=== PATIENT | female | born 1960 | race Caucasian/White ===

== ENCOUNTER 2016-10-03 19:30 | Inpatient (IN) | payer OTHER ==
[~2016-10-03] VITALS: Ht 165.1 cm; Wt 73.1 kg
[~2016-10-03 19:30] MED LIST: CLIN300C86 PO; IBUP-2067 PO
--- OUTSIDE RECORDS SUMMARY | 2016-10-03 19:41 | XMS REPORT | Continuity of Care Document ---
Author Author [facility] Organization [facility] Address Unknown Phone Unavailable Care Team Providers Care Wildlife Refuge Manager Name Role Phone PRISCA MCCOY MD Primary Care Physician [phone] Insurance Providers Guarantor Rebecca Soliman Address [address] [place] [address] Payer [employer] Other Policy Number [id number] Subscriber's Name [employer] Tiny Solisette Relationship 18 Self Effective Date 06 Chief Complaint and Reason for Visit Chief Complaint Lower Extremity Problem Reason for Visit Callus of foot [id number] Problems Active Problems Medical Problem Onset Date Status Callus of foot Unknown Acute Cellulitis of foot, right Unknown Acute Medications Current Home Medications Medication Dose Units Route Directions Days Qty Instructions Start Date Clindamycin Hcl 300 Mg Capsule 300 Mg Oral Four Times Daily 10 Days [address] Victor Manuel Kennedy [employer] [address] [phone] 09/17/16 Ibuprofen 600 Mg Tablet 1 Tab Oral Every 8 Hours Prn as needed for Pain 5 Days [address] Victor Manuel Kennedy [facility] [address] [phone] 09/17/16 Social History No social history. Hospital Discharge Instructions No hospital discharge instructions. Plan of Care Discharge Date 09/17/16 7:54pm Disposition 01 DISCHARGED HOME, SELF-CARE Condition at Discharge Stable Instructions/Education Provided Cellulitis (DC) Forms Provided [facility] Work/School Permit Prescriptions See Medication Section Referrals PRISCA MCCOY MD Address: [address] [place] [address] [place] [phone] Additional Instructions/Education Take clindamycin as directed. Go to [facility] for outpatient x-ray of the right foot. Use ibuprofen as needed for pain 2 warm soaks to the foot twice daily and then apply Vaseline to the foot for softening and moisturizing. Follow with Dr. Mccoy in the morning. Functional Status No functional status results. Allergies, Adverse Reactions, Alerts No known allergies. Immunizations Query Response on File Recorded Date/Time DTaP Vaccine History YES 09/17/16 7:31pm Influenza Vaccine Hx YES 09/17/16 7:31pm Tetanus Diptheria Vaccine History YES 09/17/16 7:31pm Vital Signs Acute Vital Signs Vital Response Date/Time Temperature (Fahrenheit) 98.0 deg F (96.8 - 99.1) 09/17/2016 7:28pm Temperature (Calculated Celsius) 36.62268 degrees C (36.0 - 37.3) 09/17/2016 7:28pm Pulse Rate (adult) 98 bpm (60 - 100) 09/17/2016 7:28pm O2 Sat by Pulse Oximetry 99 % (90 - 100) 09/17/2016 7:28pm Blood Pressure 129/76 mm Hg 09/17/2016 7:28pm Height (Inches) 65.00 inches 09/17/2016 7:28pm Weight (Kilograms) 73.000 kg 09/17/2016 7:28pm Body Mass Index (BMI) 26.0 09/17/2016 7:28pm Results No known relevant diagnostic tests, laboratory data and/or discharge summary. Procedures No known history of procedures. Encounters Encounter Location Arrival/Admit Date Discharge/Depart Date Attending Provider Registered Emergency Room [facility] 09/17/16 7:12pm NAHEED RYDER APRN Recent Diagnosis
--- OUTSIDE RECORDS SUMMARY | 2016-10-03 19:41 | XMS REPORT | Referral Summary ---
Author Author [facility] Organization [facility] Address Unknown Phone Unavailable Care Team Providers Care Geochemistry Teacher Name Role Phone Pancho Mccoy Primary Care Physician [phone] Encounter VC Date(s): 08/08/16 - 08/08/16 [facility], [address] [place] [address]- Discharge Diagnosis: Benign hypertension Discharge Diagnosis: Depression Discharge Disposition: 01-Home or Self Care Attending Physician: Kwame Mccoy MD Admitting Physician: Kwame Mccoy MD Vital Signs Most recent to 1 oldest [Reference Range]: Peripheral Pulse 97 bpm Rate [60-100 bpm] (08/08/16 3:01 PM) Blood Pressure 124/76 mmHg [90-140/60-90 mmHg] (08/08/16 3:01 PM) SpO2 98 % (08/08/16 3:01 PM) Problem List Condition Effective Dates Status Health Status Informant Benign Active hypertension(Confirm ed) Ankle Active cellulitis(Confirmed ) Depression(Confirmed Active ) Allergies, Adverse Reactions, Alerts No Known Medication Allergies Medications cranberry 0 Refill(s) Start Date: 08/08/16 Status: Ordered Diovan HCT 160 mg-25 mg oral tablet See Instructions, TAKE ONE TABLET BY MOUTH DAILY Pt must have an appt prior to next fill., # 90 tabs, 3 Refill(s), Pharmacy: [facility] #[id number] Start Date: 08/08/16 Status: Ordered venlafaxine 75 mg oral capsule, extended release 75 mg 1 caps, Oral, Daily, Pt needs appt prior to next fill., # 90 caps, 3 Refill(s), [facility][id number], 1 caps Oral Daily,Instr:Pt needs appt prior to next fill. Start Date: 08/08/16 Status: Ordered Results No data available for this section Immunizations Given and Recorded Vaccine Date Status Refusal Reason tetanus/diphth/pertuss (Tdap) adult/adol 02/21/15 Given Procedures No data available for this section Social History Social History Type Response Smoking Status Never smoker Assessment and Plan Extracted from: Title: Ambulatory Patient Education Author: Kwame Mccoy MD Date: 08/08 Family Medicine Depression, Adult Depression is feeling sad, low, down in the dumps, blue, gloomy, or empty. In general, there are two kinds of depression: Normal sadness or grief. This can happen after something upsetting. It often goes away on its own within 2 weeks. After losing a loved one (bereavement ), normal sadness and grief may last longer than two weeks. It usually gets better with time. Clinical depression. This kind lasts longer than normal sadness or grief. It keeps you from doing the things you normally do in life. It is often hard to function at home, work, or at school. It may affect your relationships with others. Treatment is often needed. GET HELP RIGHT AWAY IF: You have thoughts about hurting yourself or others. You lose touch with reality (psychotic symptoms). You may: See or hear things that are not real. Have untrue beliefs about your life or people around you. Your medicine is giving you problems. MAKE SURE YOU: Understand these instructions. Will watch your condition. Will get help right away if you are not doing well or get worse. This information is not intended to replace advice given to you by your health care provider. Make sure you discuss any questions you have with your health care provider. Document Released: 08/22/2011 Document Revised: 08/10/2015 Document Reviewed: [employer] Patient Education 2016 [employer] Preventive Medicine Managing Your High Blood Pressure Blood pressure is a measurement of how forceful your blood is pressing against the bailey of the arteries. Arteries are muscular tubes within the circulatory system. Blood pressure does not stay the same. Blood pressure rises when you are active, excited, or nervous; and it lowers during sleep and relaxation. If the numbers measuring your blood pressure stay above normal most of the time, you are at risk for health problems. High blood pressure (hypertension) is a long-term (chronic) condition in which blood pressure is elevated. A blood pressure reading is recorded as two numbers, such as 120 over 80 (or 120 /80). The first, higher number is called the systolic pressure. It is a measure of the pressure in your arteries as the heart beats. The second, lower number is called the diastolic pressure. It is a measure of the pressure in your arteries as the heart relaxes between beats. Keeping your blood pressure in a normal range is important to your overall health and prevention of health problems, such as heart disease and stroke. When your blood pressure is uncontrolled, your heart has to work harder than normal. High blood pressure is a very common condition in adults because blood pressure tends to rise with age. Men and women are equally likely to have hypertension but at different times in life. Before age 45, men are more likely to have hypertension. After 65 years of age, women are more likely to have it. Hypertension is especially common in Americans. This condition often has no signs or symptoms. The cause of the condition is usually not known. Your caregiver can help you come up with a plan to keep your blood pressure in a normal, healthy range. BLOOD PRESSURE STAGES Blood pressure is classified into four stages: normal, prehypertension, stage 1 , and stage 2. Your blood pressure reading will be used to determine what type of treatment, if any, is necessary. Appropriate treatment options are tied to these four stages: Normal Systolic pressure (mm Hg): below 120. Diastolic pressure (mm Hg): below 80. Prehypertension Systolic pressure (mm Hg): 120 to 139. Diastolic pressure (mm Hg): 80 to 89. Stage1 Systolic pressure (mm Hg): 140 to 159. Diastolic pressure (mm Hg): 90 to 99. Stage2 Systolic pressure (mm Hg): 160 or above. Diastolic pressure (mm Hg): 100 or above. RISKS RELATED TO HIGH BLOOD PRESSURE Managing your blood pressure is an important responsibility. Uncontrolled high blood pressure can lead to: A heart attack. A stroke. A weakened blood vessel (aneurysm). Heart failure. Kidney damage. Eye damage. Metabolic syndrome. Memory and concentration problems. HOW TO MANAGE YOUR BLOOD PRESSURE Blood pressure can be managed effectively with lifestyle changes and medicines ( if needed). Your caregiver will help you come up with a plan to bring your blood pressure within a normal range. Your plan should include the following: Education Read all information provided by your caregivers about how to control blood pressure. Educate yourself on the latest guidelines and treatment recommendations. New research is always being done to further define the risks and treatments for high blood pressure. Lifestylechanges Control your weight. Avoid smoking. Stay physically active. Reduce the amount of salt in your diet. Reduce stress. Control any chronic conditions, such as high cholesterol or diabetes. Reduce your alcohol intake. Medicines Several medicines (antihypertensive medicines) are available, if needed, to bring blood pressure within a normal range. Communication Review all the medicines you take with your caregiver because there may be side effects or interactions. Talk with your caregiver about your diet, exercise habits, and other lifestyle factors that may be contributing to high blood pressure. See your caregiver regularly. Your caregiver can help you create and adjust your plan for managing high blood pressure. RECOMMENDATIONS FOR TREATMENT AND FOLLOW-UP The following recommendations are based on current guidelines for managing high blood pressure in non adults. Use these recommendations to identify the proper follow-up period or treatment option based on your blood pressure reading. You can discuss these options with your caregiver. Systolic pressure of 120 to 139 or diastolic pressure of 80 to 89: Follow up with your caregiver as directed. Systolic pressure of 140 to 160 or diastolic pressure of 90 to 100: Follow up with your caregiver within 2 months. Systolic pressure above 160 or diastolic pressure above 100: Follow up with your caregiver within 1 month. Systolic pressure above 180 or diastolic pressure above 110: Consider antihypertensive therapy; follow up with your caregiver within 1 week. Systolic pressure above 200 or diastolic pressure above 120: Begin antihypertensive therapy; follow up with your caregiver within 1 week. This information is not intended to replace advice given to you by your health care provider. Make sure you discuss any questions you have with your health care provider. Document Released: 04/13/2013 Document Reviewed: 04/13/2013 [employer] Patient Education 2016 [employer] No follow up information was provided. Extracted from: Title: Office Visit Note Author: Kwame Mccoy MD Date: 08/08/16 Assessment/Plan 1.Benign hypertension Continue with the same medications. Ordered: Office Visit Level 3 Est 03743 2.Depression If her symptoms get worse she is to call so as to increase the Effexor to 150mg. Ordered: Office Visit Level 3 Est 70320
[2016-10-03] MEDS ORDERED: VENL-68 PO (19:51)
[2016-10-03] MEDS ORDERED: VALS1TAB77 PO (19:51)
[2016-10-03] MEDS ORDERED: NAPR220T61 PO (19:52)
--- NOTE | 2016-10-03 19:55 | ERPDOC ---
Departure Disposition Decision Date: Oct 03, 2016 Disposition Decision Time: 21:18 (KIKE NEVAREZ APRN) Disposition: 02 TO [facility] Impression Impression (KIKE NEVAREZ APRN) Impression: Primary Impression: Non-healing ulcer of foot Laterality: right Non-pressure ulcer stage: unspecified non-pressure ulcer stage Qualified Codes: L97.519 - Non-pressure chronic ulcer of other part of right foot with unspecified severity Additional Impression: Hyperglycemia Condition: Stable Seen By: Mid-level only (KIKE NEVAREZ APRN) Referrals: PRISCA ALLAN MD (PCP) Problems/Meds/Labs Reviewed?: Yes Medications reviewed and manag: Yes (KIKE NEVAREZ APRN) Follow up care ordered?: Yes Mental Status: Alert, Oriented (KIKE NEVAREZ APRN) HPI - Skin General General Chief Complaint: Wound Recheck Stated Complaint: PAINFUL RIGHT FOOT Time Seen by Provider: 19:50 Source: patient Exam Limitations: no limitations (KIKE NEVAREZ APRN) Time Seen by Provider: 19:50 (LINO ACE MD) HPI - Skin General Initial Comments Patient presents to the emergency department for evaluation of a right foot ulcer this been ongoing for over 2 weeks. Patient is a xrs-zkmkiur-enigdsdal diabetic, states that she does not check her blood sugars. States she developed a wound to her right foot over 2 weeks ago. [facility] and started on clindamycin. By report patient has not been particularly compliant with all of the antibiotics. Patient was given 10 day supply of clindamycin and it is questionable if patient complPatient reports probable fevers and chills. Occurred At: home Onset: Gradual Duration: other (2-3 weeks) Location: feet 1 - Redness, blistering, thick callus wound type appearance to dorsal aspect of the foot on the ball of the foot Possible Cause: no cause identified Associated Symptoms: blisters, edema, fever, DENIES: headache, petechiae Hx of Similar Symptoms: Yes (KIKE NEVAREZ APRN) Allergies: Coded Allergies: No Known Allergies (Unverified , 09/17/16) Past History Past Medical History Metabolic: diabetes, hypertension Neurological: neuropathy (KIKE NEVAREZ APRN) Social History Second Hand Exposure: No Substance Use Type: does not use Alcohol Intake: none (KIKE NEVAREZ E FIELD HUMAN RESOURCES MANAGER) Review of Systems Constitutional Constitutional: chills, fever, see HPI, weakness (KIKE NEVAREZ E FIELD HUMAN RESOURCES MANAGER) Eyes General: DENIES: burning, itching, pain Lids/Accessories: DENIES: swelling Vision: DENIES: double vision (KIKE NEVAREZ E FIELD HUMAN RESOURCES MANAGER) ENMT Ears: DENIES: pain Hearing: DENIES: tinnitus Balance: DENIES: vertigo Sinuses: DENIES: congestion, rhinorrhea Nose: DENIES: pain Mouth/Throat: DENIES: painful swallowing, scratchy throat, sore throat (KIKE NEVAREZ E FIELD HUMAN RESOURCES MANAGER) Cardiovascular Cardiac: DENIES: chest pain, orthopnea (KIKE NEVAREZ E FIELD HUMAN RESOURCES MANAGER) Pulmonary Respiratory: DENIES: cough, pleuritic chest pain (KIKE NEVAREZ E FIELD HUMAN RESOURCES MANAGER) GI Upper Abdomen: DENIES: nausea, pain, vomiting Lower Abdomen: DENIES: constipation, diarrhea, pain (KIKE NEVAREZ E FIELD HUMAN RESOURCES MANAGER) General: DENIES: burning, dysuria, frequency, urgency Female: DENIES: menarche (KIKE NEVAREZ E FIELD HUMAN RESOURCES MANAGER) Musculoskeletal General: joint pain, pain, see HPI, tenderness (KIKE NEVAREZ E FIELD HUMAN RESOURCES MANAGER) Integumentary Skin: see HPI, DENIES: itching, rash (KIKE NEVAREZ E FIELD HUMAN RESOURCES MANAGER) Neurological General: DENIES: headache (KIKE NEVAREZ E FIELD HUMAN RESOURCES MANAGER) Hematologic/Lymphatic Hematologic/Lymphatic: DENIES: anemia (KIKE NEVAREZ E FIELD HUMAN RESOURCES MANAGER) Allergic/Immunological Allergic/Immunoligical: DENIES: hives (KIKE NEVAREZ E FIELD HUMAN RESOURCES MANAGER) All other Systems All Other Systems: Reviewed and Negative (KIKE NEVAREZ E FIELD HUMAN RESOURCES MANAGER) Physical Exam General General Nourishment: well nourished, well developed, appears stated age, no acute distress, adult General Body Habitus: well groomed (KIKE NEVAREZ E FIELD HUMAN RESOURCES MANAGER) Vitals and Pain First Documented Vital Signs Date Time Temp Pulse Resp B/P Pulse Ox O2 Delivery O2 Flow Rate FiO2 10/03/16 19:42 97.8 101 17 157/77 95 Room Air (LINO ACE MD) Vitals and Pain Weight: Kilograms: 72.300 Height (feet): 5 Height (inches): 5.00 Triage Pain Scale: (KIKE NEVAREZ APRN) Normal Exams: Head: Normocephalic w/o trauma Eyes: Pupils are PERRLA w/ EOMI, No scleral icterus, irritation, or foreign bodies noted Chest/Resp: Clear all house, with good airflow, and symmetry bilaterally CV: Regular rate and rhythm, without murmur or gallop, Pulses 2+ all extremities, capillary refill, <2 seconds all ext., no pedal edema noted Abdomen: Bowel sounds positive, soft, non-tender, non-distended, no hepatosplenomegaly, masses or bruits noted Lymphatic: No lymphadenopathy, or lymphedema noted Musculoskeletal: No tenderness, or deformity noted, good range of motion, all extremities Integumentary: No rashes, hives, or bruising noted, hair and nails, without abnormality Neurologic: Patient is alert, and oriented, cranial nerves, motor/sensory/ cerebellar, exams w/o gross deficits, to observation Psychiatric: Patient exhibits, appropriate attention, emotion and affect (KIKE NEVAREZ APRN) Differential Diagnoses Considering: Abrasion, Abscess, Carbuncle, Cellulitis (KIKE NEVAREZ APRN) Progress Results/Orders Orders Procedure Category Date Status Time Cbc W/Auto LAB 10/03/16 Complete Diff-Reflex Manual Cmp - Comprehensive LAB 10/03/16 Complete Metabolic Lactate - Lactic Acid LAB 10/03/16 Complete UA, LAB 10/03/16 Complete Dip&Micro(Complete) & 20:09 Foot Right 3 Views RAD 10/03/16 Resulted Iv Lock (Ed Only) EDM 10/03/16 Transmitted 20:09 Levofloxacin 750 Mg PHA 10/03/16 Complete Ivpb (Levaquin 750 M 20:45 Normal Saline (Normal PHA 10/03/16 Complete Saline Iv) 21:00 Place In Facility: ED ADM 10/03/16 Transmitted 21:14 Place In Facility As: ADMIT 10/03/16 Transmitted 21:17 Up In Room With Assist TRUNG 10/03/16 In Process Consistent Carb 2000 DIET 10/04/16 Complete Calories Breakfast Normal Saline (Normal PHA 10/03/16 In Process Saline Iv) 21:17 Hydrocodone/Acetaminophen PHA 3/3/17 In Process ([place] 5/325) 21:30 Hydromorphone PHA 10/03/16 In Process (Dilaudid) 21:30 Ondansetron Inj PHA 10/03/16 In Process (Zofran) 21:30 Cbc W/Auto LAB 10/04/16 Complete Diff-Reflex Manual 04:00 Bmp - Basic Metabolic LAB 10/04/16 Complete Panel 04:00 Measure Vital Signs TRUNG 10/03/16 In Process 21:17 Glucose Oral Gel 40% PHA 10/03/16 In Process (Glutose 15) 21:30 Dextrose 50% Pfs PHA 10/03/16 In Process (D50w) 21:30 Insulin Regular PHA 10/03/16 In Process (Humulin R) 21:30 Blood Glucose TRUNG 10/03/16 In Process Assessment Bgm 21:17 Piperacillin/Tazobactam PHA 10/04/16 Complete (Zosyn) 03:00 Vancomycin (Vancocin) PHA 10/03/16 Complete 21:30 (LINO ACE MD) Lab Results Laboratory Tests Test 10/03/16 20:28 10/03/16 20:32 Urine Collection Type Voided-not cc-midstr Urine Color Yellow Urine Turbidity Clear Urine pH 5.5 Urine Specific Norman 1.010 Urine Protein Negative Urine Glucose (UA) 3+ Urine Ketones Negative Urine Blood Negative Urine Nitrite Negative Urine Bilirubin Negative Urine Urobilinogen 0.2EU/DL Urine Leukocyte Esterase Negative Urine RBC None seen/HPF Urine WBC None seen/HPF Urine Bacteria Trace Urine Yeast Trace Urine Culture Indicated Cult not indicated White Blood Count 7.5T/MM3 Red Blood Count 4.25M/MM3 Hemoglobin 13.5GM/DL Hematocrit 38.8% Mean Corpuscular Volume 91.3UM3 Mean Corpuscular Hemoglobin 31.8UUG Mean Corpuscular Hemoglobin Concent 34.8GM/DL RDW Standard Deviation 38.3FL Platelet Count 225T/MM3 Mean Platelet Volume 9.4UM3 Immature Granulocyte % (Auto) 0.1% Neutrophils (%) (Auto) 63.1% Lymphocytes (%) (Auto) 27.7% Monocytes (%) (Auto) 8.3% Eosinophils (%) (Auto) 0.7% Basophils (%) (Auto) 0.1% Absolute Immature Granulocyte (auto 0.01T/MM3 Absolute Neutrophils (auto) 4.7T/MM3 Absolute Lymphocytes (auto) 2.1T/MM3 Absolute Monocytes (auto) 0.6T/MM3 Absolute Eosinophils (auto) 0.1T/MM3 Absolute Basophils (auto) 0.0T/MM3 Turbidity < 20 Sodium Level 131MEQ/L Potassium Level 3.6MEQ/L Chloride Level 88MEQ/L Carbon Dioxide Level 33MEQ/L Anion Gap 10MEQ/L Blood Urea Nitrogen 19.0MG/DL Creatinine 0.7MG/DL Glomerular Filtration Rate Calc 86 BUN/Creatinine Ratio 27RATIO Glucose Level 621MG/DL Calculated Osmolality 284MOSM/KG Calcium Level 9.5MG/DL Total Bilirubin 0.80MG/DL Icterus Index < 2 Aspartate Amino Transf (AST/SGOT) 23U/L Alanine Aminotransferase (ALT/SGPT) 21U/L Alkaline Phosphatase 143U/L Total Protein 7.9G/DL Albumin 4.0G/DL Globulin 3.9G/DL Albumin/Globulin Ratio 1.0RATIO Plasma Lactate 1.8MMOL/L Chemistry Specimen Hemolysis < 15 (LINO ACE MD) Medications Current ED Medications Levofloxacin 750 mg/Dextrose/Water 150 ml @ 100 mls/hr O ONCE IV Last administered on 10/03/16 20:53; Start 10/03/16 at 20:45; Stop 10/03/16 at 22:14; Status DC Sodium Chloride 1,000 ml @ 1,000 mls/hr Q1H ONCE IV Last administered on 21:05; Start 10/03/16 at 21:00; Stop 10/04/16 at 07:13; Status DC Sodium Chloride (Normal Saline IV) 1,000 ml @ 100 mls/hr Q10H IV Last administered on 10/06/16 15:14; Start 10/03/16 at 21:17 (LINO ACE MD) Progress Progress Dr Simpson notified and will admit patient. (KIKE NEVAREZ APRN) Xray Xray : Xray: Foot R Interpretation: Normal, Interpreted by Me (no obvious signs of osteomyelitis ) (LINO ACE MD) KIKE NEVAREZ APRN Oct 03, 2016 19:55 LINO ACE MD Oct 06, 2016 23:42
--- NOTE | 2016-10-03 20:19 | NUR ---
XRAY IN ROOM
[2016-10-03 20:36] LABS: BLOOD, URINE NEGATIVE (NEGATIVE); COLOR,URINE YELLOW (YELLOW); LEUKOCYTE ESTERASE ,URINE NEGATIVE (NEGATIVE); NITRITE,URINE NEGATIVE (NEGATIVE); UROBILINOGEN,URINE 0.2 EU/DL (NORMAL)
[2016-10-03 20:40] LABS: BASOPHILS % (AUTO) 0.1 % (0-2); EOSINOPHILS # (AUTO) 0.1 T/MM3 (0-0.5); EOSINOPHILS % (AUTO) 0.7 % (0-4); HCT - HEMATOCRIT 38.8 % (36-46); HGB - HEMOGLOBIN 13.5 GM/DL (12-16); IMMATURE GRANULOCYTE # (AUTO) 0.01 T/MM3 (0.00-0.03); IMMATURE GRANULOCYTE % (AUTO) 0.1 % (0.0-0.5); LYMPHOCYTES # (AUTO) 2.1 T/MM3 (1-4.8); LYMPHOCYTES % (AUTO) 27.7 % (23-45); MEAN CORPUSCULAR HGB 31.8 UUG (26-34); MEAN CORPUSCULAR HGB CONC(MCHC 34.8 GM/DL (31-37); MEAN CORPUSCULAR VOLUME 91.3 UM3 (80-100); MEAN PLATELET VOLUME 9.4 UM3 (9.4-12.4); MONOCYTES # (AUTO) 0.6 T/MM3 (0-0.8); MONOCYTES % (AUTO) 8.3 % (0-9.0); NEUTROPHILS #(AUTO)-ABSOLUTE 4.7 T/MM3 (1.8-7.7); NEUTROPHILS % (AUTO) 63.1 % (33-66); RED BLOOD COUNT 4.25 M/MM3 (4.00-5.20); WBC - WHITE BLOOD COUNT 7.5 T/MM3 (4.5-11.0)
[2016-10-03] MEDS ORDERED: LEVOFLOXACIN 750 mg IVPB 750 MG in D5W 150 ML IV ONE (20:45)
[2016-10-03 20:46] LABS: LACTATE - LACTIC ACID 1.8 MMOL/L (0.6-2.2)
[2016-10-03 20:47] LABS: ALKALINE PHOSPHATASE 143 U/L (38-126); ALT (SGPT) 21 U/L (9-52); ANION GAP 10 MEQ/L (5-15); AST (SGOT) 23 U/L (14-36); BUN/CREATININE RATIO 27 RATIO (6-26); CALCIUM 9.5 MG/DL (8.4-10.2); CHLORIDE 88 MEQ/L (98-107); CO2 - CARBON DIOXIDE 33 MEQ/L (22-30); CREATININE 0.7 MG/DL (0.7-1.2); GLOMERULAR FILTRATION RATE 86; POTASSIUM 3.6 MEQ/L (3.6-5); SODIUM 131 MEQ/L (134-144); TOTAL PROTEIN 7.9 G/DL (6.3-8.2)
[2016-10-03 20:55] LABS: BACTERIA,URINE TRACE (NEGATIVE); RBC,URINE NONE SEEN /HPF (0-3); WBC,URINE NONE SEEN /HPF (0-5); YEAST,URINE TRACE (NEGATIVE)
[2016-10-03 20:57] LABS: GLUCOSE 621 MG/DL (65-110)
[2016-10-03] MEDS ORDERED: NORMAL SALINE 1,000 ML IV ONE (21:00)
[2016-10-03] MEDS ORDERED: HYDROMORPHONE 2mg/ml INJECTION IV PRN (21:30)
[2016-10-03] MEDS ORDERED: VANCOMYCIN 1,000 MG in NORMAL SALINE 250 ML IV SCH (21:30)
[2016-10-03] MEDS ORDERED: GLUCOSE ORAL GEL 40% 37.5 G TUBE PO PRN (21:30)
[2016-10-03] MEDS ORDERED: DEXTROSE 50% SYRINGE 50ml (Eq. 1 AMP) IV PRN (21:30)
--- NOTE | 2016-10-03 21:31 | NUR ---
MATILDA RO RN ASSIGNS ROOM 141
--- NOTE | 2016-10-03 21:49 | NUR ---
ADMIT REPORT GIVEN TO AKILAH CARNEY
[2016-10-03 21:58] VITALS: BP 144/81; PULSE 87; RESP 16; TEMP 97.4; O2SAT 100
--- NOTE | 2016-10-03 21:58 | NUR ---
ADMIT PATIENT CAME TO UNIT IN WHEELCHAIR FROM ED.PATIENT ALERT AND ORIENTEDX3. ON ROOM AIR. DENIES CHEST PAIN ,SOA,OR N/V. PATIENT WITH LARGE APPROXIMATELY 6CM ESCAR # 1 MTP JOINT PLANAR SURFACE WITH ERYTHEMA WRAPPING AROUND RT LAT FOOT AND TOE. EDEMA AT RT FOOT . PATIENT C/O TENDER WITH ROM. BGM [address] DR MOSER WAS NOTIFIED VIA TIGER TEXT. PATIENT AMBULATED TO BATHROOM WITH STANDBY ASSIST.CONTINUE TO MONITOR.
[2016-10-03 22:09] VITALS: Ht 165.1 cm; Wt 73.1 kg
[2016-10-03] MEDS: NORMAL SALINE 1,000 ML IV SCH (22:27)
[2016-10-03] MEDS: PIPERACILLIN/TAZOBACTAM 3.375 G in NORMAL SALINE 100 ML IV SCH (22:41)
[2016-10-03] MEDS ORDERED: VANCOMYCIN 2,000 MG in NORMAL SALINE 500 ML IV ONE (22:45)
[2016-10-03] MEDS ORDERED: INSULIN REGULAR 100 UNIT/ML SQ ONE (23:45)
[2016-10-03] MEDS: HYDROCODONE/APAP 5 mg/325 mg TABLET PO PRN (23:52)
[2016-10-04] VITALS (9 sets, daily range): BP systolic 115–132; BP diastolic 67–78; PULSE 82–93; RESP 15–18; TEMP 96.8–98.7; O2SAT 91–98
--- NOTE | 2016-10-04 00:05 | NUR ---
STATUS PATIENT WAS GIVEN 10 UNIT HUMULIN R BY ORDER. PATIENT C/O PAIN AT RT BIG TOE ,RATED 6/10. PRN NORCO 5 WAS GIVEN. PATIENT RESTING IN BED AT THIS TIME.
--- NOTE | 2016-10-04 01:43 | HPPDOC ---
PEACE MOSER MD 10/04/16 0137: HPI - Adult Date DATE: 10/04/16 TIME: 02:34 General Chief Complaint: right foot is infected History of Present Illness This is a 56-year-old female who is a type II diabetic. The patient developed an ulcer on her right heel and foot approximately 2 weeks ago. The patient was seen by her primary care physician who started her on clindamycin. The patient has completed a course of clindamycin with continued worsening of her ulcer on her foot. The patient presents to the emergency department [facility] for further assessment and management of a worsening cellulitis. At this time the patient is to be admitted for IV antibiotics. Plain x-ray of the foot was without clear evidence of osteomyelitis. Past Medical History Past Medical History DM2, Hypertension, Depression Surgical History Patient's Surgical History: ?exploratory surgery in her 20's Current Medications Home Meds Active Scripts Clindamycin HCl (Clindamycin HCl) 300 Mg Capsule, 300 MG PO QID for 10 Days, # 40 CAP [address] Victor Manuel Kennedy [employer] [facility] [address] [place] [address] Prov:NAHEED RYDER STREETCAR REPAIRER 09/17/16 Reported Medications Naproxen Sodium (Aleve) 220 Mg Tablet, 440 MG PO BIDWM Y for PAIN 10/03/16 Valsartan/Hydrochlorothiazide (Valsartan-Hctz 160-25 mg Tab) 1 Each Tablet, 1 TAB PO DAILY 10/03/16 Venlafaxine HCl (Venlafaxine HCl ER) 75 Mg Cap.er.24h, 75 MG PO DAILY 10/03/16 Allergies: Coded Allergies: No Known Allergies (Unverified , 09/17/16) Family History Family History: non contributory Social History Second Hand Exposure: No Substance Use Type: does not use Alcohol Intake: none Marital Status: Sexuality: male partner Household Members: spouse Advance Directives: Yes DPOA for Healthcare Only Review of Systems All Other Systems All Other Systems: Reviewed (remainder of 10-point ROS Neg.) Comments The patient denies any headache, has had some fever chills and sweats, no sores in her mouth, no neck pain, no chest pain, no cough or URI symptom the patient denies any abdominal pain, no nausea or vomiting, no change in bowel movements, the patient has no urinary symptoms, denies any change in her blood sugars, which a bit elevated, the patient has pain to her right foot, which is worsening over the past 2 days, the patient has had drainage from the ball of her foot. A 10 point review of systems otherwise negative except for described above Physical Exam General General Nourishment: well nourished, well developed, obese, adult General Body Habitus: well groomed Vital Signs Vital Signs Date Time Temp Pulse Resp B/P Pulse Ox O2 Delivery O2 Flow Rate FiO2 10/04/16 00:00 97.2 84 16 123/76 97 Room Air Height (Feet): 5 Height (Inches): 5.00 Telemetry Rhythm: Sinus Rhythm Eyes Brief: FOUND: EOMI Comments neck moves easily without tenderness Respiratory Brief: FOUND: clear all house, equal bilaterally, symmetrical, NOT FOUND: other, rales, spasm, tenderness, wheezes Cardiovascular (brief) Cardiac Brief: FOUND: pedal edema, regular rate, regular rhythm, NOT FOUND: click, gallop, murmur, other, peripheral edema, rub Capillary Refill: <2 sec Abdomen (brief) Abdominal Brief: FOUND: soft Comments obese Musculoskeletal (brief) Comments patient wiht large approximately 6 cm escar on # 1 MTP joint planar surface with erythema wrapping around lat foot and toe. tender with ROM per nursing. Integumentary (brief) Integumentary Brief: FOUND: pink, warm Neurologic (brief) Comments intact Neurologic RN Documented GCS Eye Opening: (4)Spontaneous Verbal: (5)Oriented Motor: (6)Obeys Commands Total: Psychiatric (brief) FOUND: alert, normal affect, oriented Laboratory Laboratory Tests Test 10/03/16 20:28 10/03/16 20:32 Urine Collection Type Voided-not cc-midstr Urine Color Yellow Urine Turbidity Clear Urine pH 5.5 Urine Specific [place] 1.010 Urine Protein Negative Urine Glucose (UA) 3+ Urine Ketones Negative Urine Blood Negative Urine Nitrite Negative Urine Bilirubin Negative Urine Urobilinogen 0.2EU/DL Urine Leukocyte Esterase Negative Urine RBC None seen/HPF Urine WBC None seen/HPF Urine Bacteria Trace Urine Yeast Trace Urine Culture Indicated Cult not indicated White Blood Count 7.5T/MM3 Red Blood Count 4.25M/MM3 Hemoglobin 13.5GM/DL Hematocrit 38.8% Mean Corpuscular Volume 91.3UM3 Mean Corpuscular Hemoglobin 31.8UUG Mean Corpuscular Hemoglobin Concent 34.8GM/DL RDW Standard Deviation 38.3FL Platelet Count 225T/MM3 Mean Platelet Volume 9.4UM3 Immature Granulocyte % (Auto) 0.1% Neutrophils (%) (Auto) 63.1% Lymphocytes (%) (Auto) 27.7% Monocytes (%) (Auto) 8.3% Eosinophils (%) (Auto) 0.7% Basophils (%) (Auto) 0.1% Absolute Immature Granulocyte (auto 0.01T/MM3 Absolute Neutrophils (auto) 4.7T/MM3 Absolute Lymphocytes (auto) 2.1T/MM3 Absolute Monocytes (auto) 0.6T/MM3 Absolute Eosinophils (auto) 0.1T/MM3 Absolute Basophils (auto) 0.0T/MM3 Turbidity < 20 Sodium Level 131MEQ/L Potassium Level 3.6MEQ/L Chloride Level 88MEQ/L Carbon Dioxide Level 33MEQ/L Anion Gap 10MEQ/L Blood Urea Nitrogen 19.0MG/DL Creatinine 0.7MG/DL Glomerular Filtration Rate Calc 86 BUN/Creatinine Ratio 27RATIO Glucose Level 621MG/DL Calculated Osmolality 284MOSM/KG Calcium Level 9.5MG/DL Total Bilirubin 0.80MG/DL Icterus Index < 2 Aspartate Amino Transf (AST/SGOT) 23U/L Alanine Aminotransferase (ALT/SGPT) 21U/L Alkaline Phosphatase 143U/L Total Protein 7.9G/DL Albumin 4.0G/DL Globulin 3.9G/DL Albumin/Globulin Ratio 1.0RATIO Plasma Lactate 1.8MMOL/L Chemistry Specimen Hemolysis < 15 Radiology right foot xray reported with noevidence of osteo. report pending Assessment & Plan Assessment 1. Diabetic foot ulcer acute present on admission: This is a significant wound at this point in time. Well start vancomycin, Zosyn, cultures were done by the ER, plain x-ray was reassuring for obvious osteomyelitis, consider MRI of the foot to better define the possibility of osteomyelitis. A wound care consult is indicated. Potential surgical evaluation would be indicated. There is drainage from the wound 2. Type 2 diabetes mellitus chronic present on admission: Poor control. Correctional plan. Adjust insulin as indicated. Patients sugars were significantly elevated on presentation, will monitor sugars carefully and utilize correctional plan aggressively. 3. Hypertension chronic present on admission: Patient is on an ARB and hydrochlorothiazide, will hold acutely overnight until sure blood pressure is stable. Restart in the morning and adjust as indicated. 4. Dehydration and acute present admission: IV fluids 5. Hyponatremia acute present on admission: Secondary to hypovolemia, IV fluids and repeat labs in the morning, additionally patients hyper-glycemia is contributing as well Code Status Full Code Hospital Course Summary Disclaimer The hospital course summary below is not to be considered part of the above Progress Note. AIRAM QUINTANA MD 10/07/16 1041: Past Medical History Current Medications Home Meds Active Scripts Clindamycin HCl (Clindamycin HCl) 300 Mg Capsule, 300 MG PO QID for 10 Days, # 40 CAP [address] Victor Manuel Kennedy [employer] [facility] [address] [phone] Prov:NAHEED RYDER STREETCAR REPAIRER 09/17/16 Reported Medications Naproxen Sodium (Aleve) 220 Mg Tablet, 440 MG PO BIDWM Y for PAIN 10/03/16 Valsartan/Hydrochlorothiazide (Valsartan-Hctz 160-25 mg Tab) 1 Each Tablet, 1 TAB PO DAILY 10/03/16 Venlafaxine HCl (Venlafaxine HCl ER) 75 Mg Cap.er.24h, 75 MG PO DAILY 10/03/16 Allergies: Coded Allergies: No Known Allergies (Unverified , 09/17/16) Assessment & Plan Problems: (1) Non-healing ulcer of foot Onset Date: ~ 09/20/2016 Status: Acute Qualifiers: Laterality: right Non-pressure ulcer stage: unspecified non-pressure ulcer stage Qualified Codes: L97.519 - Non-pressure chronic ulcer of other part of right foot with unspecified severity Assessment & Plan: Nation has to week history of foot wound without drainage. There is low likelihood of osteomyelitis. Patient on Zosyn and vancomycin (2) Diabetes mellitus type II, uncontrolled Status: Chronic Qualifiers: Diabetes mellitus complication status: with skin complications Diabetes mellitus complication detail: with foot ulcer Assessment & Plan: Hemoglobin A-1 C pending. Likelihood of very poor control (3) Hyperglycemia Status: Acute Assessment & Plan: Trending down with insulin (4) HTN (hypertension) Status: Chronic PEACE MOSER MD Oct 04, 2016 01:37 AIRAM QUINTANA MD Oct 07, 2016 10:41
--- NOTE | 2016-10-04 02:59 | NUR ---
Chart Check 24 hour chart check completed
[2016-10-04] MEDS: PIPERACILLIN/TAZOBACTAM 3.375 G in NORMAL SALINE 100 ML IV SCH ×4 (04:58→21:20)
[2016-10-04 05:14] LABS: BASOPHILS % (AUTO) 0.3 % (0-2); EOSINOPHILS # (AUTO) 0.1 T/MM3 (0-0.5); EOSINOPHILS % (AUTO) 2.1 % (0-4); HCT - HEMATOCRIT 33.2 % (36-46); HGB - HEMOGLOBIN 11.3 GM/DL (12-16); LYMPHOCYTES # (AUTO) 2.9 T/MM3 (1-4.8); LYMPHOCYTES % (AUTO) 46.4 % (23-45); MEAN PLATELET VOLUME 9.6 UM3 (9.4-12.4); MONOCYTES # (AUTO) 0.6 T/MM3 (0-0.8); MONOCYTES % (AUTO) 9.7 % (0-9.0); NEUTROPHILS #(AUTO)-ABSOLUTE 2.6 T/MM3 (1.8-7.7); NEUTROPHILS % (AUTO) 41.5 % (33-66); RED BLOOD COUNT 3.65 M/MM3 (4.00-5.20); WBC - WHITE BLOOD COUNT 6.2 T/MM3 (4.5-11.0)
[2016-10-04 05:36] LABS: ANION GAP 7 MEQ/L (5-15); BUN/CREATININE RATIO 30 RATIO (6-26); CALCIUM 8.6 MG/DL (8.4-10.2); CHLORIDE 99 MEQ/L (98-107); CO2 - CARBON DIOXIDE 30 MEQ/L (22-30); CREATININE 0.5 MG/DL (0.7-1.2); GLOMERULAR FILTRATION RATE 127; GLUCOSE 247 MG/DL (65-110); POTASSIUM 3.4 MEQ/L (3.6-5); SODIUM 136 MEQ/L (134-144)
[2016-10-04] MEDS: INSULIN REGULAR 100 UNIT/ML SQ PRN ×4 (06:12→21:22)
[2016-10-04] MEDS: HYDROCODONE/APAP 5 mg/325 mg TABLET PO PRN ×3 (06:21→21:21)
[2016-10-04] MEDS ORDERED: PIPERACILLIN/TAZOBACTAM 3.38 G in NORMAL SALINE 100 ML IV SCH (09:00)
--- NOTE | 2016-10-04 09:08 | PNPDOC ---
Subjective Date DATE: 10/04/16 TIME: 08:54 Subjective This 56-year-old woman who is only been diabetic for the last few years. She has not been well-controlled and 2 weeks ago she developed a right heel ulcer. She went into her primary care physician and completed a course clindamycin but after 7 days the ulcer had only worsened. She's not had any deep tissue injury such as puncture and is not seen any expression of puss from it. Overall she claims to still have good sensation to her feet. (I have read and reviewed the history and physical performed by the overnight tele-hospitalist. I have read and agree with the history of presenting illness, past medical history, surgical history, social history, family history, physical exam, assessment and plan) Objective Vital Signs Vital signs Vital Signs Date Time Temp Pulse Resp B/P Pulse Ox O2 Delivery O2 Flow Rate FiO2 10/04/16 07:28 83 15 95 Room Air 10/04/16 07:22 97.5 115/67 Telemetry Rhythm: Sinus Rhythm Height (Feet): 5 Height (Inches): 5.00 Weight (Kilograms): 73.500 Eyes (Brief) Eyes: FOUND: EOMI, PERRL, NOT FOUND: scleral icterus Neck (Brief) Neck: FOUND: midline, NOT FOUND: JVD, adenopathy, nuchal rigidity Respiratory (Brief) Respiratory: FOUND: clear all house, equal bilaterally, NOT FOUND: rales, wheezes Cardiovascular (Brief) Cardiac: FOUND: regular rate, regular rhythm, NOT FOUND: murmur Abdomen (Brief) Abdominal: FOUND: BS normo active x4, soft Extremities (Brief) Extremity : Side: Right Extremity: foot Comments Large stage page 2 pressure ulceration of the medial aspect ball of the right foot. There is a central portion that is unsustainable due to a 2 cm eschar. Integumentary (Brief) Comments Within normal limits excepting the extremity mentioned above Neurologic (Brief) Neurological: FOUND: cranial 2-12 intact, motor Psychiatric (Brief) Psychiatric: FOUND: alert, attentive, normal affect, oriented Laboratory Laboratory Laboratory Tests 10/03/16 20:32 10/04/16 04:29 Laboratory Tests 10/03/16 20:32 10/04/16 04:29 Radiology Plain film x-ray foot to not show any evidence of bony erosion Assessment & Plan Problems: (1) Non-healing ulcer of foot Onset Date: ~ 09/20/2016 Status: Acute Qualifiers: Laterality: right Non-pressure ulcer stage: unspecified non-pressure ulcer stage Qualified Codes: L97.519 - Non-pressure chronic ulcer of other part of right foot with unspecified severity Assessment & Plan: Patient is on vancomycin and so submit this time having failed clindamycin orally on an outpatient basis. Low likelihood of deep tissue infection based upon clinical findings in history of the wound itself. We'll have wound care follow the foot as well. Agree with the overnight total hospitalist patient meets impatient criteria (2) Diabetes mellitus type II, uncontrolled Status: Chronic Qualifiers: Diabetes mellitus complication status: with skin complications Diabetes mellitus complication detail: with foot ulcer Assessment & Plan: Explained to the patient that she will need better glucose control to prevent further issues and to encourage wound healing (3) Hyperglycemia Status: Acute Assessment 1. Diabetic foot ulcer acute present on admission: This is a significant wound at this point in time. Well start vancomycin, Zosyn, cultures were done by the ER, plain x-ray was reassuring for obvious osteomyelitis, consider MRI of the foot to better define the possibility of osteomyelitis. A wound care consult is indicated. Potential surgical evaluation would be indicated. There is drainage from the wound 2. Type 2 diabetes mellitus chronic present on admission: Poor control. Correctional plan. Adjust insulin as indicated. Patients sugars were significantly elevated on presentation, will monitor sugars carefully and utilize correctional plan aggressively. 3. Hypertension chronic present on admission: Patient is on an ARB and hydrochlorothiazide, will hold acutely overnight until sure blood pressure is stable. Restart in the morning and adjust as indicated. 4. Dehydration and acute present admission: IV fluids 5. Hyponatremia acute present on admission: Secondary to hypovolemia, IV fluids and repeat labs in the morning, additionally patients hyper-glycemia is contributing as well Code Status Full Code Hospital Course Summary Disclaimer The hospital course summary below is not to be considered part of the above Progress Note. AIRAM QUINTANA MD Oct 04, 2016 08:58
[2016-10-04] MEDS: VANCOMYCIN 1,250 MG in NORMAL SALINE 250 ML IV SCH ×2 (10:08→18:50)
[2016-10-04] MEDS ORDERED: DOCUSATE SODIUM 100 MG CAPSULE PO PRN (14:00)
[2016-10-04] MEDS ORDERED: PRN ORDERS MC (14:00)
--- NOTE | 2016-10-04 14:03 | NUR ---
PAIN NORCO 5/325 MG i TAB PO GIVEN FOR C/O'S RIGHT FOOT PAIN RATED 5/10. PT ALSO REQUESTS SOMETHING TO HELP HER HAVE A BOWEL MOVEMENT. THIS IS DISCUSSED WITH DR. QUINTANA. COLACE 100 MG PO BID PRN AND PRN ORDERS ORDERED FOR THIS PT. COLACE 100 MG PO GIVEN WITH THE PAIN MEDICATION. WILL MONITOR.
[2016-10-04] MEDS: NORMAL SALINE 1,000 ML IV SCH (17:38)
--- NOTE | 2016-10-04 19:41 | NUR ---
SHIFT SUMMARY PT ALERT AND ORIENTED X3. PT ON RA, DENIES SOA. RATES PAIN 3/10 AT THIS TIME, PRN NORCO ADMINISTERED EARLIER THIS SHIFT AND PT REPORTED DECREASED PAIN. UP WITH STAND BY ASSIST, STEADY ON FEET. LEGS ELEVATED WHILE PT IN BED. NO INCREASED REDNESS NOTED TO RIGHT FOOT. PT RESTED MOST OF THE AFTERNOON, DUE TO REPORTING SHE DIDN'T SLEEP WELL LAST NIGHT. ADEQUATE URINE OUTPUT. IVF INFUSING ORDERED INTO RIGHT FOREARM. BED ALARM ON, CALL LIGHT WITHIN REACH.
[2016-10-05] VITALS: BP 100/65; PULSE 89; RESP 15; TEMP 97.5; O2SAT 91
[2016-10-05] MEDS: VANCOMYCIN 1,250 MG in NORMAL SALINE 250 ML IV SCH ×3 (02:11→17:28)
[2016-10-05] MEDS: NORMAL SALINE 1,000 ML IV SCH ×3 (03:17→13:17)
[2016-10-05] MEDS: PIPERACILLIN/TAZOBACTAM 3.375 G in NORMAL SALINE 100 ML IV SCH ×4 (03:19→20:34)
[2016-10-05 04:12] VITALS: BP 129/76; PULSE 95; RESP 16; TEMP 97.1; O2SAT 88
--- NOTE | 2016-10-05 04:49 | NUR ---
SHIFT SUMMARY PT ALERT/ORIENTED X3. VITAL SIGNS STABLE. PT WAS ON RA UNTIL BEDTIME, 02 SATS DROPPED TO 88, PLACED PT ON 2L. DENIES SOA. RATED PAIN 5/10, PRN NORCO ADMINISTERED, AND PT REPORTED DECREASED PAIN. WRAPPED WOUNDS FOR REQUESTED AMBULATION, BUT PT WAS TOO TIRED. HEELS ELEVATED OFF BED. PT SLEPT WELL THROUGH THE NIGHT. BGM WAS 314, GAVE 7 UNITS INSULIN. ADEQUATE URINE OUTPUT. VANCO, ZOSYN, AND NS INFUSING ORDERED INTO RIGHT FOREARM. SIDERAILS UP, BED ALARM ON, CALL LIGHT WITHIN REACH, WILL CONTINUE TO MONITOR.
[2016-10-05] MEDS: INSULIN REGULAR 100 UNIT/ML SQ PRN ×4 (06:42→21:30)
[2016-10-05 08:00] VITALS: BP 133/77; PULSE 89; RESP 16; TEMP 99.1; O2SAT 95
--- NOTE | 2016-10-05 08:00 | NUR ---
Pulses Right pedal pulse palpable, posterior tibialis found with doppler.
[2016-10-05] MEDS: ONDANSETRON 4mg/2ml INJECTION IV PRN ×2 (09:00→16:58)
--- NOTE | 2016-10-05 09:55 | DI ---
Indication: ITS.REASON: diabetic ulcer PROCEDURE: FOOT RIGHT 3 VIEWS: Encounter: Initial Comparison: September 18, 2016 Findings: There is no acute fracture, dislocation or malalignment identified. Calcaneal spurring. No osseous erosions identified. Impression: No acute osseous abnormality. .
--- NOTE | 2016-10-05 10:00 | NUR ---
DM teaching Educated patient on skin care for DM. Instructed patient she should be wearing shoes at all times to protect her feet. Also instructed patient to check about getting diabetic shoes with custom inserts if necessary. Patient states she understands.
--- NOTE | 2016-10-05 11:45 | NUR ---
BGM BGM 207, sliding scale insulin given.
--- NOTE | 2016-10-05 11:45 | NUR ---
Status Patient alert and oriented. Has been wanting to sleep today. Complained of nausea, zofran given prior and patient state has given her some relief. Patient also complains of pain to foot, will give pain meds with lunch per patient request.
[2016-10-05] MEDS ORDERED: BUTALBITAL/APAP/CAFFEINE TABLET PO PRN (12:15)
--- NOTE | 2016-10-05 12:52 | PNPDOC ---
Subjective Date DATE: 10/05/16 TIME: 12:43 Subjective Patient found lying in the dark with drapes pulled complaining of headache. She feels ill this time. She tests to some [place] but no significant fevers chills. She states that moderately sore throat Objective Vital Signs Vital signs Vital Signs Date Time Temp Pulse Resp B/P Pulse Ox O2 Delivery O2 Flow Rate FiO2 10/05/16 08:00 99.1 89 16 133/77 95 Room Air Telemetry Rhythm: Sinus Rhythm Height (Feet): 5 Height (Inches): 5.00 Weight (Kilograms): 75.200 General General Appearance: Alert, Orientated x 3, Mild Distress Eyes (Brief) Eyes: FOUND: EOMI, PERRL Neck (Brief) Neck: NOT FOUND: adenopathy, nuchal rigidity Respiratory (Brief) Respiratory: FOUND: clear all house, equal bilaterally, NOT FOUND: rales, wheezes Cardiovascular (Brief) Cardiac: FOUND: regular rate, regular rhythm, NOT FOUND: murmur Capillary Refill: <2 sec Extremities (Brief) Extremity : Side: Right Extremity: foot Comments Right he'll still shows moderate to centimeter eschar. The wound has been cleaned up around it for skin and shows some clearing of the erythema Neurologic (Brief) Neurological: FOUND: cranial 2-12 intact, motor Psychiatric (Brief) Psychiatric: FOUND: alert, normal affect, oriented Laboratory Laboratory Laboratory Tests 10/03/16 20:32 10/04/16 04:29 Laboratory Tests 10/03/16 20:32 10/04/16 04:29 Assessment & Plan Problems: (1) Non-healing ulcer of foot Onset Date: ~ 09/20/2016 Status: Acute Qualifiers: Laterality: right Non-pressure ulcer stage: unspecified non-pressure ulcer stage Qualified Codes: L97.519 - Non-pressure chronic ulcer of other part of right foot with unspecified severity Assessment & Plan: Patient is on vancomycin and Zosyn. Continue medication at this time. Has failed outpatient clindamycin (2) Diabetes mellitus type II, uncontrolled Status: Chronic Qualifiers: Diabetes mellitus complication status: with skin complications Diabetes mellitus complication detail: with foot ulcer Assessment & Plan: Glucose is still reading rather high I'm inclined to begin a higher sliding scale or perhaps a low dose of Lantus tonight (3) Hyperglycemia Status: Acute DVT Prophylaxis: Lovenox Code Status Full Code Hospital Course Summary Disclaimer The hospital course summary below is not to be considered part of the above Progress Note. Hospital Course Summary 1. Diabetic foot ulcer acute present on admission: This is a significant wound at this point in time. Well start vancomycin, Zosyn, cultures were done by the ER, plain x-ray was reassuring for obvious osteomyelitis, consider MRI of the foot to better define the possibility of osteomyelitis. A wound care consult is indicated. Potential surgical evaluation would be indicated. There is drainage from the wound 2. Type 2 diabetes mellitus chronic present on admission: Poor control. Correctional plan. Adjust insulin as indicated. Patients sugars were significantly elevated on presentation, will monitor sugars carefully and utilize correctional plan aggressively. 3. Hypertension chronic present on admission: Patient is on an ARB and hydrochlorothiazide, will hold acutely overnight until sure blood pressure is stable. Restart in the morning and adjust as indicated. 4. Dehydration and acute present admission: IV fluids 5. Hyponatremia acute present on admission: Secondary to hypovolemia, IV fluids and repeat labs in the morning, additionally patients hyper-glycemia is contributing as well Day 2 patient with headache and most likely viral upper respiratory issues. Continuing antibiotics. Lovenox added issues not moving well today. Fioricet for the headache. AIRAM QUINTANA MD Oct 05, 2016 12:47
[2016-10-05 13:03] VITALS: BP 149/85; PULSE 87; RESP 16; TEMP 99; O2SAT 92
[2016-10-05] MEDS: ENOXAPARIN 40 MG/0.4 ML INJECTION SQ SCH (13:03)
[2016-10-05 15:09] VITALS: BP 118/72; PULSE 90; RESP 16; O2SAT 92
--- NOTE | 2016-10-05 18:35 | NUR ---
Status Patient complained of vomiting, zofran IV given. Sliding scale insulin given. Patient steady on her feet, up on own.
[2016-10-05 20:00] VITALS: BP 124/76; PULSE 89; RESP 18; TEMP 97.6; O2SAT 90
[2016-10-06] VITALS (7 sets, daily range): BP systolic 139–163; BP diastolic 82–91; PULSE 80–91; RESP 18–20; TEMP 97.1–99; O2SAT 92–98
[2016-10-06] MEDS: VANCOMYCIN 1,250 MG in NORMAL SALINE 250 ML IV SCH (02:00)
[2016-10-06] MEDS: NORMAL SALINE 1,000 ML IV SCH ×3 (02:23→15:14)
--- NOTE | 2016-10-06 03:47 | NUR ---
LABS IV VANCO WAS HELD PER THE PHARMACIST. VANCO LEVEL IS ELEVATED.
[2016-10-06] MEDS: PIPERACILLIN/TAZOBACTAM 3.375 G in NORMAL SALINE 100 ML IV SCH ×4 (03:52→21:27)
[2016-10-06] MEDS: INSULIN REGULAR 100 UNIT/ML SQ PRN ×3 (06:38→21:28)
--- NOTE | 2016-10-06 06:44 | NUR ---
SUMMARY PT HAS NO CHANGES. SLEPT WELL THIS SHIFT. A&O X 3. AMBULATE SELF TO THE BATHROOM. CONTINUES ON IV FLUIDS THAT HE TOLERATES WELL. NO PAIN THIS SHIFT. CALL LIGHT WITHIN REACH. WAS GIVEN SS INSULIN FOR HIGH BG. WILL CONTINUE TO MONITOR.
[2016-10-06] MEDS: ENOXAPARIN 40 MG/0.4 ML INJECTION SQ SCH (08:17)
[2016-10-06] MEDS: ONDANSETRON 4mg/2ml INJECTION IV PRN ×2 (08:24→19:54)
--- NOTE | 2016-10-06 09:08 | NUR ---
DM screen Diabetic foot ulcer, no recent A1c; no DM home meds; no DM care behaviors; pt states she has had DM x 10 y Diet: [id number]; Previous day and this morning breakfast emesis; pt states she doesn't like the smell of the bedding or the taste of the Styrofoam cup, and thinks that perhaps her IV meds are making her sick to her stomach. States that saltine crackers are causing her hands to swell. RD suggested drinking regular [place] slowly, but pt did not like taste. RD brought orange juice, and suggested the pt drink it very slowly. Also suggested that if she feels hungry, she should order toast or crackers and eat it very slowly. RD stated that first goal to recovery is regular food intake, which helps with BG control, which aids healing. RD will follow x [phone]
[2016-10-06 11:06] LABS: CREATININE 2.3 MG/DL (0.7-1.2)
--- NOTE | 2016-10-06 11:17 | NUR ---
CM CM VISITED PT. CM EXPLAINED ROLE AND PROVIDED CONTACT INFORMATION. PT PLANS TO RETURN HOME TO SPOUSE AND SON. A1C HAS BEEN ORDERED DUE TO PRIMARY PROVIDER NOT HAVING ANY RECENT LAB. PT DENIES NEEDS. PT IS AWARE TO CONTACT CM IF NEEDS ARISE.
--- NOTE | 2016-10-06 14:01 | NUR ---
VANCOMYCIN CONSULT: Vancomycin Trough = 43.7 mcg/ml. Today's SCr = 2.3 mg/dl. Will HOLD Vancomycin for now. We will draw random vanco level on 10/07 and creatinine to determine future dosing. Will continue to monitor and make adjustments accordingly. Thank you.
--- NOTE | 2016-10-06 15:23 | PDWOUND ---
Wound Documentation Wound Management Wound : Location Modifier: Right Wound Location: Foot Wound Type: Other (diabetic ulcer) Wound Duration: two weeks Wound Dressing Status: FOUND: Dry & Intact Wound Drainage Amount: None Wound Drainage Odor: None/Absent Wound General Appearance: FOUND Other (callous and necrosis), FOUND Reddened Periwound Description: Bright Red Comments Consult Dr Chowdhury, pt has a large non stageable ulcer to the 1st met head. Discussed reason for consult, discussed needing to keep BS undercontrol, Pt needing to be off loaded and what could lay ahead. Dr Chowdhury contacted. HALEIGH DAMON RN Oct 06, 2016 15:22
--- NOTE | 2016-10-06 16:23 | CONSPD ---
Consultation Info Date DATE: 10/06/16 TIME: 16:17 Reason for Consultation: Right 1st Metatarsal Head Diabetic Foot Ulcer Impression/Recommendation Impression/Recommendation: (1) Non-healing ulcer of foot Onset Date: ~ 09/20/2016 Status: Acute Qualifiers: Laterality: right Non-pressure ulcer stage: unspecified non-pressure ulcer stage Qualified Codes: L97.519 - Non-pressure chronic ulcer of other part of right foot with unspecified severity Recommendation: MRI of right foot to rule out osteomyeltis and surgical debridement tomorrow Ortho HPI HPI Elements Location: FOUND foot (right) Injury: No Pain: FOUND stabbing, FOUND sharp Onset: Gradual Severity: FOUND moderate Duration: FOUND other (was first noticed 2 weeks ago) Previous Surgery: No Previous Injury: No Treatments Tried: FOUND other (outpatient clindamycine) Review of Systems Constitutional: REPORTS: see HPI Cardiovascular DENIES: chest pain Pulmonary Respiratory: DENIES: dyspnea GI Upper Abdomen: nausea, vomiting Musculoskeletal General: see HPI Integumentary Skin: see HPI Neurological Comments decreased sensation to feet All Other Systems Reviewed (remainder of 10-point ROS Neg.) Past Medical History Adult Problem List Updates DM2, Hypertension, Depression Surgical History Patient's Surgical History: ?exploratory surgery in her 20's Current Medications Clindamycin HCl (Clindamycin HCl) 300 Mg Capsule, 300 MG PO QID Supervising physician Dr. Victor Manuel Kennedy Gis Technician [facility] [address] [phone] Last Taken: start 09/17/16 on 10/03/16 1400 Naproxen Sodium (Aleve) 220 Mg Tablet, 440 MG PO BIDWM PRN for PAIN, (Reported) Last Taken: Unknown Dose on 10/03/16 1400 Valsartan/Hydrochlorothiazide ( Valsartan-Hctz 160-25 mg Tab) 1 Each Tablet, 1 TAB PO DAILY, (Reported) Last Taken: Unknown Dose on 10/03/16 0800 Venlafaxine HCl (Venlafaxine HCl ER ) 75 Mg Cap.er.24h, 75 MG PO DAILY, (Reported) Last Taken: Unknown Dose on 10/03/16 0800 Allergies Allergies: Coded Allergies: No Known Allergies (Unverified , 09/17/16) Family History Family History: non contributory Vaccines NO NO No YES YES Social History Second Hand Exposure: No Substance Use Type: does not use Alcohol Intake: none Marital Status: Sexuality: male partner Household Members: spouse Advance Directives: Yes DPOA for Healthcare Only Physical Exam General General: well nourished, well developed, no acute distress Respiratory FOUND non-labored Cardiovascular FOUND pedal pulses intact Capillary Refill: <2 sec Integumentary Integumentary Comments Unstageable diabetic foot ulceration over 1st MT head. Large black/brown necrotic skin with surrounding erythema. Bloody drainage from edges of ulcer. Laboratory Laboratory Tests Test 10/05/16 17:04 10/05/16 21:08 10/06/16 01:30 10/06/16 06:16 Glucometer 238mg/dL 263mg/dL 219mg/dL Creatinine 2.3MG/DL Glomerular Filtration Rate Calc 22 Vancomycin Level Trough 43.77UG/ML Test 10/06/16 11:00 10/06/16 11:25 Hemoglobin A1c > 15.0% Glucometer 223mg/dL ELIDA PAYNE MD Oct 06, 2016 16:22
--- NOTE | 2016-10-06 17:00 | NUR ---
DIABETES EDUCATION Met with patient regarding uncontrolled diabetes. A1c was > 15% on 10/06/16. Reviewed significance of average blood sugar approximately 400 mg/dl or greater over the past 3 months on healing. Reports meter was lost about 1 year ago. Denies being prescribed blood sugar medication. Discussed blood sugar goals according to [place] [employer] - before meals 80-130 mg/dl and 1-2 hours after meals less than 180 mg/dl. A1c goal is 7% unless otherwise stated by physician. Discussed expected effects of illness and infection on blood sugar levels. Will return at 0930 on 10/07/16 to instruct on self-blood glucose monitoring.
--- NOTE | 2016-10-06 19:47 | NUR ---
SHIFT SUMMARY LACK OF APPETITE. STRUGGLED WITH NAUSEA AND VOMITING. PRN ZOFRAN GIVEN.
--- NOTE | 2016-10-06 19:54 | NUR ---
nausea back from MRI per w/c. States nausea. Zofran given
--- NOTE | 2016-10-06 21:25 | NUR ---
comfort states nausea is diminished, drinking Sonic drink brought in by family
--- NOTE | 2016-10-06 21:29 | PNPDOC ---
Subjective Date DATE: 10/06/16 TIME: 21:14 Subjective Patient no longer having a headache after yesterday. Apparently Fioricet was helpful for this. She is still having some nausea but not having any vomiting this time. She still feels acutely unwell. No foot pain however Objective Vital Signs Vital signs Vital Signs Date Time Temp Pulse Resp B/P Pulse Ox O2 Delivery O2 Flow Rate FiO2 10/06/16 20:26 97.9 90 20 163/91 98 Room Air Telemetry Rhythm: Sinus Rhythm Height (Feet): 5 Height (Inches): 5.00 Weight (Kilograms): 75.900 General General Appearance: Alert, Orientated x 3, Cooperative Eyes (Brief) Eyes: FOUND: EOMI, PERRL, NOT FOUND: scleral icterus Neck (Brief) Neck: NOT FOUND: JVD, nuchal rigidity Cardiovascular (Brief) Cardiac: FOUND: regular rate, regular rhythm Capillary Refill: <2 sec Abdomen (Brief) Abdominal: FOUND: BS normo active x4, soft Extremities (Brief) Extremity : Side: Right Extremity: foot Comments Wound now bandaged Neurologic (Brief) Neurological: FOUND: cranial 2-12 intact, motor, sensory Psychiatric (Brief) Psychiatric: FOUND: alert, normal affect, oriented Laboratory Laboratory Laboratory Tests 10/06/16 01:30 Radiology MRI foot has been ordered. Final results pending but I do not see any bony invasion of the infection Assessment & Plan Problems: (1) Non-healing ulcer of foot Onset Date: ~ 09/20/2016 Status: Acute Qualifiers: Laterality: right Non-pressure ulcer stage: unspecified non-pressure ulcer stage Qualified Codes: L97.519 - Non-pressure chronic ulcer of other part of right foot with unspecified severity Assessment & Plan: Continuing on Zosyn. Vancomycin is on hold due to significant climb in creatinine. Considering switch off of vancomycin altogether as other medications may be an option. Patient has failed clindamycin but if MRSA coverage is required Bactrim, Teflaro, doxycycline or rifampin may be a better option (2) Diabetes mellitus type II, uncontrolled Status: Chronic Qualifiers: Diabetes mellitus complication status: with skin complications Diabetes mellitus complication detail: with foot ulcer Assessment & Plan: With medium dose sliding scale patient is 170s to 230s. As her hemoglobin A-1 C is was greater than 15, is hard to tell if some of her malaise is not from this slowly normalizing glucose level. I'm inclined to think it more a side effect of vancomycin but as yet I am uncertain (3) Hyperglycemia Status: Acute Assessment & Plan: Slowly improving. Patient's hemoglobin A-1 C is greater than 15 Code Status Full Code Hospital Course Summary Disclaimer The hospital course summary below is not to be considered part of the above Progress Note. Hospital Course Summary 1. Diabetic foot ulcer acute present on admission: This is a significant wound at this point in time. Well start vancomycin, Zosyn, cultures were done by the ER, plain x-ray was reassuring for obvious osteomyelitis, consider MRI of the foot to better define the possibility of osteomyelitis. A wound care consult is indicated. Potential surgical evaluation would be indicated. There is drainage from the wound 2. Type 2 diabetes mellitus chronic present on admission: Poor control. Correctional plan. Adjust insulin as indicated. Patients sugars were significantly elevated on presentation, will monitor sugars carefully and utilize correctional plan aggressively. 3. Hypertension chronic present on admission: Patient is on an ARB and hydrochlorothiazide, will hold acutely overnight until sure blood pressure is stable. Restart in the morning and adjust as indicated. 4. Dehydration and acute present admission: IV fluids 5. Hyponatremia acute present on admission: Secondary to hypovolemia, IV fluids and repeat labs in the morning, additionally patients hyper-glycemia is contributing as well Day 2 patient with headache and most likely viral upper respiratory issues. Continuing antibiotics. Lovenox added issues not moving well today. Fioricet for the headache. AIRAM QUINTANA MD Oct 06, 2016 21:17
--- NOTE | 2016-10-06 22:30 | NUR ---
sherrie arshad. of loose brown stool
[2016-10-07] VITALS (22 sets, daily range): BP systolic 89–177; BP diastolic 57–91; PULSE 78–93; RESP 15–21; TEMP 96.2–99.1; O2SAT 91–98
[2016-10-07] MEDS: PIPERACILLIN/TAZOBACTAM 3.375 G in NORMAL SALINE 100 ML IV SCH ×2 (03:09→09:17)
[2016-10-07] MEDS: NORMAL SALINE 1,000 ML IV SCH (03:10)
--- NOTE | 2016-10-07 04:00 | NUR ---
elim inc. of loose stool. Assisted to BR, also voids
[2016-10-07 05:09] LABS: BASOPHILS % (AUTO) 0.3 % (0-2); EOSINOPHILS % (AUTO) 0.5 % (0-4); HCT - HEMATOCRIT 35.2 % (36-46); HGB - HEMOGLOBIN 11.9 GM/DL (12-16); IMMATURE GRANULOCYTE # (AUTO) 0.01 T/MM3 (0.00-0.03); IMMATURE GRANULOCYTE % (AUTO) 0.1 % (0.0-0.5); LYMPHOCYTES # (AUTO) 1.8 T/MM3 (1-4.8); LYMPHOCYTES % (AUTO) 24.5 % (23-45); MEAN CORPUSCULAR HGB 31.5 UUG (26-34); MEAN CORPUSCULAR HGB CONC(MCHC 33.8 GM/DL (31-37); MEAN CORPUSCULAR VOLUME 93.1 UM3 (80-100); MEAN PLATELET VOLUME 9.3 UM3 (9.4-12.4); MONOCYTES # (AUTO) 0.7 T/MM3 (0-0.8); MONOCYTES % (AUTO) 9.4 % (0-9.0); NEUTROPHILS #(AUTO)-ABSOLUTE 4.8 T/MM3 (1.8-7.7); NEUTROPHILS % (AUTO) 65.2 % (33-66); RED BLOOD COUNT 3.78 M/MM3 (4.00-5.20); WBC - WHITE BLOOD COUNT 7.3 T/MM3 (4.5-11.0)
[2016-10-07 05:18] LABS: ALBUMIN 2.7 G/DL (3.5-5.0); ALBUMIN/GLOBULIN RATIO 0.9 RATIO (1.1-2.2); ALKALINE PHOSPHATASE 67 U/L (38-126); ALT (SGPT) 33 U/L (9-52); ANION GAP 10 MEQ/L (5-15); AST (SGOT) 26 U/L (14-36); BUN/CREATININE RATIO 6 RATIO (6-26); CALCIUM 8.1 MG/DL (8.4-10.2); CHLORIDE 109 MEQ/L (98-107); CO2 - CARBON DIOXIDE 22 MEQ/L (22-30); GLOMERULAR FILTRATION RATE 16; GLUCOSE 162 MG/DL (65-110); POTASSIUM 4.2 MEQ/L (3.6-5); SODIUM 141 MEQ/L (134-144); TOTAL PROTEIN 5.8 G/DL (6.3-8.2)
--- NOTE | 2016-10-07 06:00 | NUR ---
comfort awakened for BGM check, requests Zofran for nausea
[2016-10-07] MEDS: ONDANSETRON 4mg/2ml INJECTION IV PRN ×3 (06:02→20:03)
[2016-10-07] MEDS: INSULIN REGULAR 100 UNIT/ML SQ PRN ×3 (06:03→21:28)
--- NOTE | 2016-10-07 07:55 | NUR ---
WEIGHT BED RE-ZEROED AND WEIGHT CHECKED X2. WT CHARTED IS ACCURATE AFTER RE-ZEROED.
--- NOTE | 2016-10-07 09:13 | PNPDOC ---
Subjective Date DATE: 10/05/16 TIME: 12:53 Subjective C/o headache and some nausea. Had episodes of vomting overnight reported by nursing. She is feeling altogether unwell Objective Vital Signs Vital signs Vital Signs Date Time Temp Pulse Resp B/P Pulse Ox O2 Delivery O2 Flow Rate FiO2 10/05/16 08:00 99.1 89 16 133/77 95 Room Air Telemetry Rhythm: Sinus Rhythm Height (Feet): 5 Height (Inches): 5.00 Weight (Kilograms): 75.200 Laboratory Laboratory Laboratory Tests 10/03/16 20:32 10/04/16 04:29 Laboratory Tests 10/03/16 20:32 10/04/16 04:29 Assessment & Plan Problems: (1) Non-healing ulcer of foot Onset Date: ~ 09/20/2016 Status: Acute Qualifiers: Laterality: right Non-pressure ulcer stage: unspecified non-pressure ulcer stage Qualified Codes: L97.519 - Non-pressure chronic ulcer of other part of right foot with unspecified severity Assessment & Plan: Patient is on vancomycin and Zosyn. Continue medication at this time. Has failed outpatient clindamycin (2) Diabetes mellitus type II, uncontrolled Status: Chronic Qualifiers: Diabetes mellitus complication status: with skin complications Diabetes mellitus complication detail: with foot ulcer Assessment & Plan: Glucose is still reading rather high I'm inclined to begin a higher sliding scale or perhaps a low dose of Lantus tonight (3) Hyperglycemia Status: Acute Code Status Full Code Hospital Course Summary Disclaimer The hospital course summary below is not to be considered part of the above Progress Note. Hospital Course Summary 1. Diabetic foot ulcer acute present on admission: This is a significant wound at this point in time. Well start vancomycin, Zosyn, cultures were done by the ER, plain x-ray was reassuring for obvious osteomyelitis, consider MRI of the foot to better define the possibility of osteomyelitis. A wound care consult is indicated. Potential surgical evaluation would be indicated. There is drainage from the wound 2. Type 2 diabetes mellitus chronic present on admission: Poor control. Correctional plan. Adjust insulin as indicated. Patients sugars were significantly elevated on presentation, will monitor sugars carefully and utilize correctional plan aggressively. 3. Hypertension chronic present on admission: Patient is on an ARB and hydrochlorothiazide, will hold acutely overnight until sure blood pressure is stable. Restart in the morning and adjust as indicated. 4. Dehydration and acute present admission: IV fluids 5. Hyponatremia acute present on admission: Secondary to hypovolemia, IV fluids and repeat labs in the morning, additionally patients hyper-glycemia is contributing as well Day 2 patient with headache and most likely viral upper respiratory issues. Continuing antibiotics. Lovenox added issues not moving well today. Fioricet for the headache. AIRAM QUINTANA MD Oct 05, 2016 13:28
[2016-10-07] MEDS ORDERED: PROMETHAZINE 25 MG INJECTION IV PRN (09:15)
--- NOTE | 2016-10-07 09:38 | DI ---
Indication: ITS.REASON: diabetic foot ulceration evaluate for osteo PROCEDURE: MRI FOOT RIGHT W/O CONTRAST: Encounter: Initial Comparison: Right foot radiographs dated October 03, 2016 Technique: Multiplanar multisequence MR imaging of the right foot was performed without contrast. Findings: No acute fracture identified. There is suggestion of mild edema within the medial sesamoid bone of the first metatarsal. This is immediately overlying the site of soft tissue defect and skin induration. Bone marrow signal intensity is otherwise within normal limits. There is mild to moderate degenerative change at the first metatarsophalangeal joint. The Lisfranc ligament is intact. Edema within the intrinsic foot musculature, a common finding in diabetics. No osseous erosions identified. No focal fluid collection or abscess appreciated. No abnormal T1 hypointensity seen within the first metatarsal head area of concern. Impression: Edema within the first metatarsal medial sesamoid bone underlying a skin wound could represent osteomyelitis. Nuclear medicine three-phase bone scan may be helpful for further evaluation. .
--- NOTE | 2016-10-07 10:00 | NUR ---
DIABETES EDUCATION Provided and demonstrated use Contour Next EZ meter. Information on ordering strips at reduced cost placed in room. Reviewed log sheet, blood sugar goals and signs/ symptoms and treatment of hyper and hypoglycemia. [employer] handout given. Reported symptoms of hyperglycemia: tingling in hands and feet, polydipsia and polyuria. Denies recognized hypoglycemia. Will return on 10/08/16 for meter practice and possible injection teaching. Plan to work on basic skills during hospitalization then recommend follow-up in [facility]. Contact info provided. Patient will need a prescription for Contour Next blood glucose strips and Microlet lancets at discharge. CDE may be reached at [phone].
[2016-10-07] MEDS ORDERED: PIPERACILLIN/TAZOBACTAM 2.25 G in NORMAL SALINE 100 ML IV SCH (10:15)
--- NOTE | 2016-10-07 10:20 | NUR ---
RENAL DOSING: (Zosym, Vancomycin) Today's SCr = 3.0 mg/dl. Calculated CrCl = 21 ml/min. The patient's renal function has declined. As patient is on both Zosyn and Vancomycin one can assume so renal dysfunction from both medications. I will decrease the Zosyn to 2.25 g iv every 6 hours as of now. Vancomycin is being dosed per Vancomyciin Dosing Protocol. The pharmacy will continue to review the renal function and adjust the medications accordingly. Thank you, Carlos Enrique Ruiz, [facility]
--- NOTE | 2016-10-07 10:43 | NUR ---
VANCOMYCIN CONSULT: Vancomycin Random = 31.2 mcg/ml. Today's SCr = 3.0 mg/dl. Will keep vancomycin on hold until trough is in the 15-20mcg/ml range. Will continue to monitor and make adjustments accordingly. Thank you.
--- NOTE | 2016-10-07 12:19 | DI ---
Indication: ITS.REASON: KALPANA PROCEDURE: US RENAL: Encounter: Initial Comparison: None Technique: Grayscale and color Doppler sonographic imaging of both kidneys was performed. FINDINGS: Both kidneys are present with normal cortical thickness and echogenicity. No evidence for collecting system dilatation, contour deforming mass, nephrolithiasis, or abnormal perinephric fluid collection. The right kidney measures 10.8 cm in length, and the left kidney measures 10.6 cm in length. IMPRESSION: Normal renal sonogram. .
--- NOTE | 2016-10-07 13:05 | NUR ---
SURGERY PT SENT WITH SURGERY STAFF FOR PROCEDURE AT THIS TIME. CONSENT SIGNED.
--- NOTE | 2016-10-07 13:32 | PNPDOC ---
VIKAS SQUIRES V [employer] 10/07/16 1320: Subjective Date DATE: 10/07/16 TIME: 13:13 Subjective Rebecca is seen this afternoon in follow up while she is resting in bed. She describes a "nausea" type of sensation in her abdomen along with a heightened sense of smell. She describes a smell the room as well as the smell of medications and sheets that causes more nausea. She has had difficulty over the last several days with intermittent nausea, accompanied with constipation versus diarrhea. She is currently nothing by mouth as she is planned for surgical debridement of the foot wound later today. Denies abdominal pain. Pipe Stripper continues to increase, James cath placed this morning. Blood pressure 153/79. Objective Vital Signs Vital signs Vital Signs Date Time Temp Pulse Resp B/P Pulse Ox O2 Delivery O2 Flow Rate FiO2 10/07/16 12:16 96.2 81 16 153/79 98 Room Air Telemetry Rhythm: Sinus Rhythm Height (Feet): 5 Height (Inches): 5.00 Weight (Kilograms): 75.200 General General Appearance: Alert, Orientated x 3, Cooperative, No Acute Distress Eyes (Brief) Eyes: FOUND: EOMI ENMT (Brief) ENMT: FOUND: mucosa moist, normal dentition, NOT FOUND: pharnyx erythema Neck (Brief) Neck: FOUND: midline, NOT FOUND: adenopathy, carotid bruits, tracheal deviation Respiratory (Brief) Respiratory: FOUND: clear all house, equal bilaterally, NOT FOUND: wheezes Cardiovascular (Brief) Cardiac: FOUND: regular rate, regular rhythm, NOT FOUND: murmur, pedal edema Capillary Refill: <2 sec Abdomen (Brief) Abdominal: FOUND: BS normo active x4, soft, NOT FOUND: distended, tender Extremities (Brief) Extremity : Side: Right Extremity: foot Comments Right foot wound Lymphatic (Brief) Lymphatic: NOT FOUND: adenopathy Musculoskeletal (Brief) Musculoskeletal: NOT FOUND: tenderness Integumentary (Brief) Integumentary: FOUND: dry, pink, warm Neurologic (Brief) Neurological: FOUND: cranial 2-12 intact Psychiatric (Brief) Psychiatric: FOUND: alert, attentive, normal affect, oriented Laboratory Laboratory Laboratory Tests 10/06/16 01:30 10/07/16 04:24 Laboratory Tests 10/07/16 04:24 Assessment & Plan Problems: (1) Non-healing ulcer of foot Onset Date: ~ 09/20/2016 Status: Acute Qualifiers: Laterality: right Non-pressure ulcer stage: unspecified non-pressure ulcer stage Qualified Codes: L97.519 - Non-pressure chronic ulcer of other part of right foot with unspecified severity Assessment & Plan: Nation has to week history of foot wound without drainage. There is low likelihood of osteomyelitis. Patient on Zosyn and vancomycin (2) Diabetes mellitus type II, uncontrolled Status: Chronic Qualifiers: Diabetes mellitus complication status: with skin complications Diabetes mellitus complication detail: with foot ulcer Assessment & Plan: Hemoglobin A-1 C pending. Likelihood of very poor control (3) Hyperglycemia Status: Acute Assessment & Plan: Trending down with insulin (4) HTN (hypertension) Status: Chronic Plan/Intensity of Service 10/07/16 Creatinine continues to rise this morning up to 3.0. James catheter was placed this morning Renal sonogram is normal without evidence of mass, obstruction or hydronephrosis Vancomycin was stopped given continued rise in creatinine. Patient continues on Zosyn. Will need to evaluate antibiotic therapy moving forward. Given that we may need to cover for MRSA. Possible options include Teflaro, doxycycline. Will consult Dr Huang and ask her to see patient tomorrow for recommendations. Given increase loose stools a C-Diff stool sample was ordered Zofran and Phenergan as needed for nausea Continue to Monitor blood sugars, Humulin sliding scale Planning for surgical debridement of foot wound today by Dr Chowdhury Lovelulú SQ daily for DVT prophylaxis Will recheck CBC and BMP tomorrow to follow blood counts, renal function and electrolytes. Code Status Full Code Hospital Course Summary Disclaimer The hospital course summary below is not to be considered part of the above Progress Note. Hospital Course Summary 1. Diabetic foot ulcer acute present on admission: This is a significant wound at this point in time. Well start vancomycin, Zosyn, cultures were done by the ER, plain x-ray was reassuring for obvious osteomyelitis, consider MRI of the foot to better define the possibility of osteomyelitis. A wound care consult is indicated. Potential surgical evaluation would be indicated. There is drainage from the wound 2. Type 2 diabetes mellitus chronic present on admission: Poor control. Correctional plan. Adjust insulin as indicated. Patients sugars were significantly elevated on presentation, will monitor sugars carefully and utilize correctional plan aggressively. 3. Hypertension chronic present on admission: Patient is on an ARB and hydrochlorothiazide, will hold acutely overnight until sure blood pressure is stable. Restart in the morning and adjust as indicated. 4. Dehydration and acute present admission: IV fluids 5. Hyponatremia acute present on admission: Secondary to hypovolemia, IV fluids and repeat labs in the morning, additionally patients hyper-glycemia is contributing as well Day 2 patient with headache and most likely viral upper respiratory issues. Continuing antibiotics. Lovenox added issues not moving well today. Fioricet for the headache. 10/07/16 Creatinine continues to rise this morning up to 3.0. James catheter was placed this morning Renal sonogram is normal without evidence of mass, obstruction or hydronephrosis Vancomycin was stopped given continued rise in creatinine. Patient continues on Zosyn. Will need to evaluate antibiotic therapy moving forward. Given that we may need to cover for MRSA. Possible options include Teflaro, doxycycline. Will consult Dr Huang and ask her to see patient tomorrow for recommendations. Given increase loose stools a C-Diff stool sample was ordered Zofran and Phenergan as needed for nausea Continue to Monitor blood sugars, Humulin sliding scale Planning for surgical debridement of foot wound today by Dr Trenton Watson SQ daily for DVT prophylaxis Will recheck CBC and BMP tomorrow to follow blood counts, renal function and electrolytes. DANIA HUERTAS MD 10/07/16 1728: Assessment & Plan Plan/Intensity of Service Have independently interviewed and examined pt. Chart reviewed. Case discussed with nursing, CM, and my [employer]. Care plan developed with my supervision; agree with above. Resting this evening post surgery. Notes minimal pain and discomfort to foot. Still with nausea. No ab pain. Passing some flatus. Breathing well. No chest pain. Lungs: decreased, no distress CV: regular AB: soft nt/nd, BS decreased but present MSE: awake alert, appears tired Renal US - no hydronephrosis Plan: Vanco stopped. James placed secondary to KALPANA. Continue NS at 100cc/hr. Will give Lasix 40mg to stimulate urinary output. Consult with Dr Huang for Antimicrobial recommendations and duration. Recheck BMP in am to monitor renal status. Recheck CBC in am to monitor blood counts. DVT Prophylaxis: SCD'S, Lovenox VIKAS SQUIRES APRN Oct 07, 2016 13:20 DANIA HUERTAS MD Oct 07, 2016 17:28
--- NOTE | 2016-10-07 14:09 | ANESPREOP ---
Anesthesia Record Date and Time DATE: 10/07/16 TIME: 14:06 Pre-Op Diagnosis foot ulcer Proposed Surgical Procedure i/d surgical debridement foot ulcer NPO since: 0500 Allergies: Coded Allergies: No Known Allergies (Unverified , 09/17/16) Ht/Wt/BMI Height: 5 ' 5.00 " Weight: 78.500 kg BMI: 27.1 kg/m2 Vital Signs Date Time Temp Pulse Resp B/P Pulse Ox O2 Delivery O2 Flow Rate FiO2 10/07/16 13:40 98.0 88 20 177/91 97 Room Air Medications Inpatient Medications Current Medications Medications (Trade) Dose Ordered Sig/Ramon Start Time Stop Time Status Last Admin Dose Admin Sodium Chloride (Normal Saline IV) 1,000 ml @ 100 mls/hr Q10H 10/03/16 21:17 10/07/16 03:10 100 MLS/HR Acetaminophen/ Hydrocodone Bitart (Boone 5/325) 1 tab Q6H PRN 10/03/16 21:30 10/04/16 21:21 1 TAB Hydromorphone HCl (Dilaudid) 0.5 mg Q2H PRN 10/03/16 21:30 10/05/16 13:02 0.5 MG Ondansetron HCl (Zofran) 4 mg Q6H PRN 10/03/16 21:30 10/07/16 13:05 4 MG Glucose (Glutose 15) 37.5 g PRN PRN 10/03/16 21:30 Dextrose (D50w) 25 ml PRN PRN 10/03/16 21:30 Insulin Human Regular SS PRN 10/03/16 21:30 10/07/16 12:15 2 UNIT Piperacillin Sod/ Tazobactam Sod 3.375 g/Sodium Chloride 100 ml @ 200 mls/hr Q6HR 10/04/16 03:00 10/04/16 06:59 DC 10/04/16 04:58 200 MLS/HR Vancomycin HCl 1000 mg/Sodium Chloride 250 ml @ 250 mls/hr Q12H 10/03/16 21:30 10/03/16 22:45 DC Piperacillin Sod/ Tazobactam Sod 3.38 g/Sodium Chloride 100 ml @ 200 mls/hr Q6HR 10/04/16 09:00 10/04/16 09:00 DC Vancomycin HCl 1250 mg/Sodium Chloride 250 ml @ 200 mls/hr Q8H 10/04/16 10:00 Future Hold 10/05/16 17:28 200 MLS/HR Piperacillin Sod/ Tazobactam Sod/ Sodium Chloride (Zosyn/NS) 100 ml @ 200 mls/hr Q6HR 10/04/16 11:00 10/07/16 10:04 DC 10/07/16 09:17 200 MLS/HR Docusate Sodium (Colace) 100 mg BID PRN 10/04/16 14:00 10/04/16 14:02 100 MG Miscellaneous Medication (May use PRN orders) 1 PRN PRN 10/04/16 14:00 Acetaminophen/ Butalbital/ Caffeine (Fioricet) 1 tab Q4HR PRN 10/05/16 12:15 Enoxaparin Sodium (Lovenox) 40 mg DAILY 10/05/16 12:15 10/06/16 08:17 40 MG Promethazine HCl 25 mg 25 mg Q6H PRN 10/07/16 09:15 Piperacillin Sod/ Tazobactam Sod 2.25 g/Sodium Chloride 100 ml @ 200 mls/hr Q6H 10/07/16 10:15 Cancel Piperacillin Sod/ Tazobactam Sod/ Sodium Chloride (Zosyn/NS) 100 ml @ 200 mls/hr Q6H 10/07/16 15:00 Clindamycin HCl (Clindamycin HCl) 300 Mg Capsule, 300 MG PO QID Supervising physician Dr. Victor Manuel Kennedy [employer] [facility] [address] [facility] [phone] Last Taken: on 10/03/16 1400 Naproxen Sodium (Aleve) 220 Mg Tablet, 440 MG PO BIDWM PRN for PAIN, (Reported) Last Taken: on 10/03/16 1400 Valsartan/Hydrochlorothiazide (Valsartan-Hctz 160-25 mg Tab) 1 Each Tablet, 1 TAB PO DAILY, (Reported) Last Taken: on 10/03/16 0800 Venlafaxine HCl (Venlafaxine HCl ER) 75 Mg Cap.er.24h, 75 MG PO DAILY, (Reported) Last Taken: on 10/03/16 0800 Currently on Beta Tri: No Medical/Surgical History Anesthesia PMH: Reports: *Diabetes, *Hypertension, Depression, Denies: *[place], Asthma, Blood Transfusion Reac, CHF, COPD, CVA/Stroke/TIA, Cancer, , Seizures Smoking Status: Never smoker Has pt. smoked today?: No Use Chewing Tobacco?: No Second Hand Exposure: No Substance Use Type: does not use Alcohol Intake: none Past Surgical History Orthopedic Surgeries: No Abdominal Surgeries: Yes - EXPLORATORY SURGERY Genitourinary Surgeries: No Cardiac Surgeries: No Endocrine Surgeries: No Reproductive Surgeries: Yes - C SECTION Neurological Surgeries: No Ear Surgeries: No Nose Surgeries: No Throat Surgeries: No Other Surgeries: No Anesthesia Adverse Reactions: FOUND none Family Hx of Anesthesia Advers: none Hx of Motion Sickness: No Pertinent Findings Laboratory Tests 10/07/16 04:24 EKG Rhythm: Sinus Rhythm Physical Exam Respiratory: Lungs clear Cardiovascular: FOUND Regular rate, rhythm, FOUND No murmur Airway Assessment Mallampati Score: II TMD: 3 Fingerbreadths Neck Extension: Good Teeth: Chipped Teeth/Crowns Overall Assessment: No Airway Concerns ASA: 3 Plan Anesthesia Plan: TIVA, LMA Discussion Discussed risks/options/alternatives of anesthesia and questions answered. Patient consents. Nursing pain assessment noted. Attestation Statement Prior to the delivery of any anesthetic medication, I examined the patient, developed the plan, obtained the patient's consent and discussed the risk and benefits of the procedure with the patient/guardian. SENA GRULLON CRNA Oct 07, 2016 14:09
[2016-10-07] MEDS ORDERED: PROPOFOL 500mg 100 ML IV ONE (14:22)
[2016-10-07] MEDS ORDERED: LIDOCAINE JELLY 2% 30ml TUBE ONE (14:31)
[2016-10-07] MEDS ORDERED: CEFAZOLIN 1 GRAM INJECTION ONE (14:37)
[2016-10-07] MEDS ORDERED: FENTANYL 100mcg/2ml INJECTION ONE (14:45)
--- NOTE | 2016-10-07 15:07 | PDOPERATE ---
Operative Report Date of Operation 10/07/16 Side: Right Preoperative Diagnosis: other (right foot diabetic foot ulcer) Postoperative Diagnosis Same as preoperative diagnosis. Operation/Procedure: other (surgical debridement of right foot diabetic foot ulcer with intraoperative cultures) Surgeon Ramsey Chowdhury MD [employer] Architect TERA Grace Complications None. Anesthesia Plan: LMA Estimated Blood Loss See Anesthesia Record. Fluids Please See Anesthesia Record. Description of Operation Ms. Deshawn Lopez and her right foot were identified and marked in the the preoperative holding area. She was then brought back to the operating suite and proper anesthesia was administered. She was then positioned supine on the operating table. The right lower extremity was then prepped and draped in my normal sterile fashion. Timeout was performed with all operating room personnel. I begun by measuring the wound which measured 2.0 x 2.5 cm with a raised brown eschar. Plantar to the first metatarsal head. There was surrounding erythema. Again sharp debridement of the necrotic tissue after piercing through the eschar there was fadi material that was expressed and cultures were taken of this. Underneath the eschar was a friable and gelatinous tissue which was necrotic. I did send some of this tissue for culture as well. After all necrotic tissue was removed I was down to the fascia over the sesamoid bones. After debridement the measurements were 2.3 x 2.7 x 0.7 cm The fascia itself appeared to be in good condition with no obvious necrosis. The wound was thoroughly irrigated with normal saline. Some dried skin around the ulcer was also removed. The ulcer was then dressed with 4 x 4's Kerlix and an Jonny wrap. The drapes were then removed and she was allowed to awake from general anesthesia and taken to the recovery room in the care of anesthesia she tolerated procedure well there were no complications. ELIDA CHOWDHURY MD Oct 07, 2016 15:06
--- NOTE | 2016-10-07 15:45 | NUR ---
RETURN PT RETURNED FROM SURGERY AT THIS TIME. DENIES PAIN. DRESSING TO THE RIGHT FOOT C/D/I.
[2016-10-07] MEDS: PIPERACILLIN/TAZOBACTAM 2.25 G in NORMAL SALINE 100 ML IV SCH ×2 (15:50→21:28)
[2016-10-07] MEDS: ENOXAPARIN 40 MG/0.4 ML INJECTION SQ SCH (15:53)
--- NOTE | 2016-10-07 16:07 | ANESPO ---
Post-Op Note Date 10/07/16 Time: 16:05 Status Pt Participated in Evaluation: Pt participated in person Vital Signs Date Time Temp Pulse Resp B/P Pulse Ox O2 Delivery O2 Flow Rate FiO2 10/07/16 15:49 96.3 88 16 136/78 91 Room Air 10/07/16 15:05 5.00 Respiratory Function: Airway patent, Regular respirations Cardiovascular Function: Regular pulse Mental Status: Alert/oriented Pain Level Intensity: 0 Unable to Assess Pain Due To: Pt Sleeping Hydration: Taking po fluids Complications during Recovery None apparent Follow-Up Instructions Instructions Per Surgeon SENA GRULLON CRNA Oct 07, 2016 16:06
[2016-10-07] MEDS ORDERED: FUROSEMIDE 40 MG/4 ML INJECTION IV ONE (17:15)
--- NOTE | 2016-10-07 18:54 | NUR ---
STATUS PT IS A&OX3. PT UP WITH A STANDBY ASSIST. CHRISTENSEN WAS PLACED AFTER NOTIFYING DR. HUERTAS OF VOID AND BLADDER SCAN RESULTS. SCD'S PLACED PER DR. HUERTAS'S ORDERS. PT ON RA. HAS DENIED PAIN TODAY. PRN'S GIVEN FOR NAUSEA NEEDED. CALLS FOR NEEDS. DRESSING TO THE RIGHT FOOT IS C/D/I.
--- NOTE | 2016-10-07 20:05 | NUR ---
comfort denies pain. Requests Zofran for continued nausea
[2016-10-07 21:05] LABS: C. DIFFICILE TOXIN B NEGATIVE (NEGATIVE)
[2016-10-08] VITALS: BP 138/77; PULSE 95; RESP 15; TEMP 98.2; O2SAT 95
[2016-10-08] MEDS: NORMAL SALINE 1,000 ML IV SCH ×3 (00:53→12:16)
[2016-10-08] MEDS: PIPERACILLIN/TAZOBACTAM 2.25 G in NORMAL SALINE 100 ML IV SCH ×3 (03:01→10:31)
[2016-10-08 05:08] VITALS: BP 136/78; PULSE 87; RESP 16; TEMP 97.5; O2SAT 92
[2016-10-08] MEDS: INSULIN REGULAR 100 UNIT/ML SQ PRN ×4 (06:03→20:13)
--- NOTE | 2016-10-08 06:26 | NUR ---
shift status sleeps much of night, repositions self. Inc. of loose stool x 3 tonight. Taking sips of liquid, emesis this a.m.
[2016-10-08 06:57] LABS: BASOPHILS % (AUTO) 0.3 % (0-2); EOSINOPHILS % (AUTO) 0.3 % (0-4); HCT - HEMATOCRIT 37.2 % (36-46); HGB - HEMOGLOBIN 12.4 GM/DL (12-16); IMMATURE GRANULOCYTE # (AUTO) 0.01 T/MM3 (0.00-0.03); IMMATURE GRANULOCYTE % (AUTO) 0.1 % (0.0-0.5); LYMPHOCYTES # (AUTO) 1.3 T/MM3 (1-4.8); LYMPHOCYTES % (AUTO) 16.4 % (23-45); MEAN CORPUSCULAR HGB 31.2 UUG (26-34); MEAN CORPUSCULAR HGB CONC(MCHC 33.3 GM/DL (31-37); MEAN CORPUSCULAR VOLUME 93.5 UM3 (80-100); MEAN PLATELET VOLUME 9.1 UM3 (9.4-12.4); MONOCYTES # (AUTO) 0.9 T/MM3 (0-0.8); NEUTROPHILS #(AUTO)-ABSOLUTE 5.7 T/MM3 (1.8-7.7); NEUTROPHILS % (AUTO) 71.9 % (33-66); RED BLOOD COUNT 3.98 M/MM3 (4.00-5.20); WBC - WHITE BLOOD COUNT 7.9 T/MM3 (4.5-11.0)
[2016-10-08 07:03] LABS: CREATININE 3.9 MG/DL (0.7-1.2)
[2016-10-08 07:30] VITALS: BP 150/90; PULSE 87; RESP 16; TEMP 98.3; O2SAT 92
[2016-10-08 07:46] LABS: ANION GAP 16 MEQ/L (5-15); BUN/CREATININE RATIO 6 RATIO (6-26); CALCIUM 8.4 MG/DL (8.4-10.2); CHLORIDE 111 MEQ/L (98-107); CO2 - CARBON DIOXIDE 17 MEQ/L (22-30); CREATININE 3.8 MG/DL (0.7-1.2); GLOMERULAR FILTRATION RATE 12; GLUCOSE 157 MG/DL (65-110); POTASSIUM 3.9 MEQ/L (3.6-5); SODIUM 144 MEQ/L (134-144)
[2016-10-08 08:26] LABS: VANCOMYCIN,RANDOM 26.45 UG/ML (0-40)
[2016-10-08] MEDS: ENOXAPARIN 40 MG/0.4 ML INJECTION SQ SCH (09:53)
[2016-10-08 11:24] VITALS: BP 150/75; PULSE 87; RESP 16; TEMP 96.8; O2SAT 96
--- NOTE | 2016-10-08 11:51 | PNPDOC ---
VIKAS SQUIRES V HALL TENDER 10/08/16 1143: Subjective Date DATE: 10/08/16 TIME: 11:35 Subjective Rebecca is seen today in follow up. She reports having a busy morning. Given that she had to change rooms due to ants in her room. She reports one episode of vomiting following taking in water this morning, however, since then has been able to keep down ice chips, and popsicles. Overall nausea is improved. Denies having abdominal pain or GI complaints. BP 150/75. Objective Vital Signs Vital signs Vital Signs Date Time Temp Pulse Resp B/P Pulse Ox O2 Delivery O2 Flow Rate FiO2 10/08/16 11:24 96.8 87 16 150/75 96 Room Air 10/07/16 15:05 5.00 Telemetry Rhythm: Sinus Rhythm Height (Feet): 5 Height (Inches): 5.00 Weight (Kilograms): 78.500 General General Appearance: Alert, Orientated x 3, Cooperative, No Acute Distress Eyes (Brief) Eyes: FOUND: EOMI ENMT (Brief) ENMT: FOUND: mucosa moist, normal dentition, NOT FOUND: pharnyx erythema Neck (Brief) Neck: FOUND: midline, NOT FOUND: adenopathy, carotid bruits, tracheal deviation Respiratory (Brief) Respiratory: FOUND: clear all house, equal bilaterally, NOT FOUND: wheezes Cardiovascular (Brief) Cardiac: FOUND: regular rate, regular rhythm, NOT FOUND: murmur, pedal edema Capillary Refill: <2 sec Abdomen (Brief) Abdominal: FOUND: BS normo active x4, soft, NOT FOUND: distended, tender Lymphatic (Brief) Lymphatic: NOT FOUND: adenopathy Musculoskeletal (Brief) Musculoskeletal: NOT FOUND: tenderness Integumentary (Brief) Integumentary: FOUND: dry, pink, warm Comments Right foot wound Neurologic (Brief) Neurological: FOUND: cranial 2-12 intact Psychiatric (Brief) Psychiatric: FOUND: alert, attentive, normal affect, oriented Laboratory Laboratory Laboratory Tests 10/07/16 04:24 10/08/16 06:28 Laboratory Tests 10/07/16 04:24 10/08/16 06:28 Microbiology Microbiology Microbiology Date/Time Source Procedure Growth Status 10/07/16 14:47 Foot, Surgical Site Right Gram Stain - Final Resulted 10/07/16 14:47 Surgical Culture - Preliminary Gram Positive Organism Resulted 10/07/16 14:44 Foot, Surgical Site Right Gram Stain - Final Resulted 10/07/16 14:44 Surgical Culture - Preliminary Gram Positive Organism Resulted Assessment & Plan Problems: (1) Non-healing ulcer of foot Onset Date: ~ 09/20/2016 Status: Acute Qualifiers: Laterality: right Non-pressure ulcer stage: unspecified non-pressure ulcer stage Qualified Codes: L97.519 - Non-pressure chronic ulcer of other part of right foot with unspecified severity Assessment & Plan: Nation has to week history of foot wound without drainage. There is low likelihood of osteomyelitis. Patient on Zosyn and vancomycin (2) Diabetes mellitus type II, uncontrolled Status: Chronic Qualifiers: Diabetes mellitus complication status: with skin complications Diabetes mellitus complication detail: with foot ulcer Assessment & Plan: Hemoglobin A-1 C pending. Likelihood of very poor control (3) Hyperglycemia Status: Acute Assessment & Plan: Trending down with insulin (4) HTN (hypertension) Status: Chronic Plan/Intensity of Service 10/08/16 Dr Huang saw patient this morning for recommendations regarding antimicrobial coverage and duration. Will evaluate recommendation once transcribed Vancomycin continues to be on hold. Random serum Vanco this morning was 26.4. Patient started on Unasyn 3g IV and daptomycin every 48 hours Unfortunately, creatinine continues to rise, and today it is 3.9. Will discuss further with Dr. Blood. May need to contact nephrology for recommendations. Urinary output continues to be adequate via James catheter. Total output yesterday, 1125ml, 850 ML overnight Continue need to encourage patient to advance oral intake If nausea is controlled. Monitor blood pressure as it has been intermittently mildly elevated. Recheck CBC and BMP tomorrow to follow blood counts, renal function and electrolytes. We'll discuss further plan of care with Dr. Blood Code Status Full Code Hospital Course Summary Disclaimer The hospital course summary below is not to be considered part of the above Progress Note. Hospital Course Summary 1. Diabetic foot ulcer acute present on admission: This is a significant wound at this point in time. Well start vancomycin, Zosyn, cultures were done by the ER, plain x-ray was reassuring for obvious osteomyelitis, consider MRI of the foot to better define the possibility of osteomyelitis. A wound care consult is indicated. Potential surgical evaluation would be indicated. There is drainage from the wound 2. Type 2 diabetes mellitus chronic present on admission: Poor control. Correctional plan. Adjust insulin as indicated. Patients sugars were significantly elevated on presentation, will monitor sugars carefully and utilize correctional plan aggressively. 3. Hypertension chronic present on admission: Patient is on an ARB and hydrochlorothiazide, will hold acutely overnight until sure blood pressure is stable. Restart in the morning and adjust as indicated. 4. Dehydration and acute present admission: IV fluids 5. Hyponatremia acute present on admission: Secondary to hypovolemia, IV fluids and repeat labs in the morning, additionally patients hyper-glycemia is contributing as well Day 2 patient with headache and most likely viral upper respiratory issues. Continuing antibiotics. Lovenox added issues not moving well today. Fioricet for the headache. 10/07/16 Creatinine continues to rise this morning up to 3.0. James catheter was placed this morning Renal sonogram is normal without evidence of mass, obstruction or hydronephrosis Vancomycin was stopped given continued rise in creatinine. Patient continues on Zosyn. Will need to evaluate antibiotic therapy moving forward. Given that we may need to cover for MRSA. Possible options include Teflaro, doxycycline. Will consult Dr Huang and ask her to see patient tomorrow for recommendations. Given increase loose stools a C-Diff stool sample was ordered Zofran and Phenergan as needed for nausea Continue to Monitor blood sugars, Humulin sliding scale Planning for surgical debridement of foot wound today by Dr Trenton Watson SQ daily for DVT prophylaxis Will recheck CBC and BMP tomorrow to follow blood counts, renal function and electrolytes. 10/08/16 Dr Huang saw patient this morning for recommendations regarding antimicrobial coverage and duration. Will evaluate recommendation once transcribed Vancomycin continues to be on hold. Random serum Vanco this morning was 26.4. Patient started on Unasyn 3g IV and daptomycin every 48 hours Unfortunately, creatinine continues to rise, and today it is 3.9. Will discuss further with Dr. Blood. May need to contact nephrology for recommendations. Urinary output continues to be adequate via James catheter. Total output yesterday, 1125ml, 850 ML overnight Continue need to encourage patient to advance oral intake If nausea is controlled. Monitor blood pressure as it has been intermittently mildly elevated. Recheck CBC and BMP tomorrow to follow blood counts, renal function and electrolytes. We'll discuss further plan of care with DANIA Zarco MD 10/08/16 1406: Assessment & Plan Plan/Intensity of Service Have independently interviewed and examined pt. Chart reviewed. Case discussed with CM and my HALL TENDER. Care plan developed with my supervision; agree with above. Doing fair. Still has nausea and decreased oral drive. Tolerating ice chips and popsicles, but that's about it. Bowels moving. Breathing well without SOA or congestion. No foot or wound pain (unless someone is working on wound, and then it is a little uncomfortable). No f/c. Lungs: clear CV: regular AB: soft nt/nd BS decreased EXT: trace edema MSE: awake alert appropriate Plan: will change IVF to D5W with 2 amps of sodium bicarb as CO2 with decrease. Dr Huang changed antibiotics to Unasyn and Daptomycin. Wound Team working on wound vac placement. Will consult with PT/OT due to gait disturbance from her foot wound. Will keep diet lite due to her nausea. Decrease Lovenox to 30mg due to increasing creatinine. DVT Prophylaxis: SCD'S, Lovenox VIKAS SQUIRES APRN Oct 08, 2016 11:43 DANIA BLOOD MD Oct 08, 2016 14:06
--- NOTE | 2016-10-08 12:20 | NUR ---
eilmination Up tp br with walker having liquid mucousy brown stools co of having stomach cramps.
--- NOTE | 2016-10-08 13:34 | PDWOUND ---
Wound Documentation Wound Management Wound : Location Modifier: Right Wound Location: Foot Wound Type: Surgical Wound Dressing Frequency: three times per week Wound Duration: two weeks Wound Dressing Status: FOUND: Moist Wound Drainage Amount: Moderate Wound Drainage Odor: None/Absent Wound General Appearance: FOUND Reddened, FOUND Unapproximated Periwound Description: Bright Red Wound Length (cm): 2.2 Wound Width (cm): 2.1 Wound Depth (cm): 0.4 Exposed: subtissue Wound Debridement: sharp Wound Solution/Irrigant: Saline Irrigant Wound Primary Dressing Type: Gauze Pads, Gauze Roll/Wrap, Aquacel AG Wound Tunneling : Tunneling Location (o'clock): [address] Chowdhury took pt on 10/07 to OR for debridement At this time in to assess wound and suggest treatment to . At this time wound vac seems appropriate. Discussed use of wound vac, discussed the need for close supervision and frequent vists to wound clinic or home health. Pt verbalized understanding. Will to continue to follow while in hospital HALEIGH DAMON RN Oct 08, 2016 13:33
[2016-10-08] MEDS: SODIUM BICARB IV SCH (15:22)
[2016-10-08] MEDS: D5W IV SCH (15:22)
--- NOTE | 2016-10-08 15:23 | NUR ---
elimanation Loose stools have slowed down for now. fluids encouraged.
[2016-10-08 15:37] VITALS: BP 153/92; PULSE 80; RESP 16; TEMP 96.9; O2SAT 96
--- NOTE | 2016-10-08 16:08 | CONSF ---
DATE OF CONSULTATION 10/08/2016 CHIEF COMPLAINT Infectious Disease consultation was requested by Dr. Blood for antibiotic recommendations for diabetic foot wound. HISTORY OF PRESENT ILLNESS Ms. Deshawn Lopez presented to the emergency department on October 03 with complaints of right foot wound and right foot pain. She states that she developed this wound on her foot about two weeks prior to admission. She states that she is not sure how she got it and that she has numbness in her foot. Per records, she was given clindamycin for several days which did not lead to any improvement with her foot wound. On admission her vital signs were within normal limits. She has not had a leukocytosis and her lactate was normal. She was started on vancomycin and Zosyn. Her creatinine on October 03 on admission was 0.7 and on the it was 0.5. She received a loading dose of vancomycin of 2 g on October 03 and then on October 04 through the she was dosed at 1.25 g IV q.8h. with vancomycin. The next serum creatinine was obtained on the and her creatinine was 2.3. Her vancomycin was discontinued. Her creatinine however has continued to increase and today is 3.9. Her vancomycin trough on the was 43.8. Her random vancomycin level today is 26. She had an MRI of her foot on the which showed some edema within the first metatarsal medial sesamoid bone which could possibly represent osteomyelitis. She was taken to the operating room by Dr. Chowdhury yesterday on October 07 and he debrided her wound. There was an eschar that was debrided and then there was some necrotic tissue and some purulence as well. He debrided down to the fascia over the sesamoid bone. Cultures were obtained in surgery. Both of them have gram positive organisms growing which have not yet been identified. Gram stains show few gram-positive cocci. She also had a renal ultrasound yesterday which was unremarkable. PAST MEDICAL HISTORY Diabetes mellitus type 2. Hypertension. Depression. She relates a history of mono in her 20s that made her relatively sick. PAST SURGICAL HISTORY She had some exploratory surgery in her 20s. She is status post debridement of right diabetic foot ulcer down to the fascia over the first metatarsal head on October 07, 2016. ALLERGIES No known medical allergies. SOCIAL HISTORY She is . She states she has never smoked. She denies any alcohol use. 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 FAMILY HISTORY Was reviewed and is noncontributory. CURRENT MEDICATIONS Zosyn 2.25 g IV q.6h. Vancomycin has been stopped. She was given Lasix yesterday. She is on insulin and she is on pain and nausea medications as needed. REVIEW OF SYSTEMS She denies any fevers. She denies any shaking chills although she does tell me that she had chills in the emergency room. She denies any sweats. She has had some nausea and some vomiting since her admission but she feels that this is because she is very sensitive to smells. She thinks that the sheets don't smell good and she states that she smells the medications that she is receiving and other smells in the hospital that are making her nauseated. She has had some intermittent vomiting. She denies any shortness of breath, any chest pain, any abdominal pain. She denies any problems with urination, although she did have a James catheter placed yesterday in order to try to measure her urinary output. She states that currently she is not having any pain in her right foot but previously she was. She does acknowledge some numbness and neuropathy symptoms. She denies any other specific complaints. The rest of the review of systems is negative other than that mentioned above. PHYSICAL EXAMINATION VITALS: Temperature 98.3. Blood pressure is 150/90. Pulse 87. Respirations 16. Oxygen saturation 92% on room air. Height is 65 inches. Weight is 78.5 kg. GENERAL: In general, she appears comfortable and is in no acute distress. HEENT: Pupils equal, round, reactive to light. Extraocular movements intact. Oropharynx is clear. Mucous membranes are moist. Dentition is fair. NECK: Supple. HEART: Regular rate and rhythm. No murmurs noted. LUNGS: Clear to auscultation bilaterally anteriorly. ABDOMEN: Soft and nontender. She has diminished bowel sounds. EXTREMITIES: No joint effusions are noted. No significant peripheral edema is noted. Her right foot is wrapped from her recent surgery. I can see that she has a wound on the plantar aspect of the first metatarsal head with some moderate surrounding erythema. NEURO: Exam is grossly nonfocal. She is alert and oriented. Speech is normal. PSYCHIATRIC: Her affect is flat. LABORATORY Laboratory was reviewed. Her hemoglobin A1c was greater than 15. Liver function tests have been normal. UA on admission was normal. She had a stool for Clostridium difficile test yesterday which was negative. IMPRESSION 1. Diabetic foot infection plantar aspect right first metatarsal head status post irrigation and debridement down to fascia over sesamoid bone on October 07, 2016, cultures with gram positive organisms. 2. Diabetes mellitus type 2, non-insulin dependent, poorly controlled with a hemoglobin A1c greater than 15. 3. Hypertension. 4. Depression. 5. Acute kidney injury, suspect secondary to vancomycin due to aggressive dosing as well as probably some element of underlying kidney disease. RECOMMENDATIONS I discussed with her that I would recommend treating her in the manner of osteomyelitis with six weeks of IV antibiotics. I discussed placing a PICC line with her and she was in agreement with that. I also discussed with her that I cannot finalize her antibiotics until we have her wound cultures which are still pending. However, I will try to choose an antibiotic that is convenient for outpatient dosing. I also discussed with her that I would recommend that she not be discharged until her creatinine improves. Currently I calculate her creatinine clearance at about 14. I will discontinue the Zosyn and narrow that to Unasyn. I will dose her at 3 g IV daily. If her creatinine clearance improves and is greater than 15 then her Unasyn dose would need to be increased to q.12h. Her vancomycin level today is 26 so she should still have therapeutic vancomycin in her system. I would recommend checking a vancomycin level in the morning. When her vancomycin level is less than about 18 then I would recommend starting her on daptomycin. Her daptomycin dose would be 6 mg/kg IV q.48h. as long as her creatinine clearance is less than 30. I discussed with the patient that I would not be able to come back to see her later this week but I could see her next week and if she is discharged I could follow up with her in the wound clinic. Thank you for allowing me to participate in the care of this patient. HUSSAIN
--- NOTE | 2016-10-08 16:27 | NUR ---
Dietary Consult R/T Hgb A1C > 15 Diet Order: Clear Liquids RD spoke with RN who stated pt was undergoing pic line placement. RD will return to complete consult. RD available at ext [phone]
--- NOTE | 2016-10-08 16:34 | NUR ---
piccline inserted in RU arm
--- NOTE | 2016-10-08 18:27 | NUR ---
resting taking bites of pudding and popsiclkes
[2016-10-08 20:05] VITALS: BP 162/85; PULSE 88; RESP 18; TEMP 97.5; O2SAT 96
[2016-10-09] VITALS: BP 142/81; PULSE 86; RESP 22; TEMP 96.9; O2SAT 92
[2016-10-09] MEDS: D5W IV SCH ×3 (01:54→21:15)
[2016-10-09] MEDS: SODIUM BICARB IV SCH ×3 (01:54→21:15)
[2016-10-09] MEDS: ONDANSETRON 4mg/2ml INJECTION IV PRN ×2 (02:45→17:26)
[2016-10-09 04:07] VITALS: BP 139/74; PULSE 84; RESP 16; TEMP 97.5; O2SAT 91
--- NOTE | 2016-10-09 05:07 | NUR ---
summary remains on room air. vss. up x1 with walker. zamora patent, draining. small loose bm early in shift. denies pain, soa. nausea with one episode of emesis this shift. prn zofran given as charted. dressing to right foot c/d/i. rested well this shift. some bites of popsicle this evening. no new concerns.
[2016-10-09 05:08] LABS: BASOPHILS % (AUTO) 0.3 % (0-2); EOSINOPHILS # (AUTO) 0.1 T/MM3 (0-0.5); EOSINOPHILS % (AUTO) 0.9 % (0-4); HCT - HEMATOCRIT 33.6 % (36-46); HGB - HEMOGLOBIN 11.4 GM/DL (12-16); IMMATURE GRANULOCYTE # (AUTO) 0.01 T/MM3 (0.00-0.03); IMMATURE GRANULOCYTE % (AUTO) 0.1 % (0.0-0.5); LYMPHOCYTES # (AUTO) 1.3 T/MM3 (1-4.8); LYMPHOCYTES % (AUTO) 17.8 % (23-45); MEAN CORPUSCULAR HGB 31.3 UUG (26-34); MEAN CORPUSCULAR HGB CONC(MCHC 33.9 GM/DL (31-37); MEAN CORPUSCULAR VOLUME 92.3 UM3 (80-100); MEAN PLATELET VOLUME 9.1 UM3 (9.4-12.4); MONOCYTES # (AUTO) 0.6 T/MM3 (0-0.8); MONOCYTES % (AUTO) 8.8 % (0-9.0); NEUTROPHILS #(AUTO)-ABSOLUTE 5.1 T/MM3 (1.8-7.7); NEUTROPHILS % (AUTO) 72.1 % (33-66); RED BLOOD COUNT 3.64 M/MM3 (4.00-5.20)
[2016-10-09 05:20] LABS: ANION GAP 12 MEQ/L (5-15); BUN/CREATININE RATIO 7 RATIO (6-26); CALCIUM 7.8 MG/DL (8.4-10.2); CHLORIDE 105 MEQ/L (98-107); CO2 - CARBON DIOXIDE 20 MEQ/L (22-30); CREATININE 3.7 MG/DL (0.7-1.2); GLOMERULAR FILTRATION RATE 13; GLUCOSE 251 MG/DL (65-110); POTASSIUM 3.4 MEQ/L (3.6-5); SODIUM 137 MEQ/L (134-144)
[2016-10-09] MEDS: INSULIN REGULAR 100 UNIT/ML SQ PRN ×4 (06:19→21:13)
[2016-10-09 08:03] VITALS: BP 139/74; PULSE 86; RESP 18; TEMP 97.5; O2SAT 92
[2016-10-09] MEDS: AMPICILLIN/SULBACTAM 3 G in NORMAL SALINE 100 ML IV SCH (09:10)
[2016-10-09] MEDS: ENOXAPARIN 30 MG/0.3 ML INJECTION SQ SCH (09:10)
--- NOTE | 2016-10-09 10:40 | NUR ---
ambulated with p.t using walker tolerated well up to chair with legs elevated back to bed
[2016-10-09] MEDS: NORMAL SALINE IV SCH (10:53)
[2016-10-09] MEDS: DAPTOMYCIN IV SCH (10:53)
[2016-10-09] MEDS ORDERED: INSULIN GLARGINE 100 UNIT/ML SQ ONE (11:15)
[2016-10-09] MEDS: BUMETANIDE IV SCH (12:03)
[2016-10-09] MEDS: RTU SALINE IV SCH (12:03)
[2016-10-09 12:06] VITALS: BP 149/90; PULSE 86; RESP 18; TEMP 97.2; O2SAT 92
[2016-10-09] MEDS ORDERED: POTASSIUM CHLORIDE 20 MEQ TABLET PO ONE ×2 (12:30→17:30)
--- NOTE | 2016-10-09 12:30 | NUR ---
DIABETES EDUCATION Able to perform glucose self-test on Main[employer] Contour Next meter. Adequate technique after 2 tries. Not familiar with process of sticking finger or applying blood to strip even though she reportedly had a meter last year. Needs frequent redirecting to present task. Says that she plans to ask two [id number] to help her with diabetes care. States signs/symptoms and treatment of hypoglycemia appropriately. Demonstration of insulin pen completed. Will attempt self-injection on 10/10/16. CDE can be reached at [phone].
--- NOTE | 2016-10-09 13:23 | PNPDOC ---
VIKAS SQUIRES V CAPTAIN CANNERY TENDER 10/09/16 1322: Subjective Date DATE: 10/09/16 TIME: 13:22 Subjective Overall she is looking better today. Nausea has improved today and she is tolerating PO intake better. Denies having pain today. She was able to ambulate to the front of the hospital today and tolerated that well. She did have stress overnight that caused her not to sleep as her was seen overnight in the ER for chest pain. UO yesterday [id number] via zamroa cath. Objective Vital Signs Vital signs Vital Signs Date Time Temp Pulse Resp B/P Pulse Ox O2 Delivery O2 Flow Rate FiO2 10/09/16 12:06 97.2 86 18 149/90 92 Room Air 10/07/16 15:05 5.00 Telemetry Rhythm: Sinus Rhythm Height (Feet): 5 Height (Inches): 5.00 Weight (Kilograms): 82.500 General General Appearance: Alert, Orientated x 3, Cooperative, No Acute Distress Eyes (Brief) Eyes: FOUND: EOMI ENMT (Brief) ENMT: FOUND: mucosa moist, normal dentition, NOT FOUND: pharnyx erythema Neck (Brief) Neck: FOUND: midline, NOT FOUND: adenopathy, carotid bruits, tracheal deviation Respiratory (Brief) Respiratory: FOUND: clear all house, equal bilaterally, NOT FOUND: wheezes Cardiovascular (Brief) Cardiac: FOUND: regular rate, regular rhythm, NOT FOUND: murmur, pedal edema Capillary Refill: <2 sec Abdomen (Brief) Abdominal: FOUND: BS normo active x4, soft, NOT FOUND: distended, tender Lymphatic (Brief) Lymphatic: NOT FOUND: adenopathy Musculoskeletal (Brief) Musculoskeletal: NOT FOUND: tenderness Integumentary (Brief) Integumentary: FOUND: dry, pink, warm Neurologic (Brief) Neurological: FOUND: cranial 2-12 intact Psychiatric (Brief) Psychiatric: FOUND: alert, attentive, normal affect, oriented Laboratory Laboratory Laboratory Tests 10/08/16 06:28 10/09/16 04:14 Laboratory Tests 10/08/16 06:28 10/09/16 04:14 Microbiology Microbiology Microbiology Date/Time Source Procedure Growth Status 10/07/16 14:47 Foot, Surgical Site Right Gram Stain - Final Resulted 10/07/16 14:47 Surgical Culture - Preliminary Gram Positive Organism Resulted 10/07/16 14:44 Foot, Surgical Site Right Gram Stain - Final Resulted 10/07/16 14:44 Surgical Culture - Preliminary Gram Positive Organism Resulted Assessment & Plan Problems: (1) Non-healing ulcer of foot Onset Date: ~ 09/20/2016 Status: Acute Qualifiers: Laterality: right Non-pressure ulcer stage: unspecified non-pressure ulcer stage Qualified Codes: L97.519 - Non-pressure chronic ulcer of other part of right foot with unspecified severity Assessment & Plan: Nation has to week history of foot wound without drainage. There is low likelihood of osteomyelitis. Patient on Zosyn and vancomycin (2) Diabetes mellitus type II, uncontrolled Status: Chronic Qualifiers: Diabetes mellitus complication status: with skin complications Diabetes mellitus complication detail: with foot ulcer Assessment & Plan: Hemoglobin A-1 C pending. Likelihood of very poor control (3) Hyperglycemia Status: Acute Assessment & Plan: Trending down with insulin (4) HTN (hypertension) Status: Chronic Plan/Intensity of Service 10/09/16 Overall appears to feel better today with less nausea. She is tolerating PO intake. Vegetables Cook has slightly decreased today to 3.7. Weight is up 10 KG from admission. Bumex drip is started at 0.5mg/hr for fluid motivation Continue with daptomycin and Unasyn IV for antimicrobial coverage. Surgical wound culture results review. Gram-positive cocci, culture and sensitivity pending. IV fluid continues with D5W with 2 amps of sodium bicarb at 100 ML/hr Continue to monitor blood sugars as they have been elevated. Will add Lantus 10 units at HS, in addition to Humulin R sliding scale insulin Continue to monitor labs carefully. We'll recheck CBC and BMP tomorrow morning to follow blood counts, renal function and electrolytes. Code Status Full Code Hospital Course Summary Disclaimer The hospital course summary below is not to be considered part of the above Progress Note. Hospital Course Summary 1. Diabetic foot ulcer acute present on admission: This is a significant wound at this point in time. Well start vancomycin, Zosyn, cultures were done by the ER, plain x-ray was reassuring for obvious osteomyelitis, consider MRI of the foot to better define the possibility of osteomyelitis. A wound care consult is indicated. Potential surgical evaluation would be indicated. There is drainage from the wound 2. Type 2 diabetes mellitus chronic present on admission: Poor control. Correctional plan. Adjust insulin as indicated. Patients sugars were significantly elevated on presentation, will monitor sugars carefully and utilize correctional plan aggressively. 3. Hypertension chronic present on admission: Patient is on an ARB and hydrochlorothiazide, will hold acutely overnight until sure blood pressure is stable. Restart in the morning and adjust as indicated. 4. Dehydration and acute present admission: IV fluids 5. Hyponatremia acute present on admission: Secondary to hypovolemia, IV fluids and repeat labs in the morning, additionally patients hyper-glycemia is contributing as well Day 2 patient with headache and most likely viral upper respiratory issues. Continuing antibiotics. Lovenox added issues not moving well today. Fioricet for the headache. 10/07/16 Creatinine continues to rise this morning up to 3.0. Zamora catheter was placed this morning Renal sonogram is normal without evidence of mass, obstruction or hydronephrosis Vancomycin was stopped given continued rise in creatinine. Patient continues on Zosyn. Will need to evaluate antibiotic therapy moving forward. Given that we may need to cover for MRSA. Possible options include Teflaro, doxycycline. Will consult Dr Huang and ask her to see patient tomorrow for recommendations. Given increase loose stools a C-Diff stool sample was ordered Zofran and Phenergan as needed for nausea Continue to Monitor blood sugars, Humulin sliding scale Planning for surgical debridement of foot wound today by Dr Trenton Watson SQ daily for DVT prophylaxis Will recheck CBC and BMP tomorrow to follow blood counts, renal function and electrolytes. 10/08/16 Dr Huang saw patient this morning for recommendations regarding antimicrobial coverage and duration. Will evaluate recommendation once transcribed Vancomycin continues to be on hold. Random serum Vanco this morning was 26.4. Patient started on Unasyn 3g IV and daptomycin every 48 hours Unfortunately, creatinine continues to rise, and today it is 3.9. Will discuss further with Dr. Blood. May need to contact nephrology for recommendations. Urinary output continues to be adequate via Zamora catheter. Total output yesterday, 1125ml, 850 ML overnight Continue need to encourage patient to advance oral intake If nausea is controlled. Monitor blood pressure as it has been intermittently mildly elevated. Recheck CBC and BMP tomorrow to follow blood counts, renal function and electrolytes. We'll discuss further plan of care with Dr. Blood 10/09/16 Overall appears to feel better today with less nausea. She is tolerating PO intake. Vegetables Cook has slightly decreased today to 3.7. Weight is up 10 KG from admission. Bumex drip is started at 0.5mg/hr for fluid motivation Continue with daptomycin and Unasyn IV for antimicrobial coverage. Surgical wound culture results review. Gram-positive cocci, culture and sensitivity pending. IV fluid continues with D5W with 2 amps of sodium bicarb at 100 ML/hr Continue to monitor blood sugars as they have been elevated. Will add Lantus 10 units at HS, in addition to Humulin R sliding scale insulin Continue to monitor labs carefully. We'll recheck CBC and BMP tomorrow morning to follow blood counts, renal function and electrolytes. DANIA BLOOD MD 10/09/16 2678: Assessment & Plan Plan/Intensity of Service Have independently interviewed and examined pt. Chart reviewed. Case discussed with nursing, CM and my CAPTAIN CANNERY TENDER. Care plan developed with my supervision; agree with above. Rough day. Very busy-people in and out constantly. Did get wound vac placed. Breathing well. Nausea still problematic-episode of vomiting. Passing stool. Worked with PT and did well. Lungs: clear, no distress CV: regular EXT: +3 edema MSE: awake alert appropriate Assessment as about with: Acute kidney injury Plan: Continue with antibiotics as per ID. Will continue with IVF - as creatinine without further increase, will start Bumex drip to attempt to turn to high output kidney failure. Add Lantus to help sugars-cautious use due to elevated creatinine. Monitor lab. VIKAS SQUIRES APRN Oct 09, 2016 13:22 DANIA BLOOD MD Oct 09, 2016 18:18
[2016-10-09] MEDS: HYDROCODONE/APAP 5 mg/325 mg TABLET PO PRN (15:16)
--- NOTE | 2016-10-09 15:52 | PDWOUND ---
Wound Documentation Wound Management Wound : Location Modifier: Right Wound Location: Foot Wound Type: Surgical Wound Dressing Frequency: three times per week Wound Duration: two weeks Wound Dressing Status: FOUND: Moist Wound Drainage Amount: Moderate Wound Drainage Odor: None/Absent Wound General Appearance: FOUND Reddened, FOUND Unapproximated Periwound Description: Bright Red Wound Length (cm): 2.2 Wound Width (cm): 2.1 Wound Depth (cm): 0.4 Exposed: subtissue Wound Debridement: sharp Wound Solution/Irrigant: Saline Irrigant Wound Primary Dressing Type: Gauze Pads, Gauze Roll/Wrap, Aquacel AG Wound Tunneling : Tunneling Location (o'clock): [address] vac, Periwound prepped, clear drape to periwound. Wound moved and bridged to foot wound. Black foam placed to wound bed and clear occlusive vac drape covered. Will reassess on Friday 10/13. HALEIGH DAMON RN Oct 09, 2016 15:51
[2016-10-09 16:00] VITALS: BP 160/87; PULSE 93; RESP 17; TEMP 99.4; O2SAT 96
--- NOTE | 2016-10-09 16:41 | NUR ---
medicated with [facility] 5 premed for wound vac application.
--- NOTE | 2016-10-09 17:47 | NUR ---
emesis of dark yellow gastric contents. Zofran given sivp. linens changed. refuses to take Potassium pills.
--- NOTE | 2016-10-09 18:28 | NUR ---
status wound vac on little to no drainage.taking bites of ana.
[2016-10-09 19:46] VITALS: BP 151/77; PULSE 83; RESP 20; TEMP 98.2; O2SAT 93
[2016-10-09] MEDS: INSULIN GLARGINE 100 UNIT/ML SQ SCH (21:43)
[2016-10-10] VITALS (7 sets, daily range): BP systolic 147–172; BP diastolic 80–87; PULSE 82–89; RESP 18–20; TEMP 97.5–99.1; O2SAT 91–94
[2016-10-10] MEDS: SODIUM BICARB IV SCH (00:06)
[2016-10-10] MEDS: D5W IV SCH (00:06)
--- NOTE | 2016-10-10 02:00 | NUR ---
Chart Check 24 hour chart check completed
--- NOTE | 2016-10-10 05:08 | NUR ---
shift summary pt slept soundly throughout the night. vss, on ra. denies pain/n/v/soa. repositions self in bed. zamora catheter with adequate output. dressing to right foot c/d/i--no drainage with wound vac. fluids ordered infusing in right picc, flushes and aspirates well. no prns. bed locked and low, bed alarm on. call light within reach. will continue to monitor.
[2016-10-10 05:22] LABS: BASOPHILS % (AUTO) 0.3 % (0-2); EOSINOPHILS # (AUTO) 0.1 T/MM3 (0-0.5); EOSINOPHILS % (AUTO) 1.6 % (0-4); HCT - HEMATOCRIT 33.9 % (36-46); HGB - HEMOGLOBIN 11.6 GM/DL (12-16); LYMPHOCYTES # (AUTO) 1.8 T/MM3 (1-4.8); LYMPHOCYTES % (AUTO) 23.9 % (23-45); MEAN CORPUSCULAR HGB 31.4 UUG (26-34); MEAN CORPUSCULAR HGB CONC(MCHC 34.2 GM/DL (31-37); MEAN CORPUSCULAR VOLUME 91.9 UM3 (80-100); MEAN PLATELET VOLUME 9.2 UM3 (9.4-12.4); MONOCYTES # (AUTO) 0.8 T/MM3 (0-0.8); MONOCYTES % (AUTO) 11.3 % (0-9.0); NEUTROPHILS #(AUTO)-ABSOLUTE 4.6 T/MM3 (1.8-7.7); NEUTROPHILS % (AUTO) 62.9 % (33-66); RED BLOOD COUNT 3.69 M/MM3 (4.00-5.20); WBC - WHITE BLOOD COUNT 7.3 T/MM3 (4.5-11.0)
[2016-10-10 05:27] LABS: ANION GAP 9 MEQ/L (5-15); BUN/CREATININE RATIO 7 RATIO (6-26); CALCIUM 7.6 MG/DL (8.4-10.2); CHLORIDE 99 MEQ/L (98-107); CO2 - CARBON DIOXIDE 28 MEQ/L (22-30); CREATININE 3.7 MG/DL (0.7-1.2); GLOMERULAR FILTRATION RATE 13; GLUCOSE 201 MG/DL (65-110); MAGNESIUM 1.5 MG/DL (1.6-2.3); SODIUM 136 MEQ/L (134-144)
[2016-10-10 05:36] LABS: POTASSIUM 2.6 MEQ/L (3.6-5)
--- NOTE | 2016-10-10 05:40 | NUR ---
critical K+ lab called to report pts critical K+ level of 2.6. this rn notified dr. marx via tiger text of potassium level. said he would put in orders. then ordered to stop Bicarb fluids and start NS + 20kcl to run @ 75ml/hr and to give 20meQ oral potassium (ok to give now if stomach can handle it). will continue to monitor.
[2016-10-10] MEDS: INSULIN REGULAR 100 UNIT/ML SQ PRN (06:04)
[2016-10-10] MEDS: NS KCL 20 MEQ 1,000 ML IV SCH (06:05)
[2016-10-10] MEDS: POTASSIUM CHLORIDE 10 MEQ TABLET PO SCH ×2 (06:08→12:00)
[2016-10-10] MEDS: ONDANSETRON 4mg/2ml INJECTION IV PRN (06:20)
--- NOTE | 2016-10-10 06:35 | NUR ---
emesis/new orders after pt given oral potassium, pt had 50ml emesis. unable to see potassium pills in emesis. reported this to dr. marx via tiger text and requested potassium boluses. ordered iv potassium boluses x 4. will continue to monitor.
[2016-10-10] MEDS: POTASSIUM CHLORIDE 10 MEQ, LIDOCAINE 1% 10 MG in NORMAL SALINE 100 ML IV SCH ×4 (06:57→11:25)
[2016-10-10] MEDS: AMPICILLIN/SULBACTAM 3 G in NORMAL SALINE 100 ML IV SCH (09:29)
[2016-10-10] MEDS: ENOXAPARIN 30 MG/0.3 ML INJECTION SQ SCH (09:30)
--- NOTE | 2016-10-10 11:12 | PNPDOC ---
VIKAS SQUIRES V WEB PRODUCTION MANAGER 10/10/16 1109: Subjective Date DATE: 10/10/16 TIME: 11:01 Subjective Rebecca is seen this morning in follow up. She is laying in bed resting and reports she is having a difficult morning due to "Smells" in the room. She reports nursing staff is bothering her with smells and hand soap as well as student teaching. She continues to have difficulty eating without getting nauseated however she has not vomited recently. UO yesterday was 2400ml and weight is down 2 KG today. Objective Vital Signs Vital signs Vital Signs Date Time Temp Pulse Resp B/P Pulse Ox O2 Delivery O2 Flow Rate FiO2 10/10/16 08:05 97.8 83 20 153/80 Room Air 10/10/16 04:17 91 10/07/16 15:05 5.00 Telemetry Rhythm: Sinus Rhythm Height (Feet): 5 Height (Inches): 5.00 Weight (Kilograms): 80.400 General General Appearance: Alert, Orientated x 3, Cooperative, No Acute Distress Eyes (Brief) Eyes: FOUND: EOMI ENMT (Brief) ENMT: FOUND: mucosa moist, normal dentition, NOT FOUND: pharnyx erythema Neck (Brief) Neck: FOUND: midline, NOT FOUND: adenopathy, carotid bruits, tracheal deviation Respiratory (Brief) Respiratory: FOUND: clear all house, equal bilaterally, NOT FOUND: wheezes Cardiovascular (Brief) Cardiac: FOUND: regular rate, regular rhythm, NOT FOUND: murmur, pedal edema Capillary Refill: <2 sec Abdomen (Brief) Abdominal: FOUND: BS normo active x4, soft, NOT FOUND: distended, tender Lymphatic (Brief) Lymphatic: NOT FOUND: adenopathy Musculoskeletal (Brief) Musculoskeletal: NOT FOUND: tenderness Integumentary (Brief) Integumentary: FOUND: dry, pink, warm Neurologic (Brief) Neurological: FOUND: cranial 2-12 intact Psychiatric (Brief) Psychiatric: FOUND: alert, attentive, normal affect, oriented Laboratory Laboratory Laboratory Tests 10/09/16 04:14 10/10/16 04:14 Laboratory Tests 10/09/16 04:14 10/10/16 04:14 Microbiology Microbiology Microbiology Date/Time Source Procedure Growth Status 10/07/16 14:47 Foot, Surgical Site Right Gram Stain - Final Resulted 10/07/16 14:47 Surgical Culture - Preliminary Gram Positive Cocci Coag Negative Staphylococcus Resulted 10/07/16 14:44 Foot, Surgical Site Right Gram Stain - Final Resulted 10/07/16 14:44 Surgical Culture - Preliminary Gram Positive Cocci Coag Negative Staphylococcus Resulted Assessment & Plan Problems: (1) Non-healing ulcer of foot Onset Date: ~ 09/20/2016 Status: Acute Qualifiers: Laterality: right Non-pressure ulcer stage: unspecified non-pressure ulcer stage Qualified Codes: L97.519 - Non-pressure chronic ulcer of other part of right foot with unspecified severity Assessment & Plan: Nation has to week history of foot wound without drainage. There is low likelihood of osteomyelitis. Patient on Zosyn and vancomycin (2) KALPANA (acute kidney injury) Status: Acute Assessment & Plan: POA (3) Diabetes mellitus type II, uncontrolled Status: Chronic Qualifiers: Diabetes mellitus complication status: with skin complications Diabetes mellitus complication detail: with foot ulcer Assessment & Plan: Hemoglobin A-1 C pending. Likelihood of very poor control (4) Hyperglycemia Status: Acute Assessment & Plan: Trending down with insulin (5) HTN (hypertension) Status: Chronic Plan/Intensity of Service 10/10/16 Did speak with nursing staff regarding limiting odors. Patient is exposed to as well as limiting time./Teaching in patient's room. Continue Encourage patient to drink and eat as she feels able. Creatinine remains elevated at 3.7. Continue with Bumex drip for fluid motivation. Urinary output yesterday was 2400 ML and weight has trended down 2 kilograms. Potassium did decrease this morning down to 2.6. IV supplementation was initiated. Continue with Unasyn and daptomycin for antimicrobial coverage. Wound culture does reveal gram-positive cocci, sensitivities pending. Continue to monitor blood sugars, Lantus 10 units at at bedtime and sliding scale insulin. Will recheck CBC and BMP tomorrow morning Code Status Full Code Hospital Course Summary Disclaimer The hospital course summary below is not to be considered part of the above Progress Note. Hospital Course Summary 1. Diabetic foot ulcer acute present on admission: This is a significant wound at this point in time. Well start vancomycin, Zosyn, cultures were done by the ER, plain x-ray was reassuring for obvious osteomyelitis, consider MRI of the foot to better define the possibility of osteomyelitis. A wound care consult is indicated. Potential surgical evaluation would be indicated. There is drainage from the wound 2. Type 2 diabetes mellitus chronic present on admission: Poor control. Correctional plan. Adjust insulin as indicated. Patients sugars were significantly elevated on presentation, will monitor sugars carefully and utilize correctional plan aggressively. 3. Hypertension chronic present on admission: Patient is on an ARB and hydrochlorothiazide, will hold acutely overnight until sure blood pressure is stable. Restart in the morning and adjust as indicated. 4. Dehydration and acute present admission: IV fluids 5. Hyponatremia acute present on admission: Secondary to hypovolemia, IV fluids and repeat labs in the morning, additionally patients hyper-glycemia is contributing as well Day 2 patient with headache and most likely viral upper respiratory issues. Continuing antibiotics. Lovenox added issues not moving well today. Fioricet for the headache. 10/07/16 Creatinine continues to rise this morning up to 3.0. James catheter was placed this morning Renal sonogram is normal without evidence of mass, obstruction or hydronephrosis Vancomycin was stopped given continued rise in creatinine. Patient continues on Zosyn. Will need to evaluate antibiotic therapy moving forward. Given that we may need to cover for MRSA. Possible options include Teflaro, doxycycline. Will consult Dr Huang and ask her to see patient tomorrow for recommendations. Given increase loose stools a C-Diff stool sample was ordered Zofran and Phenergan as needed for nausea Continue to Monitor blood sugars, Humulin sliding scale Planning for surgical debridement of foot wound today by Dr Chowdhury Lovenox SQ daily for DVT prophylaxis Will recheck CBC and BMP tomorrow to follow blood counts, renal function and electrolytes. 10/08/16 Dr Huang saw patient this morning for recommendations regarding antimicrobial coverage and duration. Will evaluate recommendation once transcribed Vancomycin continues to be on hold. Random serum Vanco this morning was 26.4. Patient started on Unasyn 3g IV and daptomycin every 48 hours Unfortunately, creatinine continues to rise, and today it is 3.9. Will discuss further with Dr. Blood. May need to contact nephrology for recommendations. Urinary output continues to be adequate via James catheter. Total output yesterday, 1125ml, 850 ML overnight Continue need to encourage patient to advance oral intake If nausea is controlled. Monitor blood pressure as it has been intermittently mildly elevated. Recheck CBC and BMP tomorrow to follow blood counts, renal function and electrolytes. We'll discuss further plan of care with Dr. Blood 10/09/16 Overall appears to feel better today with less nausea. She is tolerating PO intake. Stuffed Casing Tier has slightly decreased today to 3.7. Weight is up 10 KG from admission. Bumex drip is started at 0.5mg/hr for fluid motivation Continue with daptomycin and Unasyn IV for antimicrobial coverage. Surgical wound culture results review. Gram-positive cocci, culture and sensitivity pending. IV fluid continues with D5W with 2 amps of sodium bicarb at 100 ML/hr Continue to monitor blood sugars as they have been elevated. Will add Lantus 10 units at HS, in addition to Humulin R sliding scale insulin Continue to monitor labs carefully. We'll recheck CBC and BMP tomorrow morning to follow blood counts, renal function and electrolytes. 10/10/16 Did speak with nursing staff regarding limiting odors. Patient is exposed to as well as limiting time./Teaching in patient's room. Continue Encourage patient to drink and eat as she feels able. Creatinine remains elevated at 3.7. Continue with Bumex drip for fluid motivation. Urinary output yesterday was 2400 ML and weight has trended down 2 kilograms. Potassium did decrease this morning down to 2.6. IV supplementation was initiated. Continue with Unasyn and daptomycin for antimicrobial coverage. Wound culture does reveal gram-positive cocci, sensitivities pending. Continue to monitor blood sugars, Lantus 10 units at at bedtime and sliding scale insulin. Will recheck CBC and BMP tomorrow morning DANIA BLOOD MD 10/10/16 1415: Assessment & Plan Problems: (1) Non-healing ulcer of foot Onset Date: ~ 09/20/2016 Status: Acute Qualifiers: Laterality: right Non-pressure ulcer stage: unspecified non-pressure ulcer stage Qualified Codes: L97.519 - Non-pressure chronic ulcer of other part of right foot with unspecified severity (2) KALPANA (acute kidney injury) Status: Acute Assessment & Plan: Not POA (3) Diabetes mellitus type II, uncontrolled Status: Chronic Qualifiers: Diabetes mellitus complication status: with skin complications Diabetes mellitus complication detail: with foot ulcer Assessment & Plan: Hemoglobin A-1 C pending. Likelihood of very poor control (4) Hyperglycemia Status: Acute (5) HTN (hypertension) Status: Chronic (6) Nausea & vomiting Status: Acute Qualifiers: Vomiting type: unspecified Vomiting Intractability: unspecified Qualified Codes: R11.2 - Nausea with vomiting, unspecified Assessment & Plan: ? Secondary to KALPANA. (7) Hypokalemia Status: Acute Assessment & Plan: Not POA (8) 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 Status: Chronic Plan/Intensity of Service Have independently interviewed and examined pt. Chart reviewed. Case discussed with nursing, CM, Dr Chowdhury and my WEB PRODUCTION MANAGER. Care plan developed with my supervision; agree with above. Little change. Nausea still big problem. Not able to take oral potassium this morning - had emesis very shortly after it was give. Able to take SMALL bites of crackers VERY SLOWLY. Odors cause significant nausea. Breathing well. Not up much (wound vac on foot). No pain to foot. No f/c. Lungs: clear CV: regular AB; soft nt/nd BS decreased EXT: +2 LE edema MSE: awake alert appropriate Plan: Continue antibiotics and wound vac. IVF changed to NS with 20KCl by TeleHospitalist and IV potassium bolus given due to hypokalemia. Need to be cautious with potassium intake due to KALPANA, but with Bumex drip helping to increase urine output likely will start to see more renal potassium wasting. [place] diet as pt can tolerate. Encourage activities as pt able. Will recheck BMP in am to monitor creatinine and sodium/potassium. Check Mg and Phos in am due to KALPANA. Check CBC due to infection and Lovenox use. Emotional support given to pt. DVT Prophylaxis: VIKAS Chen APRN Oct 10, 2016 11:09 DANIA BLOOD MD Oct 10, 2016 14:15
[2016-10-10] MEDS: BUMETANIDE IV SCH ×2 (11:15→13:58)
[2016-10-10] MEDS: RTU SALINE IV SCH ×2 (11:15→13:58)
--- NOTE | 2016-10-10 12:13 | NUR ---
DIABETES EDUCATION Injection teaching performed. Able to give sample injection and change needle on insulin pen. Self-injected sterile normal saline by using vial and syringe with adequate technique. Discussed insulin basics and BD starter kit provided. Understands that she will take long-acting insulin at consistent time of day. Accurately verbalizes treatment of hypoglycemia. Outpatient diabetes education brochure and business card provided.
[2016-10-10] MEDS ORDERED: MAGNESIUM OXIDE 400 MG TABLET PO ONE (13:30)
--- NOTE | 2016-10-10 15:47 | NUR ---
Nutrition Risk R/T poor po intake > 3 days while in the hospital Diet Order: Full liquid diet with toast and crackers RD visited pt who stated she was not up to talking about her diabetes and a consistent carb diet for home because of her nausea. Pt stated she has tried applesauce, crackers, pudding, juice and jello and that nothing stays down. Pt states she has also had a difficult time with diarrhea. RD suggested yogurt, pt tried it and stated that it tasted good. Pt then was able to take a pill she had been trying to get down. Pt requested additional yogurt for over the weekend. [employer] notified to offer pt yogurt for meals. Pt was not interested in trying mighty shakes. RD available at ext [phone]
--- NOTE | 2016-10-10 18:30 | NUR ---
SHIFT SUMMARY: Alert and orientated. Potassium Boluses X4 given for critical Potassium level this morning. Continues to recieve IV Unasyn. NS with 20 meq. KCL infuses at 75 cc/hr. BUMEX gtt. at 2 cc/hr. James cathater intact. Large amount Urine draining to dependant drainage bag. Hair was shampooed today. Sat on side of bed. Trying to eat more food. Incontinent of liquidy stool X [address]. Uses call light appropriately.
[2016-10-10] MEDS: INSULIN GLARGINE 100 UNIT/ML SQ SCH (21:53)
[2016-10-11] VITALS (8 sets, daily range): BP systolic 134–155; BP diastolic 71–89; PULSE 86–97; RESP 12–18; TEMP 97.2–99.4; O2SAT 91–94
[2016-10-11] MEDS: NS KCL 20 MEQ 1,000 ML IV SCH ×2 (02:50→08:25)
[2016-10-11 05:24] LABS: BASOPHILS % (AUTO) 0.1 % (0-2); EOSINOPHILS # (AUTO) 0.1 T/MM3 (0-0.5); EOSINOPHILS % (AUTO) 1.1 % (0-4); HCT - HEMATOCRIT 34.3 % (36-46); HGB - HEMOGLOBIN 11.5 GM/DL (12-16); IMMATURE GRANULOCYTE # (AUTO) 0.01 T/MM3 (0.00-0.03); IMMATURE GRANULOCYTE % (AUTO) 0.1 % (0.0-0.5); LYMPHOCYTES # (AUTO) 1.9 T/MM3 (1-4.8); LYMPHOCYTES % (AUTO) 24.1 % (23-45); MEAN CORPUSCULAR HGB CONC(MCHC 33.5 GM/DL (31-37); MEAN CORPUSCULAR VOLUME 92.5 UM3 (80-100); MEAN PLATELET VOLUME 9.1 UM3 (9.4-12.4); MONOCYTES # (AUTO) 0.9 T/MM3 (0-0.8); MONOCYTES % (AUTO) 10.9 % (0-9.0); NEUTROPHILS #(AUTO)-ABSOLUTE 5.1 T/MM3 (1.8-7.7); NEUTROPHILS % (AUTO) 63.7 % (33-66); RED BLOOD COUNT 3.71 M/MM3 (4.00-5.20)
[2016-10-11 05:37] LABS: ANION GAP 12 MEQ/L (5-15); BUN/CREATININE RATIO 6 RATIO (6-26); CALCIUM 7.7 MG/DL (8.4-10.2); CHLORIDE 98 MEQ/L (98-107); CO2 - CARBON DIOXIDE 29 MEQ/L (22-30); CREATININE 3.9 MG/DL (0.7-1.2); GLOMERULAR FILTRATION RATE 12; GLUCOSE 107 MG/DL (65-110); MAGNESIUM 1.6 MG/DL (1.6-2.3); PHOSPHORUS 4.3 MG/DL (2.5-4.5); POTASSIUM 3.1 MEQ/L (3.6-5); SODIUM 139 MEQ/L (134-144)
--- NOTE | 2016-10-11 06:26 | NUR ---
pt alert and oriented. able to make needs known to the staffs. no prn given this shift. pt slept well. continues on iv fluids and bumex gtt. zamora intact. incontinent of bowels.
--- NOTE | 2016-10-11 06:32 | NUR ---
LABS. POTASSIUM LEVEL 3.1 TODAY. TELE DOC TEXTED.
[2016-10-11] MEDS: NORMAL SALINE IV SCH (09:52)
[2016-10-11] MEDS: ENOXAPARIN 30 MG/0.3 ML INJECTION SQ SCH (09:52)
[2016-10-11] MEDS: DAPTOMYCIN IV SCH (09:52)
[2016-10-11] MEDS: POTASSIUM CHLORIDE 20 MEQ TABLET PO SCH ×3 (09:53→17:08)
[2016-10-11] MEDS: AMPICILLIN/SULBACTAM 3 G in NORMAL SALINE 100 ML IV SCH (09:53)
--- NOTE | 2016-10-11 11:10 | PNPDOC ---
Subjective Date DATE: 10/11/16 TIME: 11:03 Subjective Doing well currently, feeling much better without nausea. Would like to get up OOB today. Was able to eat some soup yesterday, trying toast this morning. No vomiting overnight. Objective Vital Signs Vital signs Vital Signs Date Time Temp Pulse Resp B/P Pulse Ox O2 Delivery O2 Flow Rate FiO2 10/11/16 09:15 97.2 86 18 134/74 91 Room Air 10/07/16 15:05 5.00 Telemetry Rhythm: Sinus Rhythm Height (Feet): 5 Height (Inches): 5.00 Weight (Kilograms): 79.300 General General Appearance: Alert, Orientated x 3, Cooperative Eyes (Brief) Eyes: FOUND: EOMI, PERRL, NOT FOUND: scleral icterus Neck (Brief) Neck: NOT FOUND: JVD, adenopathy Cardiovascular (Brief) Cardiac: FOUND: regular rate, regular rhythm, NOT FOUND: pedal edema Abdomen (Brief) Abdominal: FOUND: soft, NOT FOUND: distended, tender Extremities (Brief) Extremity : Comments Right foot with wound vac intact Integumentary (Brief) Integumentary: FOUND: dry, warm, NOT FOUND: rash Laboratory Laboratory Laboratory Tests 10/10/16 04:14 10/11/16 03:59 Laboratory Tests 10/10/16 04:14 10/11/16 03:59 Assessment & Plan Problems: (1) Non-healing ulcer of foot Onset Date: ~ 09/20/2016 Status: Acute Qualifiers: Laterality: right Non-pressure ulcer stage: unspecified non-pressure ulcer stage Qualified Codes: L97.519 - Non-pressure chronic ulcer of other part of right foot with unspecified severity (2) KALPANA (acute kidney injury) Status: Acute Assessment & Plan: Not POA (3) Diabetes mellitus type II, uncontrolled Status: Chronic Qualifiers: Diabetes mellitus complication status: with skin complications Diabetes mellitus complication detail: with foot ulcer Assessment & Plan: Hemoglobin A-1 C pending. Likelihood of very poor control (4) Hyperglycemia Status: Acute (5) HTN (hypertension) Status: Chronic (6) Nausea & vomiting Status: Acute Qualifiers: Vomiting type: unspecified Vomiting Intractability: unspecified Qualified Codes: R11.2 - Nausea with vomiting, unspecified Assessment & Plan: ? Secondary to KALPANA. (7) Hypokalemia Status: Acute Assessment & Plan: Not POA (8) 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 Status: Chronic Assessment 10/11/16 Stop IVF this morning and continue on bumex gtt today Continue to encourage patient to drink and eat as she feels able Creatinine remains elevated at 3.9 today (from 3.7); presumably ATN and nonoliguric, continue bumex as above Check diff with CBC in AM to ensure no evidence of AIN/no eosinophilia Repeat renal panel + CBC in AM as well as Mg for surveillance with diuresis Aggressive K replacement today, recheck this afternoon for surveillance Continue with Unasyn and daptomycin for antimicrobial coverage. Wound culture does reveal gram-positive cocci, will follow. Continue to monitor blood sugars, Lantus 10 units at at bedtime and sliding scale insulin. Avoid nephrotoxins and renally dose meds given KALPANA Continued supportive care for nausea and pain Plan/Intensity of Service Have independently interviewed and examined pt. Chart reviewed. Case discussed with nursing, CM, Dr Chowdhury and my COMMUNICATION CONSULTANT. Care plan developed with my supervision; agree with above. DVT Prophylaxis: SQ Heparin Code Status Full Code Hospital Course Summary Disclaimer The hospital course summary below is not to be considered part of the above Progress Note. Hospital Course Summary 1. Diabetic foot ulcer acute present on admission: This is a significant wound at this point in time. Well start vancomycin, Zosyn, cultures were done by the ER, plain x-ray was reassuring for obvious osteomyelitis, consider MRI of the foot to better define the possibility of osteomyelitis. A wound care consult is indicated. Potential surgical evaluation would be indicated. There is drainage from the wound 2. Type 2 diabetes mellitus chronic present on admission: Poor control. Correctional plan. Adjust insulin as indicated. Patients sugars were significantly elevated on presentation, will monitor sugars carefully and utilize correctional plan aggressively. 3. Hypertension chronic present on admission: Patient is on an ARB and hydrochlorothiazide, will hold acutely overnight until sure blood pressure is stable. Restart in the morning and adjust as indicated. 4. Dehydration and acute present admission: IV fluids 5. Hyponatremia acute present on admission: Secondary to hypovolemia, IV fluids and repeat labs in the morning, additionally patients hyper-glycemia is contributing as well Day 2 patient with headache and most likely viral upper respiratory issues. Continuing antibiotics. Lovenox added issues not moving well today. Fioricet for the headache. 10/07/16 Creatinine continues to rise this morning up to 3.0. James catheter was placed this morning Renal sonogram is normal without evidence of mass, obstruction or hydronephrosis Vancomycin was stopped given continued rise in creatinine. Patient continues on Zosyn. Will need to evaluate antibiotic therapy moving forward. Given that we may need to cover for MRSA. Possible options include Teflaro, doxycycline. Will consult Dr Huang and ask her to see patient tomorrow for recommendations. Given increase loose stools a C-Diff stool sample was ordered Zofran and Phenergan as needed for nausea Continue to Monitor blood sugars, Humulin sliding scale Planning for surgical debridement of foot wound today by Dr Chowdhury Lovenox SQ daily for DVT prophylaxis Will recheck CBC and BMP tomorrow to follow blood counts, renal function and electrolytes. 10/08/16 Dr Huang saw patient this morning for recommendations regarding antimicrobial coverage and duration. Will evaluate recommendation once transcribed Vancomycin continues to be on hold. Random serum Vanco this morning was 26.4. Patient started on Unasyn 3g IV and daptomycin every 48 hours Unfortunately, creatinine continues to rise, and today it is 3.9. Will discuss further with Dr. Blood. May need to contact nephrology for recommendations. Urinary output continues to be adequate via James catheter. Total output yesterday, 1125ml, 850 ML overnight Continue need to encourage patient to advance oral intake If nausea is controlled. Monitor blood pressure as it has been intermittently mildly elevated. Recheck CBC and BMP tomorrow to follow blood counts, renal function and electrolytes. We'll discuss further plan of care with Dr. Blood 10/09/16 Overall appears to feel better today with less nausea. She is tolerating PO intake. [place] Former has slightly decreased today to 3.7. Weight is up 10 KG from admission. Bumex drip is started at 0.5mg/hr for fluid motivation Continue with daptomycin and Unasyn IV for antimicrobial coverage. Surgical wound culture results review. Gram-positive cocci, culture and sensitivity pending. IV fluid continues with D5W with 2 amps of sodium bicarb at 100 ML/hr Continue to monitor blood sugars as they have been elevated. Will add Lantus 10 units at HS, in addition to Humulin R sliding scale insulin Continue to monitor labs carefully. We'll recheck CBC and BMP tomorrow morning to follow blood counts, renal function and electrolytes. 10/10/16 Did speak with nursing staff regarding limiting odors. Patient is exposed to as well as limiting time./Teaching in patient's room. Continue Encourage patient to drink and eat as she feels able. Creatinine remains elevated at 3.7. Continue with Bumex drip for fluid motivation. Urinary output yesterday was 2400 ML and weight has trended down 2 kilograms. Potassium did decrease this morning down to 2.6. IV supplementation was initiated. Continue with Unasyn and daptomycin for antimicrobial coverage. Wound culture does reveal gram-positive cocci, sensitivities pending. Continue to monitor blood sugars, Lantus 10 units at at bedtime and sliding scale insulin. Will recheck CBC and BMP tomorrow morning 10/11/16 Stop IVF this morning and continue on bumex gtt today Continue to encourage patient to drink and eat as she feels able Creatinine remains elevated at 3.9 today (from 3.7); presumably ATN and nonoliguric, continue bumex as above Check diff with CBC in AM to ensure no evidence of AIN/no eosinophilia Repeat renal panel + CBC in AM as well as Mg for surveillance with diuresis Aggressive K replacement today, recheck this afternoon for surveillance Continue with Unasyn and daptomycin for antimicrobial coverage. Wound culture does reveal gram-positive cocci, will follow. Continue to monitor blood sugars, Lantus 10 units at at bedtime and sliding scale insulin. Avoid nephrotoxins and renally dose meds given KALPANA Continued supportive care for nausea and pain KRYSTLE MCKINNEY MD Oct 11, 2016 11:06
[2016-10-11] MEDS: INSULIN REGULAR 100 UNIT/ML SQ PRN ×3 (11:19→21:17)
[2016-10-11] MEDS: INSULIN GLARGINE 100 UNIT/ML SQ SCH (21:03)
[2016-10-11] MEDS: HEPARIN SUB-Q 5,000 unit/0.5ml vial SQ SCH (21:03)
--- NOTE | 2016-10-11 21:17 | NUR ---
BGM BGM 222,SLIDING SCALE INSULIN GIVEN.
--- NOTE | 2016-10-11 22:49 | NUR ---
Chart Check 24 hour chart check completed
[2016-10-12] VITALS: BP 146/82; PULSE 93; RESP 16; TEMP 98.2; O2SAT 93
[2016-10-12 03:41] VITALS: BP 141/77; PULSE 87; RESP 16; TEMP 97.4; O2SAT 90
--- NOTE | 2016-10-12 04:44 | NUR ---
STATUS PATIENT ALERT AND ORIENTEDX3. PATIENT C/O HEADACHE ,RATED 2/10. PRN FIORICET WAS GIVEN. BUMEX GTT 2CC/HR THROUGH R PICC . [facility] CATHETER INTACT. ADEQUATE URINARY OUTPUT FROM [facility] . WOUND VAC IN PLACE. DRESSING TO RIGHT FOOT C/D/I-NO DRAINAGE WITH WOUND VAC. PATIENT HAD SMALL ,SOFT BMX1 DURING NIGHT . PATIENT UP TO COMMODE WITH WALKER BY ONE STANDBY ASSIST. CALL LIGHT WITHIN REACH. BED ALARM ON. CONTINUE TO MONITOR.
[2016-10-12 05:13] LABS: BASOPHILS % (AUTO) 0.3 % (0-2); EOSINOPHILS # (AUTO) 0.1 T/MM3 (0-0.5); EOSINOPHILS % (AUTO) 1.7 % (0-4); HCT - HEMATOCRIT 33.5 % (36-46); HGB - HEMOGLOBIN 11.1 GM/DL (12-16); IMMATURE GRANULOCYTE # (AUTO) 0.01 T/MM3 (0.00-0.03); IMMATURE GRANULOCYTE % (AUTO) 0.1 % (0.0-0.5); LYMPHOCYTES % (AUTO) 25.8 % (23-45); MEAN CORPUSCULAR HGB CONC(MCHC 33.1 GM/DL (31-37); MEAN CORPUSCULAR VOLUME 93.6 UM3 (80-100); MONOCYTES # (AUTO) 0.8 T/MM3 (0-0.8); NEUTROPHILS #(AUTO)-ABSOLUTE 4.6 T/MM3 (1.8-7.7); NEUTROPHILS % (AUTO) 61.1 % (33-66); RED BLOOD COUNT 3.58 M/MM3 (4.00-5.20); WBC - WHITE BLOOD COUNT 7.6 T/MM3 (4.5-11.0)
[2016-10-12 05:28] LABS: ALBUMIN 2.9 G/DL (3.5-5.0); ANION GAP 9 MEQ/L (5-15); BUN/CREATININE RATIO 8 RATIO (6-26); CALCIUM 7.8 MG/DL (8.4-10.2); CHLORIDE 95 MEQ/L (98-107); CO2 - CARBON DIOXIDE 31 MEQ/L (22-30); CREATININE 3.7 MG/DL (0.7-1.2); GLOMERULAR FILTRATION RATE 13; GLUCOSE 210 MG/DL (65-110); PHOSPHORUS 3.9 MG/DL (2.5-4.5); POTASSIUM 3.5 MEQ/L (3.6-5); SODIUM 135 MEQ/L (134-144)
[2016-10-12] MEDS: INSULIN REGULAR 100 UNIT/ML SQ PRN ×4 (05:35→22:01)
[2016-10-12 08:00] VITALS: BP 156/95; PULSE 78; PULSE 87; RESP 16; TEMP 97.5; O2SAT 94
[2016-10-12] MEDS ORDERED: NS 500 ML IV PRN (09:00)
[2016-10-12] MEDS: POTASSIUM CHLORIDE 20 MEQ TABLET PO SCH ×3 (09:02→18:16)
[2016-10-12] MEDS: AMPICILLIN/SULBACTAM 3 G in NORMAL SALINE 100 ML IV SCH (09:03)
[2016-10-12] MEDS: HEPARIN SUB-Q 5,000 unit/0.5ml vial SQ SCH ×2 (09:03→21:25)
--- NOTE | 2016-10-12 09:10 | NUR ---
PHYSICIAN CONTACT DR. MCKINNEY IN ROOM FOR PT EVAL/ASSMT
[2016-10-12] MEDS: MAGNESIUM SULFATE IV SCH ×2 (10:04→12:09)
[2016-10-12] MEDS: NORMAL SALINE IV SCH ×2 (10:04→12:09)
--- NOTE | 2016-10-12 10:10 | PNPDOC ---
Subjective Date DATE: 10/12/16 TIME: 10:00 Subjective No new events overnight, was able to get up to the commode yesterday with her walker. Breathing improved, no abdominal pain or nausea. Eating better. Wound vac remains intact to the left foot. Denies pain. Hoping to advance diet a little today. Objective Vital Signs Vital signs Vital Signs Date Time Temp Pulse Resp B/P Pulse Ox O2 Delivery O2 Flow Rate FiO2 10/12/16 08:00 87 16 10/12/16 08:00 97.5 156/95 94 Room Air Telemetry Rhythm: Sinus Rhythm Height (Feet): 5 Height (Inches): 5.00 Weight (Kilograms): 78.900 General General Appearance: Alert, Orientated x 3, Cooperative Eyes (Brief) Eyes: FOUND: EOMI, PERRL, NOT FOUND: scleral icterus Neck (Brief) Neck: NOT FOUND: JVD, adenopathy Respiratory (Brief) Respiratory: FOUND: clear all house, equal bilaterally, wheezes, NOT FOUND: rales Cardiovascular (Brief) Cardiac: FOUND: regular rate, regular rhythm, NOT FOUND: pedal edema Abdomen (Brief) Abdominal: FOUND: distended, soft, NOT FOUND: tender Integumentary (Brief) Integumentary: FOUND: dry, warm, NOT FOUND: rash Psychiatric (Brief) Psychiatric: FOUND: alert, attentive, normal affect, oriented Laboratory Laboratory Laboratory Tests 10/11/16 03:59 10/12/16 04:05 Laboratory Tests 10/11/16 03:59 10/12/16 04:05 Microbiology Microbiology Cultures from wound reviewed, E. Faecalis and staph, covered by current regimen (dapto/unasyn) Assessment & Plan Problems: (1) Non-healing ulcer of foot Onset Date: ~ 09/20/2016 Status: Acute Qualifiers: Laterality: right Non-pressure ulcer stage: unspecified non-pressure ulcer stage Qualified Codes: L97.519 - Non-pressure chronic ulcer of other part of right foot with unspecified severity Assessment & Plan: Wound vac intact to left foot, on dapto/unasyn (2) KALPANA (acute kidney injury) Status: Acute Assessment & Plan: Not POA, secondary to ATN (3) Diabetes mellitus type II, uncontrolled Status: Chronic Qualifiers: Diabetes mellitus complication status: with skin complications Diabetes mellitus complication detail: with foot ulcer Assessment & Plan: Hemoglobin A-1 >15% on arrival (4) Hyperglycemia Status: Acute (5) HTN (hypertension) Status: Chronic (6) Nausea & vomiting Status: Acute Qualifiers: Vomiting type: unspecified Vomiting Intractability: unspecified Qualified Codes: R11.2 - Nausea with vomiting, unspecified Assessment & Plan: ? Secondary to KALPANA, improved with supportive care (7) Hypokalemia Status: Acute Assessment & Plan: Not POA, secondary to diuresis (8) 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 Status: Chronic (9) Hypomagnesemia Status: Acute Assessment & Plan: Secondary to diuresis Assessment 10/12/16 Stop bumex gtt today and transition to 1 mg BID, monitor daily weights, still up from admission Continue to encourage patient to drink and eat as she feels able, advance to DM diet today Creatinine stable at 3.7 today, ? plateau phase of ATN, continue to monitor daily No peripheral eosinophilia on CBC; no evidence of AIN causing KALPANA Repeat renal panel + CBC in AM as well as Mg for surveillance with diuresis Aggressive K replacement today and IV Mag sulfate repletion Continue with Unasyn and daptomycin for antimicrobial coverage. Wound culture with E. Faecalis and coag neg staph, responding to therapy. Continue to monitor blood sugars, Lantus 10 units at at bedtime and sliding scale insulin. Avoid nephrotoxins and renally dose meds given KALPANA Continued supportive care for nausea and pain. Ambulate in the jorge today with assistance. Plan/Intensity of Service Have independently interviewed and examined pt. Chart reviewed. Case discussed with nursing, CM, Dr Chowdhury and my FREELANCE WRITER. Care plan developed with my supervision; agree with above. Code Status Full Code Hospital Course Summary Disclaimer The hospital course summary below is not to be considered part of the above Progress Note. Hospital Course Summary 1. Diabetic foot ulcer acute present on admission: This is a significant wound at this point in time. Well start vancomycin, Zosyn, cultures were done by the ER, plain x-ray was reassuring for obvious osteomyelitis, consider MRI of the foot to better define the possibility of osteomyelitis. A wound care consult is indicated. Potential surgical evaluation would be indicated. There is drainage from the wound 2. Type 2 diabetes mellitus chronic present on admission: Poor control. Correctional plan. Adjust insulin as indicated. Patients sugars were significantly elevated on presentation, will monitor sugars carefully and utilize correctional plan aggressively. 3. Hypertension chronic present on admission: Patient is on an ARB and hydrochlorothiazide, will hold acutely overnight until sure blood pressure is stable. Restart in the morning and adjust as indicated. 4. Dehydration and acute present admission: IV fluids 5. Hyponatremia acute present on admission: Secondary to hypovolemia, IV fluids and repeat labs in the morning, additionally patients hyper-glycemia is contributing as well Day 2 patient with headache and most likely viral upper respiratory issues. Continuing antibiotics. Lovenox added issues not moving well today. Fioricet for the headache. 10/07/16 Creatinine continues to rise this morning up to 3.0. James catheter was placed this morning Renal sonogram is normal without evidence of mass, obstruction or hydronephrosis Vancomycin was stopped given continued rise in creatinine. Patient continues on Zosyn. Will need to evaluate antibiotic therapy moving forward. Given that we may need to cover for MRSA. Possible options include Teflaro, doxycycline. Will consult Dr Huang and ask her to see patient tomorrow for recommendations. Given increase loose stools a C-Diff stool sample was ordered Zofran and Phenergan as needed for nausea Continue to Monitor blood sugars, Humulin sliding scale Planning for surgical debridement of foot wound today by Dr Trenton Watson SQ daily for DVT prophylaxis Will recheck CBC and BMP tomorrow to follow blood counts, renal function and electrolytes. 10/08/16 Dr Huang saw patient this morning for recommendations regarding antimicrobial coverage and duration. Will evaluate recommendation once transcribed Vancomycin continues to be on hold. Random serum Vanco this morning was 26.4. Patient started on Unasyn 3g IV and daptomycin every 48 hours Unfortunately, creatinine continues to rise, and today it is 3.9. Will discuss further with Dr. Blood. May need to contact nephrology for recommendations. Urinary output continues to be adequate via James catheter. Total output yesterday, 1125ml, 850 ML overnight Continue need to encourage patient to advance oral intake If nausea is controlled. Monitor blood pressure as it has been intermittently mildly elevated. Recheck CBC and BMP tomorrow to follow blood counts, renal function and electrolytes. We'll discuss further plan of care with Dr. Blood 10/09/16 Overall appears to feel better today with less nausea. She is tolerating PO intake. Milk Truck Driver has slightly decreased today to 3.7. Weight is up 10 KG from admission. Bumex drip is started at 0.5mg/hr for fluid motivation Continue with daptomycin and Unasyn IV for antimicrobial coverage. Surgical wound culture results review. Gram-positive cocci, culture and sensitivity pending. IV fluid continues with D5W with 2 amps of sodium bicarb at 100 ML/hr Continue to monitor blood sugars as they have been elevated. Will add Lantus 10 units at HS, in addition to Humulin R sliding scale insulin Continue to monitor labs carefully. We'll recheck CBC and BMP tomorrow morning to follow blood counts, renal function and electrolytes. 10/10/16 Did speak with nursing staff regarding limiting odors. Patient is exposed to as well as limiting time./Teaching in patient's room. Continue Encourage patient to drink and eat as she feels able. Creatinine remains elevated at 3.7. Continue with Bumex drip for fluid motivation. Urinary output yesterday was 2400 ML and weight has trended down 2 kilograms. Potassium did decrease this morning down to 2.6. IV supplementation was initiated. Continue with Unasyn and daptomycin for antimicrobial coverage. Wound culture does reveal gram-positive cocci, sensitivities pending. Continue to monitor blood sugars, Lantus 10 units at at bedtime and sliding scale insulin. Will recheck CBC and BMP tomorrow morning 10/11/16 Stop IVF this morning and continue on bumex gtt today Continue to encourage patient to drink and eat as she feels able Creatinine remains elevated at 3.9 today (from 3.7); presumably ATN and nonoliguric, continue bumex as above Check diff with CBC in AM to ensure no evidence of AIN/no eosinophilia Repeat renal panel + CBC in AM as well as Mg for surveillance with diuresis Aggressive K replacement today, recheck this afternoon for surveillance Continue with Unasyn and daptomycin for antimicrobial coverage. Wound culture does reveal gram-positive cocci, will follow. Continue to monitor blood sugars, Lantus 10 units at at bedtime and sliding scale insulin. Avoid nephrotoxins and renally dose meds given KALPANA Continued supportive care for nausea and pain 10/12/16 Stop bumex gtt today and transition to 1 mg BID, monitor daily weights, still up from admission Continue to encourage patient to drink and eat as she feels able, advance to DM diet today Creatinine stable at 3.7 today, ? plateau phase of ATN, continue to monitor daily No peripheral eosinophilia on CBC; no evidence of AIN causing KALPANA Repeat renal panel + CBC in AM as well as Mg for surveillance with diuresis Aggressive K replacement today and IV Mag sulfate repletion Continue with Unasyn and daptomycin for antimicrobial coverage. Wound culture with E. Faecalis and coag neg staph, responding to therapy. Continue to monitor blood sugars, Lantus 10 units at at bedtime and sliding scale insulin. Avoid nephrotoxins and renally dose meds given KALPANA Continued supportive care for nausea and pain. Ambulate in the jorge today with assistance. KRYSTLE MCKINNEY MD Oct 12, 2016 10:04
[2016-10-12 12:00] VITALS: BP 162/87; PULSE 82; RESP 18; O2SAT 95
--- NOTE | 2016-10-12 14:00 | NUR ---
ACTIVITY PT'S 2ND WALK THIS SHIFT AFTER RECEIVING ENCOURAGEMENT FROM DR. MCKINNEY TO WALK MORE THROUGHOUT THE DAY. PT WILLING TO WALK A LITTLE FARTHER SECOND TIME. PT DENIED DISCOMFORT/DISCOMFORT WITH AMBULATION
[2016-10-12 16:00] VITALS: BP 163/90; PULSE 90; RESP 16; TEMP 97.2; O2SAT 92
[2016-10-12] MEDS: AMLODIPINE 5 MG TABLET PO SCH (17:19)
[2016-10-12 20:00] VITALS: BP 154/85; PULSE 93; RESP 20; TEMP 99.8; O2SAT 92
[2016-10-12] MEDS: INSULIN GLARGINE 100 UNIT/ML SQ SCH (21:22)
[2016-10-12] MEDS: BUMETANIDE 1 MG/4 ML INJECTION IV SCH (21:24)
[2016-10-12] MEDS: HYDROCODONE/APAP 5 mg/325 mg TABLET PO PRN (21:44)
[2016-10-13] VITALS (8 sets, daily range): BP systolic 131–155; BP diastolic 75–86; PULSE 79–97; RESP 18; TEMP 96.8–99.3; O2SAT 93–98
[2016-10-13 05:50] LABS: ALBUMIN 2.9 G/DL (3.5-5.0); ANION GAP 9 MEQ/L (5-15); BUN/CREATININE RATIO 9 RATIO (6-26); CALCIUM 8.2 MG/DL (8.4-10.2); CHLORIDE 94 MEQ/L (98-107); CO2 - CARBON DIOXIDE 31 MEQ/L (22-30); CREATININE 3.9 MG/DL (0.7-1.2); GLOMERULAR FILTRATION RATE 12; GLUCOSE 143 MG/DL (65-110); MAGNESIUM 2.1 MG/DL (1.6-2.3); PHOSPHORUS 4.3 MG/DL (2.5-4.5); POTASSIUM 4.6 MEQ/L (3.6-5); SODIUM 134 MEQ/L (134-144)
--- NOTE | 2016-10-13 06:17 | NUR ---
SHIFT SUMMARY PT ALERT AND ORIENTEDX3, DENIES C/P,N/V AND SOA. PT HAS DENIED PAIN THROUGHOUT MOST OF THE SHIFT, HEADACHE COMPLAINTS AT THIS TIME. PT VITAL SIGNS STABLE ON ROOM AIR, PT HAS BEEN AFEBRILE ON THIS SHIFT. PT HAS SLEPT THROUGH THE NIGHT. WILL CONTINUE TO MONITOR.
[2016-10-13] MEDS: ACETAMINOPHEN 325 MG TABLET PO PRN ×2 (06:31→21:22)
--- NOTE | 2016-10-13 08:37 | NUR ---
IDavid. PHYSICIAN DR. CHE IN ROOM FOR PT EVAL/ASSMT
--- NOTE | 2016-10-13 08:56 | PNPDOC ---
Subjective Date DATE: 10/13/16 TIME: 08:42 Subjective She reports some fever last night and chills. The highest temp charted was 99.8. She reports that over the weekend, she's lost some of the weight she gained. She reports that she's gained 18 pounds. Her nausea and vomiting is improved and she's eating better. She reports that she threw up a little this am, but thinks it's because she had to wait awhile for her pain med for headache. Reports her foot seems to be doing ok. Some loose stools, but denies any BM for 1-2 days. Objective Vital Signs: RN Vital Signs have been reviewed: Yes, Temperature: 98.1, Source : Oral, Heart Rate: 85, Respiratory Rate: 18, BP: 155/85, Pulse Oximetry: 93 Height (Feet): 5 Height (Inches): 5.00 General: FOUND: Alert, NOT FOUND: Acute Distress Skin: NOT FOUND: Rash HEENT: FOUND NC/AT Neck: NOT FOUND: Meningismus Cardiac: FOUND: Regular Rate/Rhythm, NOT FOUND: Murmur, Pitting Edema Lungs: FOUND: Clear to Auscultation, Symmetrical Expansion, NOT FOUND: Respiratory Distress Abdomen: FOUND: Soft : FOUND: James Extremities: NOT FOUND Edema (Bilateral Lower Extremitites) Neurological: FOUND A/A/A, NOT FOUND Focal Deficits Psychological: FOUND Intact and Appropriate Wound R foot, wound VAC on, RLE wrapped IV Site: PICC (RUE) Antbiotics Daptomycin since 10/09, Unasyn since 10/09 (previously Vanco and Zosyn since 10/03) Laboratory Laboratory Tests 10/11/16 03:59 10/12/16 04:05 Laboratory Tests 10/13/16 04:02 Cultures Specimen: [id number] Collected: 10/07/16-1447 Received: 10/07/16-[address]: ELIDA CHOWDHURY MD Source: FOOTSURNafisa RIGHT Procedure Result Verified MICROBIOLOGY GRAM STAIN Final 10/07/16-1551 RESULT FEW GRAM POSITIVE COCCI FEW NEUTROPHILS SURGICAL SITE CULTURE Final 10/11/16-808 Organism 1 ENTEROCOC FAECALIS - (GROUP D) Organism 2 COAG NEGATIVE STAPHYLOCOCCUS ORGANISM COMMENT: SENSITIVITY NOT PERFORMED Cherie CUMMINS(D) INTERP HANNY ------ --------- AMPICILLIN S <=2 DOXYCYCLINE I 8 LINEZOLID S 1 VANCOMYCIN S 1 Reviewed: Medications, Consult/Progress Notes Assessment & Plan Assessment 1. Diabetic foot infection plantar aspect right first metatarsal head status post irrigation and debridement down to fascia over sesamoid bone on October 07, 2016, cultures with E. faecalis sensitive to Ampicillin, and CoNS. 2. Diabetes mellitus type 2, non-insulin dependent, poorly controlled with a hemoglobin A1c greater than 15. 3. Hypertension. 4. Depression. 5. Acute kidney injury, secondary to ATN. 6. Intermittent N/V. Plan/Intensity of Service I will simplify her antibiotics and d/c the Unasyn. The Daptomycin will cover both isolates recovered. I'm planning to treat her with six weeks of IV antibiotics from the date of surgery, so her antibiotics would go through . Wound care per Dr. Chowdhury. ABRAHAM CHE MD Oct 13, 2016 08:47
[2016-10-13] MEDS: DAPTOMYCIN IV SCH (08:59)
[2016-10-13] MEDS: BUMETANIDE 1 MG/4 ML INJECTION IV SCH ×2 (08:59→21:16)
[2016-10-13] MEDS: NORMAL SALINE IV SCH (08:59)
[2016-10-13] MEDS: POTASSIUM CHLORIDE 20 MEQ TABLET PO SCH ×2 (09:00→12:00)
[2016-10-13] MEDS: AMLODIPINE 5 MG TABLET PO SCH (09:03)
[2016-10-13] MEDS: HEPARIN SUB-Q 5,000 unit/0.5ml vial SQ SCH ×2 (09:36→21:17)
--- NOTE | 2016-10-13 11:04 | NUR ---
CM CM VISITED WITH PT. CM DISCUSSED D/C PLAN FOR PT. PT WILL RETURN HOME WITH [facility]. PT WOULD LIKE TO COME TO [facility] [place] TO GET ABT Q 48 HOURS. PT WILL HAVE HOME WOUND VAC AND WILL FOLLOWUP WITH WOUND CLINIC WEEKLY IN ADDITION TO HOME HEALTH. PT IS AWARE TO CONTACT CM IF NEEDS ARISE.
[2016-10-13] MEDS: INSULIN REGULAR 100 UNIT/ML SQ PRN ×3 (11:26→21:22)
--- NOTE | 2016-10-13 11:50 | PNPDOC ---
VIKAS SQUIRES V ASSEMBLY LEAD PERSON 10/13/16 1150: Subjective Date DATE: 10/13/16 TIME: 11:44 Subjective Rebecca is seen today in follow up. She is sitting up in the chair today and appears much stronger and alert. She is pleased that she is finally able to keep down liquids and some bland food. She also has been able to ambulate in the jorge. Denies abdominal pain or nausea. Continues to have zamora cath and bowels are moving daily. Weight continues to trend down. Objective Vital Signs Vital signs Vital Signs Date Time Temp Pulse Resp B/P Pulse Ox O2 Delivery O2 Flow Rate FiO2 10/13/16 11:13 96.8 82 18 153/75 94 Room Air Telemetry Rhythm: Sinus Rhythm Height (Feet): 5 Height (Inches): 5.00 Weight (Kilograms): 77.360 General General Appearance: Alert, Orientated x 3, Cooperative, No Acute Distress Eyes (Brief) Eyes: FOUND: EOMI ENMT (Brief) ENMT: FOUND: mucosa moist, normal dentition, NOT FOUND: pharnyx erythema Neck (Brief) Neck: FOUND: midline, NOT FOUND: adenopathy, carotid bruits, tracheal deviation Respiratory (Brief) Respiratory: FOUND: clear all house, equal bilaterally, NOT FOUND: wheezes Cardiovascular (Brief) Cardiac: FOUND: regular rate, regular rhythm, NOT FOUND: murmur, pedal edema Capillary Refill: <2 sec Abdomen (Brief) Abdominal: FOUND: BS normo active x4, soft, NOT FOUND: distended, tender Lymphatic (Brief) Lymphatic: NOT FOUND: adenopathy Musculoskeletal (Brief) Musculoskeletal: NOT FOUND: tenderness Integumentary (Brief) Integumentary: FOUND: dry, pink, warm Neurologic (Brief) Neurological: FOUND: cranial 2-12 intact Psychiatric (Brief) Psychiatric: FOUND: alert, attentive, normal affect, oriented Laboratory Laboratory Laboratory Tests 10/12/16 04:05 10/13/16 04:02 Laboratory Tests 10/12/16 04:05 Assessment & Plan Problems: (1) Non-healing ulcer of foot Onset Date: ~ 09/20/2016 Status: Acute Qualifiers: Laterality: right Non-pressure ulcer stage: unspecified non-pressure ulcer stage Qualified Codes: L97.519 - Non-pressure chronic ulcer of other part of right foot with unspecified severity Assessment & Plan: Wound vac intact to left foot, on dapto/unasyn (2) KALPANA (acute kidney injury) Status: Acute Assessment & Plan: Not POA, secondary to ATN (3) Diabetes mellitus type II, uncontrolled Status: Chronic Qualifiers: Diabetes mellitus complication status: with skin complications Diabetes mellitus complication detail: with foot ulcer Assessment & Plan: Hemoglobin A-1 >15% on arrival (4) Hyperglycemia Status: Acute (5) HTN (hypertension) Status: Chronic (6) Nausea & vomiting Status: Acute Qualifiers: Vomiting type: unspecified Vomiting Intractability: unspecified Qualified Codes: R11.2 - Nausea with vomiting, unspecified Assessment & Plan: ? Secondary to KALPANA, improved with supportive care (7) Hypokalemia Status: Acute Assessment & Plan: Not POA, secondary to diuresis (8) 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 Status: Chronic (9) Hypomagnesemia Status: Acute Assessment & Plan: Secondary to diuresis Plan/Intensity of Service 10/17/16 Overall appears much better this morning. Is more alert and feeling better. Continue to encourage PO intake. Appreciate Dr Huang recommendations for detention wound treatment. She will continue with IV Daptomycin every 2 days for 6 weeks, through 11/17/16. Patient verbalizes that she is planning to come to outpatient infusion center once discharged. Continue with wound care for management of wound Vac. Ribbon Winder continues to be elevated at 3.9. Hopeful for improvement as she is not taking in PO fluids. Continue to encourage ambulation for strengthening. Recheck CBC, CMP,Magnesium, CK tomorrow morning Code Status Full Code Hospital Course Summary Disclaimer The hospital course summary below is not to be considered part of the above Progress Note. Hospital Course Summary 1. Diabetic foot ulcer acute present on admission: This is a significant wound at this point in time. Well start vancomycin, Zosyn, cultures were done by the ER, plain x-ray was reassuring for obvious osteomyelitis, consider MRI of the foot to better define the possibility of osteomyelitis. A wound care consult is indicated. Potential surgical evaluation would be indicated. There is drainage from the wound 2. Type 2 diabetes mellitus chronic present on admission: Poor control. Correctional plan. Adjust insulin as indicated. Patients sugars were significantly elevated on presentation, will monitor sugars carefully and utilize correctional plan aggressively. 3. Hypertension chronic present on admission: Patient is on an ARB and hydrochlorothiazide, will hold acutely overnight until sure blood pressure is stable. Restart in the morning and adjust as indicated. 4. Dehydration and acute present admission: IV fluids 5. Hyponatremia acute present on admission: Secondary to hypovolemia, IV fluids and repeat labs in the morning, additionally patients hyper-glycemia is contributing as well Day 2 patient with headache and most likely viral upper respiratory issues. Continuing antibiotics. Lovenox added issues not moving well today. Fioricet for the headache. 10/07/16 Creatinine continues to rise this morning up to 3.0. Zamora catheter was placed this morning Renal sonogram is normal without evidence of mass, obstruction or hydronephrosis Vancomycin was stopped given continued rise in creatinine. Patient continues on Zosyn. Will need to evaluate antibiotic therapy moving forward. Given that we may need to cover for MRSA. Possible options include Teflaro, doxycycline. Will consult Dr Huang and ask her to see patient tomorrow for recommendations. Given increase loose stools a C-Diff stool sample was ordered Zofran and Phenergan as needed for nausea Continue to Monitor blood sugars, Humulin sliding scale Planning for surgical debridement of foot wound today by Dr Trenton Watson SQ daily for DVT prophylaxis Will recheck CBC and BMP tomorrow to follow blood counts, renal function and electrolytes. 10/08/16 Dr Huang saw patient this morning for recommendations regarding antimicrobial coverage and duration. Will evaluate recommendation once transcribed Vancomycin continues to be on hold. Random serum Vanco this morning was 26.4. Patient started on Unasyn 3g IV and daptomycin every 48 hours Unfortunately, creatinine continues to rise, and today it is 3.9. Will discuss further with Dr. Blood. May need to contact nephrology for recommendations. Urinary output continues to be adequate via Zamora catheter. Total output yesterday, 1125ml, 850 ML overnight Continue need to encourage patient to advance oral intake If nausea is controlled. Monitor blood pressure as it has been intermittently mildly elevated. Recheck CBC and BMP tomorrow to follow blood counts, renal function and electrolytes. We'll discuss further plan of care with Dr. Blood 10/09/16 Overall appears to feel better today with less nausea. She is tolerating PO intake. Ribbon Winder has slightly decreased today to 3.7. Weight is up 10 KG from admission. Bumex drip is started at 0.5mg/hr for fluid motivation Continue with daptomycin and Unasyn IV for antimicrobial coverage. Surgical wound culture results review. Gram-positive cocci, culture and sensitivity pending. IV fluid continues with D5W with 2 amps of sodium bicarb at 100 ML/hr Continue to monitor blood sugars as they have been elevated. Will add Lantus 10 units at HS, in addition to Humulin R sliding scale insulin Continue to monitor labs carefully. We'll recheck CBC and BMP tomorrow morning to follow blood counts, renal function and electrolytes. 10/10/16 Did speak with nursing staff regarding limiting odors. Patient is exposed to as well as limiting time./Teaching in patient's room. Continue Encourage patient to drink and eat as she feels able. Creatinine remains elevated at 3.7. Continue with Bumex drip for fluid motivation. Urinary output yesterday was 2400 ML and weight has trended down 2 kilograms. Potassium did decrease this morning down to 2.6. IV supplementation was initiated. Continue with Unasyn and daptomycin for antimicrobial coverage. Wound culture does reveal gram-positive cocci, sensitivities pending. Continue to monitor blood sugars, Lantus 10 units at at bedtime and sliding scale insulin. Will recheck CBC and BMP tomorrow morning 10/11/16 Stop IVF this morning and continue on bumex gtt today Continue to encourage patient to drink and eat as she feels able Creatinine remains elevated at 3.9 today (from 3.7); presumably ATN and nonoliguric, continue bumex as above Check diff with CBC in AM to ensure no evidence of AIN/no eosinophilia Repeat renal panel + CBC in AM as well as Mg for surveillance with diuresis Aggressive K replacement today, recheck this afternoon for surveillance Continue with Unasyn and daptomycin for antimicrobial coverage. Wound culture does reveal gram-positive cocci, will follow. Continue to monitor blood sugars, Lantus 10 units at at bedtime and sliding scale insulin. Avoid nephrotoxins and renally dose meds given KALPANA Continued supportive care for nausea and pain 10/12/16 Stop bumex gtt today and transition to 1 mg BID, monitor daily weights, still up from admission Continue to encourage patient to drink and eat as she feels able, advance to DM diet today Creatinine stable at 3.7 today, ? plateau phase of ATN, continue to monitor daily No peripheral eosinophilia on CBC; no evidence of AIN causing KALPANA Repeat renal panel + CBC in AM as well as Mg for surveillance with diuresis Aggressive K replacement today and IV Mag sulfate repletion Continue with Unasyn and daptomycin for antimicrobial coverage. Wound culture with E. Faecalis and coag neg staph, responding to therapy. Continue to monitor blood sugars, Lantus 10 units at at bedtime and sliding scale insulin. Avoid nephrotoxins and renally dose meds given KALPANA Continued supportive care for nausea and pain. Ambulate in the jorge today with assistance. 10/17/16 Overall appears much better this morning. Is more alert and feeling better. Continue to encourage PO intake. Appreciate Dr Huang recommendations for detention wound treatment. She will continue with IV Daptomycin every 2 days for 6 weeks, through 11/17/16. Patient verbalizes that she is planning to come to outpatient infusion center once discharged. Continue with wound care for management of wound Vac. Ribbon Winder continues to be elevated at 3.9. Hopeful for improvement as she is not taking in PO fluids. Continue to encourage ambulation for strengthening. Recheck CBC, CMP,Magnesium, CK tomorrow morning DANIA BLOOD MD 10/13/16 1441: Assessment & Plan Plan/Intensity of Service Have independently interviewed and examined pt. Chart reviewed. Case discussed with CM and my ASSEMBLY LEAD PERSON. Care plan developed with my supervision; agree with above. Doing much better today. Nausea resolved over the weekend. Ab to eat much better. Passing flatus, little stool. Breathing well. Urine output increased, weight decreasing. Ambulating well. Minimal pain. Lungs: clear CV: regular AB: Soft nt/nd +BS MSE: awake alert appropriate Plan: Continue with Daptomycin for antimicrobial coverage. Continue Wound-Vac. Will stop oral potassium as potassium level increased - continue to monitor. Start insulin 5 units with meals to help glycemic control-adjust as needed. Fasting sugars well controlled - continue Lantus 10 units at night. Continue IV Bumex-may needed to d/c in near future as weight approaching baseline. Creatinine still elevated. Not ready for discharge until see interval improvement of renal status. Continue with supportive care. VIKAS SQUIRES APRN Oct 13, 2016 11:50 DANIA BLOOD MD Oct 13, 2016 14:41
--- NOTE | 2016-10-13 16:40 | PDWOUND ---
Wound Documentation Wound Management Wound : Location Modifier: Right Wound Location: Foot Wound Type: Surgical Wound Dressing Frequency: three times per week Wound Duration: two weeks Wound Dressing Status: FOUND: Dry & Intact, Moist Wound Drainage Amount: Minimal Wound Drainage Description: Serous Wound Drainage Odor: None/Absent Wound General Appearance: FOUND Reddened, FOUND Unapproximated, FOUND Well Approximated Wound Bed: gran pink, slough Periwound Description: Bright Red, Other (denuded) Wound Length (cm): 2.2 Wound Width (cm): 1.8 Wound Depth (cm): 0.6 Exposed: subtissue Wound Debridement: sharp Wound Cleanser: NS, wound cleanser Wound Solution/Irrigant: Saline Irrigant Wound Packing Type: FOUND: Black Foam Wound Primary Dressing Type: Gauze Pads, Gauze Roll/Wrap, Aquacel AG Wound Tunneling : Tunneling Location (o'clock): 11 Comments Wound team here to change wound vac dressing to right 1st met head ulcer, without incident. Patient education provided on wound vac and dressing care: leave dressings intact in between wound care appointments, vac should be running continuously at all times. Patient verbalizes understanding. Encouraged patient to have family bring in walking boot she reports having at home for Dr Chowdhury to see and may order a cam walker if the home boot isn't appropriate. DARRICK MIMS RN Oct 13, 2016 16:39
--- NOTE | 2016-10-13 17:00 | NUR ---
DIABETES EDUCATION Discussed basics of foot care. Will cover more on foot care and insulin types on 10/14/16. Asking good questions. Plans to meet with dietitian tomorrow.
[2016-10-13] MEDS: INSULIN LISPRO 100 UNIT/ML SQ SCH ×2 (17:15→17:32)
--- NOTE | 2016-10-13 18:17 | NUR ---
Summary Pts VS have been stable on RA. Pt has denied pain this shift. Pt has been up to recliner for most of the day and for meals. Pt has ambulated in the hallway with gait belt and walker X3 times today and tolerated well. Wound care team did a wound vac change today to the right foot. No leaks noted. No drainage from the wound vac.
[2016-10-13] MEDS: INSULIN GLARGINE 100 UNIT/ML SQ SCH (21:15)
--- NOTE | 2016-10-13 22:00 | NUR ---
PRN PT WAS GIVEN TYLENOL FOR MILD TEMP. PT ALERT AND ORIENTED. WILL CONTINUE TO MONITOR.
[2016-10-14] VITALS (7 sets, daily range): BP systolic 124–170; BP diastolic 68–95; PULSE 80–93; RESP 16–18; TEMP 96.2–99.7; O2SAT 91–95
[2016-10-14 05:07] LABS: BASOPHILS % (AUTO) 0.3 % (0-2); EOSINOPHILS # (AUTO) 0.2 T/MM3 (0-0.5); EOSINOPHILS % (AUTO) 2.9 % (0-4); HCT - HEMATOCRIT 32.9 % (36-46); HGB - HEMOGLOBIN 10.8 GM/DL (12-16); IMMATURE GRANULOCYTE # (AUTO) 0.02 T/MM3 (0.00-0.03); IMMATURE GRANULOCYTE % (AUTO) 0.3 % (0.0-0.5); LYMPHOCYTES # (AUTO) 2.2 T/MM3 (1-4.8); LYMPHOCYTES % (AUTO) 28.8 % (23-45); MEAN CORPUSCULAR HGB 31.3 UUG (26-34); MEAN CORPUSCULAR HGB CONC(MCHC 32.8 GM/DL (31-37); MEAN CORPUSCULAR VOLUME 95.4 UM3 (80-100); MEAN PLATELET VOLUME 9.1 UM3 (9.4-12.4); MONOCYTES # (AUTO) 0.9 T/MM3 (0-0.8); MONOCYTES % (AUTO) 11.4 % (0-9.0); NEUTROPHILS #(AUTO)-ABSOLUTE 4.2 T/MM3 (1.8-7.7); NEUTROPHILS % (AUTO) 56.3 % (33-66); RED BLOOD COUNT 3.45 M/MM3 (4.00-5.20); WBC - WHITE BLOOD COUNT 7.5 T/MM3 (4.5-11.0)
[2016-10-14 05:21] LABS: ALBUMIN 2.9 G/DL (3.5-5.0); ALBUMIN/GLOBULIN RATIO 0.8 RATIO (1.1-2.2); ALKALINE PHOSPHATASE 76 U/L (38-126); ALT (SGPT) 20 U/L (9-52); ANION GAP 8 MEQ/L (5-15); AST (SGOT) 16 U/L (14-36); BUN/CREATININE RATIO 12 RATIO (6-26); CALCIUM 8.4 MG/DL (8.4-10.2); CHLORIDE 94 MEQ/L (98-107); CK - CPK < 20 U/L (30-135); CO2 - CARBON DIOXIDE 30 MEQ/L (22-30); CREATININE 3.8 MG/DL (0.7-1.2); GLOMERULAR FILTRATION RATE 12; GLUCOSE 230 MG/DL (65-110); MAGNESIUM 2.1 MG/DL (1.6-2.3); PHOSPHORUS 5.5 MG/DL (2.5-4.5); POTASSIUM 4.6 MEQ/L (3.6-5); SODIUM 132 MEQ/L (134-144); TOTAL PROTEIN 6.4 G/DL (6.3-8.2)
[2016-10-14] MEDS: INSULIN REGULAR 100 UNIT/ML SQ PRN ×4 (05:58→21:12)
--- NOTE | 2016-10-14 06:22 | NUR ---
SUMMARY PT ALERT AND ORIENTED. ABLE TO VOICE NEEDS TO THE STAFFS. PT WAS GIVEN TYLENOL ONCE THIS SHIFT FOR ELEVATED TEMP. TEMP WITHIN RANGE AT THE MOMENT. NPWT ON THE RIGHT FOOT INTACT AND FUNCTIONING WELL. DENIED ANY PAIN. PT INCONTINENT OF BOWELS. CHRISTENSEN INTACT FOR URINARY RETENTION.
[2016-10-14] MEDS: INSULIN LISPRO 100 UNIT/ML SQ SCH ×3 (10:13→17:54)
[2016-10-14] MEDS: HEPARIN SUB-Q 5,000 unit/0.5ml vial SQ SCH ×2 (10:14→21:12)
[2016-10-14] MEDS: BUMETANIDE 1 MG/4 ML INJECTION IV SCH ×2 (10:14→21:11)
[2016-10-14] MEDS: AMLODIPINE 5 MG TABLET PO SCH (10:15)
--- NOTE | 2016-10-14 10:19 | NUR ---
RENAL DOSING: DAPTOMYCIN Today's SCr = 3.8mg/dl. Calculated CrCl = 16.7ml/min. Daptomycin regimen at 500mg IV [id number].
[2016-10-14] MEDS ORDERED: POTASSIUM CHLORIDE 20 MEQ TABLET PO ONE (12:30)
--- NOTE | 2016-10-14 14:09 | PNPDOC ---
Subjective Date DATE: 10/14/16 TIME: 13:55 Subjective F/U: Non-healing right foot ulcer, Type II DM, KALPANA Improving. More active-tolerating activities well without instability. Ambulation increasing. Nausea resolved-eating better. Bowels moving. Breathing well. No chest pain. Fasting sugar elevated this am. Creatinine about the same at 3.8. Had 2775cc urine out yesterday. Objective Vital Signs Vital signs Vital Signs Date Time Temp Pulse Resp B/P Pulse Ox O2 Delivery O2 Flow Rate FiO2 10/14/16 11:56 96.2 93 18 162/87 91 Room Air Telemetry Rhythm: Sinus Rhythm Height (Feet): 5 Height (Inches): 5.00 Weight (Kilograms): 76.400 General General Appearance: Alert, Orientated x 3, Overweight, Well Nourished, Well Developed, Cooperative, Looks Stated Age Eyes (Brief) Eyes: FOUND: EOMI, PERRL, NOT FOUND: scleral icterus ENMT (Brief) ENMT: FOUND: hearing intact, mucosa moist (No thrush ) Neck (Brief) Neck: FOUND: midline, NOT FOUND: nuchal rigidity, spasm Respiratory (Brief) Respiratory: FOUND: clear all house, equal bilaterally, other (No distress ), NOT FOUND: rales, wheezes Cardiovascular (Brief) Cardiac: FOUND: regular rate, regular rhythm Abdomen (Brief) Abdominal: FOUND: BS normo active x4, soft, NOT FOUND: distended, tender (Brief) Female: FOUND: other (James in place ) Extremities (Brief) Extremity : Side: Bilateral Extremity: leg Extremity Finding: NOT FOUND: edema Musculoskeletal (Brief) Musculoskeletal: FOUND: extremities move equally, NOT FOUND: deformity, spasm, tenderness Integumentary (Brief) Integumentary: FOUND: dry, other (wound vac on right foot), warm Neurologic (Brief) Neurological: FOUND: cranial 2-12 intact, motor (Intact ) Psychiatric (Brief) Psychiatric: FOUND: alert, attentive, normal affect, oriented Laboratory Laboratory Laboratory Tests 10/13/16 04:02 10/14/16 04:07 Laboratory Tests 10/14/16 04:07 Assessment & Plan Problems: (1) Non-healing ulcer of foot Onset Date: ~ 09/20/2016 Status: Acute Qualifiers: Laterality: right Non-pressure ulcer stage: unspecified non-pressure ulcer stage Qualified Codes: L97.519 - Non-pressure chronic ulcer of other part of right foot with unspecified severity Assessment & Plan: Wound vac intact to left foot, on dapto/unasyn (2) KALPANA (acute kidney injury) Status: Acute Assessment & Plan: Not POA, secondary to ATN (3) Diabetes mellitus type II, uncontrolled Status: Chronic Qualifiers: Diabetes mellitus complication status: with skin complications Diabetes mellitus complication detail: with foot ulcer Assessment & Plan: Hemoglobin A-1 >15% on arrival (4) Hyperglycemia Status: Acute (5) HTN (hypertension) Status: Chronic (6) Nausea & vomiting Status: Acute Qualifiers: Vomiting type: unspecified Vomiting Intractability: unspecified Qualified Codes: R11.2 - Nausea with vomiting, unspecified Assessment & Plan: ? Secondary to KALPANA, improved with supportive care (7) Hypokalemia Status: Acute Assessment & Plan: Not POA, secondary to diuresis (8) 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 Status: Chronic (9) Hypomagnesemia Status: Acute Assessment & Plan: Secondary to diuresis Plan/Intensity of Service Continue Daptomycin for antimicrobial coverage. Currently dosed q 48 hours due to renal status. Will need to continue through 11/17/16. Continue with wound vac. Increase Lantus to 12 units at night and mealtime insulin to 6 units with meal. Will start bladder retraining. Encourage activities. Recheck BMP in am to monitor potassium and creatinine. Recheck CBC in am due to leg wound. DVT Prophylaxis: SQ Heparin Code Status Full Code Hospital Course Summary Disclaimer The hospital course summary below is not to be considered part of the above Progress Note. Hospital Course Summary 1. Diabetic foot ulcer acute present on admission: This is a significant wound at this point in time. Well start vancomycin, Zosyn, cultures were done by the ER, plain x-ray was reassuring for obvious osteomyelitis, consider MRI of the foot to better define the possibility of osteomyelitis. A wound care consult is indicated. Potential surgical evaluation would be indicated. There is drainage from the wound 2. Type 2 diabetes mellitus chronic present on admission: Poor control. Correctional plan. Adjust insulin as indicated. Patients sugars were significantly elevated on presentation, will monitor sugars carefully and utilize correctional plan aggressively. 3. Hypertension chronic present on admission: Patient is on an ARB and hydrochlorothiazide, will hold acutely overnight until sure blood pressure is stable. Restart in the morning and adjust as indicated. 4. Dehydration and acute present admission: IV fluids 5. Hyponatremia acute present on admission: Secondary to hypovolemia, IV fluids and repeat labs in the morning, additionally patients hyper-glycemia is contributing as well Day 2 patient with headache and most likely viral upper respiratory issues. Continuing antibiotics. Lovenox added issues not moving well today. Fioricet for the headache. 10/07/16 Creatinine continues to rise this morning up to 3.0. James catheter was placed this morning Renal sonogram is normal without evidence of mass, obstruction or hydronephrosis Vancomycin was stopped given continued rise in creatinine. Patient continues on Zosyn. Will need to evaluate antibiotic therapy moving forward. Given that we may need to cover for MRSA. Possible options include Teflaro, doxycycline. Will consult Dr Huang and ask her to see patient tomorrow for recommendations. Given increase loose stools a C-Diff stool sample was ordered Zofran and Phenergan as needed for nausea Continue to Monitor blood sugars, Humulin sliding scale Planning for surgical debridement of foot wound today by Dr Trenton Watson SQ daily for DVT prophylaxis Will recheck CBC and BMP tomorrow to follow blood counts, renal function and electrolytes. 10/08/16 Dr Huang saw patient this morning for recommendations regarding antimicrobial coverage and duration. Will evaluate recommendation once transcribed Vancomycin continues to be on hold. Random serum Vanco this morning was 26.4. Patient started on Unasyn 3g IV and daptomycin every 48 hours Unfortunately, creatinine continues to rise, and today it is 3.9. Will discuss further with Dr. Blood. May need to contact nephrology for recommendations. Urinary output continues to be adequate via James catheter. Total output yesterday, 1125ml, 850 ML overnight Continue need to encourage patient to advance oral intake If nausea is controlled. Monitor blood pressure as it has been intermittently mildly elevated. Recheck CBC and BMP tomorrow to follow blood counts, renal function and electrolytes. We'll discuss further plan of care with Dr. Blood 10/09/16 Overall appears to feel better today with less nausea. She is tolerating PO intake. [employer] has slightly decreased today to 3.7. Weight is up 10 KG from admission. Bumex drip is started at 0.5mg/hr for fluid motivation Continue with daptomycin and Unasyn IV for antimicrobial coverage. Surgical wound culture results review. Gram-positive cocci, culture and sensitivity pending. IV fluid continues with D5W with 2 amps of sodium bicarb at 100 ML/hr Continue to monitor blood sugars as they have been elevated. Will add Lantus 10 units at HS, in addition to Humulin R sliding scale insulin Continue to monitor labs carefully. We'll recheck CBC and BMP tomorrow morning to follow blood counts, renal function and electrolytes. 10/10/16 Did speak with nursing staff regarding limiting odors. Patient is exposed to as well as limiting time./Teaching in patient's room. Continue Encourage patient to drink and eat as she feels able. Creatinine remains elevated at 3.7. Continue with Bumex drip for fluid motivation. Urinary output yesterday was 2400 ML and weight has trended down 2 kilograms. Potassium did decrease this morning down to 2.6. IV supplementation was initiated. Continue with Unasyn and daptomycin for antimicrobial coverage. Wound culture does reveal gram-positive cocci, sensitivities pending. Continue to monitor blood sugars, Lantus 10 units at at bedtime and sliding scale insulin. Will recheck CBC and BMP tomorrow morning 10/11/16 Stop IVF this morning and continue on bumex gtt today Continue to encourage patient to drink and eat as she feels able Creatinine remains elevated at 3.9 today (from 3.7); presumably ATN and nonoliguric, continue bumex as above Check diff with CBC in AM to ensure no evidence of AIN/no eosinophilia Repeat renal panel + CBC in AM as well as Mg for surveillance with diuresis Aggressive K replacement today, recheck this afternoon for surveillance Continue with Unasyn and daptomycin for antimicrobial coverage. Wound culture does reveal gram-positive cocci, will follow. Continue to monitor blood sugars, Lantus 10 units at at bedtime and sliding scale insulin. Avoid nephrotoxins and renally dose meds given KALPANA Continued supportive care for nausea and pain 10/12/16 Stop bumex gtt today and transition to 1 mg BID, monitor daily weights, still up from admission Continue to encourage patient to drink and eat as she feels able, advance to DM diet today Creatinine stable at 3.7 today, ? plateau phase of ATN, continue to monitor daily No peripheral eosinophilia on CBC; no evidence of AIN causing KALPANA Repeat renal panel + CBC in AM as well as Mg for surveillance with diuresis Aggressive K replacement today and IV Mag sulfate repletion Continue with Unasyn and daptomycin for antimicrobial coverage. Wound culture with E. Faecalis and coag neg staph, responding to therapy. Continue to monitor blood sugars, Lantus 10 units at at bedtime and sliding scale insulin. Avoid nephrotoxins and renally dose meds given KALPANA Continued supportive care for nausea and pain. Ambulate in the jorge today with assistance. 10/17/16 Overall appears much better this morning. Is more alert and feeling better. Continue to encourage PO intake. Appreciate Dr Huang recommendations for penitentiary wound treatment. She will continue with IV Daptomycin every 2 days for 6 weeks, through 11/17/16. Patient verbalizes that she is planning to come to outpatient infusion center once discharged. Continue with wound care for management of wound Vac. [employer] Workman continues to be elevated at 3.9. Hopeful for improvement as she is not taking in PO fluids. Continue to encourage ambulation for strengthening. Recheck CBC, CMP,Magnesium, CK tomorrow morning 10/14 Improving. More active-tolerating activities well without instability. Ambulation increasing. Nausea resolved-eating better. Bowels moving. Breathing well. No chest pain. Fasting sugar elevated this am. Creatinine about the same at 3.8. Had 2775cc urine out yesterday. Weight decreasing. Continue Daptomycin for antimicrobial coverage. Currently dosed q 48 hours due to renal status. Will need to continue through 11/17/16. Continue with wound vac. Increase Lantus to 12 units at night and mealtime insulin to 6 units with meal. Will start bladder retraining. Encourage activities. Recheck BMP in am to monitor potassium and creatinine. Recheck CBC in am due to leg wound. DNAIA BLOOD MD Oct 14, 2016 14:02
--- NOTE | 2016-10-14 15:38 | NUR ---
WBAT status: Per Dr. Chowdhury, pt is WBAT R foot with post op shoe. Post op shoe has been ordered through materials.
--- NOTE | 2016-10-14 16:11 | NUR ---
Dietary Consult R/T Hgb A1C >15 Diet Order: [address] obtained typical days intake. Pt states she works 5am - 10:30 pm 2 days per week and 8 am - 6 pm the other days of the week. Pt states she usually eats 3 meals and 3 snacks per day. Pt occ drinks juice with her breakfast. Pt states she often has to eat while working because there is not anyone to relieve her. Pt states she had missed her diabetes meds at times too. RD provided and reviewed handouts on "Healthy Eating 1 2 3", [facility] "Food Choices on your plate" [facility], "My Food Plan" with emphasis on carb counting. Pt states she has support from her brother and sister in law who are both diabetic and have been through Diabetes classes. Pt verbalized understanding and willingness to follow. RD provided contact information for questions RD available at ext [phone]
--- NOTE | 2016-10-14 16:39 | NUR ---
DIABETES EDUCATION Addendum: 10/14/16 at 1650 by ANABELLE STEWARD RN Discussed rapid-acting and long-acting insulin: timing of doses and storage. Reviewed Aysha Nordisk foot care handout. Left foot has dry skin, callus on plantar 5th metatarsal head and fissure on heel. Diminished sensation with monofilament testing. Discussed importance of looking at feet daily, wearing shoes even when walking in the house and applying lotion to dry skin and callus / crack daily. Right foot dressing in place. Verbalized understanding of importance.
--- NOTE | 2016-10-14 18:59 | NUR ---
SHIFT SUMMARY; Out of bed most of the day. Sits in chair. Worked with Physical Therapy alot today. Has an orthopedic shoe she is to wear on right foot when she walks. Wounds on right foot dressed and covered; Wound Vac connected. Eats well. Maintains 1800 consistant carb diet. Scheduled Insulin dose increased to 6 units before meals. James cathater intact; drains clear yellow urine to dependant drainage bag. Denies pain.
[2016-10-14] MEDS: INSULIN GLARGINE 100 UNIT/ML SQ SCH (21:12)
--- NOTE | 2016-10-14 22:46 | NUR ---
SUMMARY 1900-NOW HAS BEEN IN BED. FLUSHED IN FACE, VERY COLD UNTIL ABOUT 2129. TEMP 99.7 MOVING SELF IN BED. DENIED NEEDS FOR PAIN MEDS. WOUND VAC WAS OFF AND NOTICED DURING BEDSIDE REPORT. IT MUST HAVE BEEN TURNED OFF WHEN PT WENT TO THERAPY PER DAY RN.
[2016-10-15 00:10] VITALS: BP 143/86; PULSE 92; RESP 16; TEMP 98.6; O2SAT 92
[2016-10-15 04:04] VITALS: BP 148/86; PULSE 87; RESP 16; TEMP 98.3; O2SAT 91
--- NOTE | 2016-10-15 04:52 | NUR ---
summary this nurse assumed care at 2300. room air. vss. up x1. zamora patent, draining; adequate urine output. wound vac to right foot. boot to right foot when ambulating. denies pain, n/v, soa. rested well this shift. no new concerns.
[2016-10-15 05:23] LABS: BASOPHILS % (AUTO) 0.2 % (0-2); EOSINOPHILS # (AUTO) 0.2 T/MM3 (0-0.5); EOSINOPHILS % (AUTO) 2.2 % (0-4); HCT - HEMATOCRIT 32.5 % (36-46); HGB - HEMOGLOBIN 10.8 GM/DL (12-16); IMMATURE GRANULOCYTE # (AUTO) 0.01 T/MM3 (0.00-0.03); IMMATURE GRANULOCYTE % (AUTO) 0.1 % (0.0-0.5); LYMPHOCYTES # (AUTO) 2.1 T/MM3 (1-4.8); MEAN CORPUSCULAR HGB 31.5 UUG (26-34); MEAN CORPUSCULAR HGB CONC(MCHC 33.2 GM/DL (31-37); MEAN CORPUSCULAR VOLUME 94.8 UM3 (80-100); MONOCYTES % (AUTO) 11.7 % (0-9.0); NEUTROPHILS % (AUTO) 60.8 % (33-66); RED BLOOD COUNT 3.43 M/MM3 (4.00-5.20); WBC - WHITE BLOOD COUNT 8.2 T/MM3 (4.5-11.0)
[2016-10-15 05:35] LABS: ANION GAP 9 MEQ/L (5-15); BUN/CREATININE RATIO 12 RATIO (6-26); CALCIUM 8.6 MG/DL (8.4-10.2); CHLORIDE 93 MEQ/L (98-107); CO2 - CARBON DIOXIDE 31 MEQ/L (22-30); CREATININE 3.9 MG/DL (0.7-1.2); GLOMERULAR FILTRATION RATE 12; GLUCOSE 157 MG/DL (65-110); POTASSIUM 4.2 MEQ/L (3.6-5); SODIUM 133 MEQ/L (134-144)
[2016-10-15 07:41] VITALS: BP 147/86; PULSE 81; RESP 16; TEMP 97.1; O2SAT 93
[2016-10-15] MEDS: INSULIN LISPRO 100 UNIT/ML SQ SCH ×3 (08:36→17:44)
--- NOTE | 2016-10-15 08:44 | PNPDOC ---
Subjective Date DATE: 10/15/16 TIME: 08:37 Subjective She reports that she's been walking without problems. Her nausea has improved and she's eating better. She reports getting fevers and chills in the evenings. Documented temps are up to 99.7 but not anything higher. Her UO has been good - 2850mL yesterday. Objective Vital Signs: RN Vital Signs have been reviewed: Yes, Temperature: 97.1, Source : Oral, Heart Rate: 81, Respiratory Rate: 16, BP: 147/86, Pulse Oximetry: 93 Height (Feet): 5 Height (Inches): 5.00 General: FOUND: Alert, NOT FOUND: Acute Distress Skin: NOT FOUND: Rash HEENT: FOUND NC/AT Neck: NOT FOUND: Meningismus Cardiac: FOUND: Regular Rate/Rhythm, NOT FOUND: Murmur, Pitting Edema Lungs: FOUND: Clear to Auscultation, Symmetrical Expansion, NOT FOUND: Respiratory Distress Abdomen: FOUND: Non-tender, Soft : FOUND: James Extremities: NOT FOUND Edema (Bilateral Lower Extremitites) Neurological: FOUND A/A/A, NOT FOUND Focal Deficits Psychological: FOUND Intact and Appropriate Wound R foot wound covered, VAC on IV Site: PICC (RUE) Antbiotics Daptomycin since 10/09, Unasyn since 10/09- (previously Vanco and Zosyn started 10/03) Laboratory Laboratory Tests 10/15/16 03:59 Laboratory Tests 10/15/16 03:59 Cultures Wound cultures 10/07: E. faecalis sensitive to Amp, CoNS Reviewed: Medications, Consult/Progress Notes Discussed With: Sophie Martins APRN Assessment & Plan Assessment 1. Diabetic foot infection plantar aspect right first metatarsal head status post irrigation and debridement down to fascia over sesamoid bone on October 07, 2016, cultures with E. faecalis sensitive to Ampicillin, and CoNS. 2. Diabetes mellitus type 2, non-insulin dependent, poorly controlled with a hemoglobin A1c greater than 15. 3. Hypertension. 4. Depression. 5. Acute kidney injury, secondary to ATN. 6. Intermittent N/V, improving. 7. Subjective fever and chills. Plan/Intensity of Service Continue Daptomycin, dosed q48 hour based on renal function. Planning six weeks of IV antibiotics from the date of surgery, so her antibiotics would go through 11/17/16. Wound care per Dr. Chowdhury. Will discuss how her wound looks with wound RN. I recommended that she take tylenol when she feels like she's having fever and/or chills. ABRAHAM CHE MD Oct 15, 2016 08:40
[2016-10-15] MEDS: AMLODIPINE 5 MG TABLET PO SCH (10:08)
[2016-10-15] MEDS: BUMETANIDE 1 MG/4 ML INJECTION IV SCH (10:09)
[2016-10-15] MEDS: HEPARIN SUB-Q 5,000 unit/0.5ml vial SQ SCH ×2 (11:23→21:08)
[2016-10-15] MEDS: DAPTOMYCIN IV SCH (11:24)
[2016-10-15] MEDS: NORMAL SALINE IV SCH (11:24)
[2016-10-15] MEDS: INSULIN REGULAR 100 UNIT/ML SQ PRN ×3 (12:21→21:13)
[2016-10-15 15:48] VITALS: BP 137/82; PULSE 86; RESP 16; TEMP 97.6; O2SAT 94
--- NOTE | 2016-10-15 15:50 | PNPDOC ---
Subjective Date DATE: 10/15/16 TIME: 15:43 Subjective F/U: Non-healing right foot ulcer, Type II DM, KALPANA Doing well. Senses when bladder full with bladder retraining. Eating well. No nausea or ab pain. Stools stable. Breathing well. Ambulating well with walker; not feeling dizzy or unsteady when up. Notes episodes of chills at times. Objective Vital Signs Vital signs Vital Signs Date Time Temp Pulse Resp B/P Pulse Ox O2 Delivery O2 Flow Rate FiO2 10/15/16 08:44 81 16 93 10/15/16 07:41 97.1 147/86 Room Air Telemetry Rhythm: Sinus Rhythm Height (Feet): 5 Height (Inches): 5.00 Weight (Kilograms): 75.700 General General Appearance: Alert, Orientated x 3, Overweight, Well Nourished, Well Developed, Cooperative, Looks Stated Age Eyes (Brief) Eyes: FOUND: EOMI, PERRL, NOT FOUND: scleral icterus Neck (Brief) Neck: FOUND: midline, NOT FOUND: nuchal rigidity, spasm Respiratory (Brief) Respiratory: FOUND: clear all house, equal bilaterally, NOT FOUND: rales, wheezes Cardiovascular (Brief) Cardiac: FOUND: pedal edema (Trace ), regular rate, regular rhythm Abdomen (Brief) Abdominal: FOUND: BS normo active x4, soft, NOT FOUND: distended, tender (Brief) Female: FOUND: other (James in place ) Extremities (Brief) Extremity : Side: Bilateral Extremity: leg Extremity Finding: FOUND: edema (Trace ) Musculoskeletal (Brief) Musculoskeletal: FOUND: extremities move equally, NOT FOUND: deformity, loss of motion, spasm, tenderness Neurologic (Brief) Neurological: FOUND: cranial 2-12 intact, motor (Intact ) Psychiatric (Brief) Psychiatric: FOUND: alert, attentive, normal affect, oriented Laboratory Laboratory Laboratory Tests 10/14/16 04:07 10/15/16 03:59 Laboratory Tests 10/14/16 04:07 10/15/16 03:59 Assessment & Plan Problems: (1) Non-healing ulcer of foot Onset Date: ~ 09/20/2016 Status: Acute Qualifiers: Laterality: right Non-pressure ulcer stage: unspecified non-pressure ulcer stage Qualified Codes: L97.519 - Non-pressure chronic ulcer of other part of right foot with unspecified severity Assessment & Plan: Wound vac intact to left foot, on dapto/unasyn (2) KALPANA (acute kidney injury) Status: Acute Assessment & Plan: Not POA, secondary to ATN (3) Diabetes mellitus type II, uncontrolled Status: Chronic Qualifiers: Diabetes mellitus complication status: with skin complications Diabetes mellitus complication detail: with foot ulcer Assessment & Plan: Hemoglobin A-1 >15% on arrival (4) Hyperglycemia Status: Acute (5) HTN (hypertension) Status: Chronic (6) Nausea & vomiting Status: Resolved Qualifiers: Vomiting type: unspecified Vomiting Intractability: unspecified Qualified Codes: R11.2 - Nausea with vomiting, unspecified Assessment & Plan: ? Secondary to KALPANA, improved with supportive care (7) Hypokalemia Status: Resolved Assessment & Plan: Not POA, secondary to diuresis (8) 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 Status: Chronic (9) Hypomagnesemia Status: Resolved Assessment & Plan: Secondary to diuresis Plan/Intensity of Service Will d/c James cath. Decrease Bumex to 1mg IV daily. Continue Daptomycin, dosed q48 hour based on renal function-planning six weeks of IV antibiotics from the date of surgery, so her antibiotics would go through 11/17/16. Continue wound care per Dr. Chowdhury. Encourage continued ambulation. Continue with current insulin regimen. Recheck BMP in am to monitor renal status and potassium. Will recheck CBC in am due to foot wound and wound vac. Time spent with pt care 35 minutes. DVT Prophylaxis: SQ Heparin Code Status Full Code Hospital Course Summary Disclaimer The hospital course summary below is not to be considered part of the above Progress Note. Hospital Course Summary 1. Diabetic foot ulcer acute present on admission: This is a significant wound at this point in time. Well start vancomycin, Zosyn, cultures were done by the ER, plain x-ray was reassuring for obvious osteomyelitis, consider MRI of the foot to better define the possibility of osteomyelitis. A wound care consult is indicated. Potential surgical evaluation would be indicated. There is drainage from the wound 2. Type 2 diabetes mellitus chronic present on admission: Poor control. Correctional plan. Adjust insulin as indicated. Patients sugars were significantly elevated on presentation, will monitor sugars carefully and utilize correctional plan aggressively. 3. Hypertension chronic present on admission: Patient is on an ARB and hydrochlorothiazide, will hold acutely overnight until sure blood pressure is stable. Restart in the morning and adjust as indicated. 4. Dehydration and acute present admission: IV fluids 5. Hyponatremia acute present on admission: Secondary to hypovolemia, IV fluids and repeat labs in the morning, additionally patients hyper-glycemia is contributing as well Day 2 patient with headache and most likely viral upper respiratory issues. Continuing antibiotics. Lovenox added issues not moving well today. Fioricet for the headache. 10/07/16 Creatinine continues to rise this morning up to 3.0. James catheter was placed this morning Renal sonogram is normal without evidence of mass, obstruction or hydronephrosis Vancomycin was stopped given continued rise in creatinine. Patient continues on Zosyn. Will need to evaluate antibiotic therapy moving forward. Given that we may need to cover for MRSA. Possible options include Teflaro, doxycycline. Will consult Dr Huang and ask her to see patient tomorrow for recommendations. Given increase loose stools a C-Diff stool sample was ordered Zofran and Phenergan as needed for nausea Continue to Monitor blood sugars, Humulin sliding scale Planning for surgical debridement of foot wound today by Dr Trenton Watson SQ daily for DVT prophylaxis Will recheck CBC and BMP tomorrow to follow blood counts, renal function and electrolytes. 10/08/16 Dr Huang saw patient this morning for recommendations regarding antimicrobial coverage and duration. Will evaluate recommendation once transcribed Vancomycin continues to be on hold. Random serum Vanco this morning was 26.4. Patient started on Unasyn 3g IV and daptomycin every 48 hours Unfortunately, creatinine continues to rise, and today it is 3.9. Will discuss further with Dr. Blood. May need to contact nephrology for recommendations. Urinary output continues to be adequate via James catheter. Total output yesterday, 1125ml, 850 ML overnight Continue need to encourage patient to advance oral intake If nausea is controlled. Monitor blood pressure as it has been intermittently mildly elevated. Recheck CBC and BMP tomorrow to follow blood counts, renal function and electrolytes. We'll discuss further plan of care with Dr. Blood 10/09/16 Overall appears to feel better today with less nausea. She is tolerating PO intake. Loom Stop Checker has slightly decreased today to 3.7. Weight is up 10 KG from admission. Bumex drip is started at 0.5mg/hr for fluid motivation Continue with daptomycin and Unasyn IV for antimicrobial coverage. Surgical wound culture results review. Gram-positive cocci, culture and sensitivity pending. IV fluid continues with D5W with 2 amps of sodium bicarb at 100 ML/hr Continue to monitor blood sugars as they have been elevated. Will add Lantus 10 units at HS, in addition to Humulin R sliding scale insulin Continue to monitor labs carefully. We'll recheck CBC and BMP tomorrow morning to follow blood counts, renal function and electrolytes. 10/10/16 Did speak with nursing staff regarding limiting odors. Patient is exposed to as well as limiting time./Teaching in patient's room. Continue Encourage patient to drink and eat as she feels able. Creatinine remains elevated at 3.7. Continue with Bumex drip for fluid motivation. Urinary output yesterday was 2400 ML and weight has trended down 2 kilograms. Potassium did decrease this morning down to 2.6. IV supplementation was initiated. Continue with Unasyn and daptomycin for antimicrobial coverage. Wound culture does reveal gram-positive cocci, sensitivities pending. Continue to monitor blood sugars, Lantus 10 units at at bedtime and sliding scale insulin. Will recheck CBC and BMP tomorrow morning 10/11/16 Stop IVF this morning and continue on bumex gtt today Continue to encourage patient to drink and eat as she feels able Creatinine remains elevated at 3.9 today (from 3.7); presumably ATN and nonoliguric, continue bumex as above Check diff with CBC in AM to ensure no evidence of AIN/no eosinophilia Repeat renal panel + CBC in AM as well as Mg for surveillance with diuresis Aggressive K replacement today, recheck this afternoon for surveillance Continue with Unasyn and daptomycin for antimicrobial coverage. Wound culture does reveal gram-positive cocci, will follow. Continue to monitor blood sugars, Lantus 10 units at at bedtime and sliding scale insulin. Avoid nephrotoxins and renally dose meds given KALPANA Continued supportive care for nausea and pain 10/12/16 Stop bumex gtt today and transition to 1 mg BID, monitor daily weights, still up from admission Continue to encourage patient to drink and eat as she feels able, advance to DM diet today Creatinine stable at 3.7 today, ? plateau phase of ATN, continue to monitor daily No peripheral eosinophilia on CBC; no evidence of AIN causing KALPANA Repeat renal panel + CBC in AM as well as Mg for surveillance with diuresis Aggressive K replacement today and IV Mag sulfate repletion Continue with Unasyn and daptomycin for antimicrobial coverage. Wound culture with E. Faecalis and coag neg staph, responding to therapy. Continue to monitor blood sugars, Lantus 10 units at at bedtime and sliding scale insulin. Avoid nephrotoxins and renally dose meds given KALPANA Continued supportive care for nausea and pain. Ambulate in the jorge today with assistance. 10/17/16 Overall appears much better this morning. Is more alert and feeling better. Continue to encourage PO intake. Appreciate Dr Huang recommendations for fci wound treatment. She will continue with IV Daptomycin every 2 days for 6 weeks, through 11/17/16. Patient verbalizes that she is planning to come to outpatient infusion center once discharged. Continue with wound care for management of wound Vac. Loom Stop Checker continues to be elevated at 3.9. Hopeful for improvement as she is not taking in PO fluids. Continue to encourage ambulation for strengthening. Recheck CBC, CMP,Magnesium, CK tomorrow morning 10/14 Improving. More active-tolerating activities well without instability. Ambulation increasing. Nausea resolved-eating better. Bowels moving. Breathing well. No chest pain. Fasting sugar elevated this am. Creatinine about the same at 3.8. Had 2775cc urine out yesterday. Weight decreasing. Continue Daptomycin for antimicrobial coverage. Currently dosed q 48 hours due to renal status. Will need to continue through 11/17/16. Continue with wound vac. Increase Lantus to 12 units at night and mealtime insulin to 6 units with meal. Will start bladder retraining. Encourage activities. Recheck BMP in am to monitor potassium and creatinine. Recheck CBC in am due to leg wound. 10/15 Doing well. Senses when bladder full with bladder retraining. Eating well. No nausea or ab pain. Stools stable. Breathing well. Ambulating well with walker; not feeling dizzy or unsteady when up. Notes episodes of chills at times. Creatinine 3.9. Will d/c James cath. Decrease Bumex to 1mg IV daily. Continue Daptomycin, dosed q48 hour based on renal function-planning six weeks of IV antibiotics from the date of surgery, so her antibiotics would go through 11/17/16. Continue wound care per Dr. Chowdhury. Encourage continued ambulation. Continue with current insulin regimen. Recheck BMP in am to monitor renal status and potassium. Will recheck CBC in am due to foot wound and wound vac. DANIA BLOOD MD Oct 15, 2016 15:46
--- NOTE | 2016-10-15 16:45 | NUR ---
shift summary Feeling better. ambulated in jorge with gait belt walker and post op shoe sat by windows for about 1 hr. and then up in chair most of the afternoon.will mattie Walters
--- NOTE | 2016-10-15 16:50 | NUR ---
DIABETES EDUCATION Reviewed time actions of insulin. Verbalized understanding that Lantus is to be given every night. Discussed taking Humalog up to 15 minutes prior to the meal. If she skips the meal, do not give meal-time insulin. Son arrived during session to visit before leaving on trip out of state. CDE will return on 10/17/15 with plan to discuss home schedule and sick day plan. CDE can be reached at [phone].
[2016-10-15] MEDS: VENLAFAXINE XR 75 MG CAPSULE PO SCH (17:44)
--- NOTE | 2016-10-15 18:21 | NUR ---
Dietary Consult R/T Hgb A1C > 15 RD met with pt today to review carb counting and menu planning. Pt discussed various menu choices she had thought of. RD encouraged pt to call with questions RD available at ext [phone]
[2016-10-15 20:26] VITALS: BP 162/90; PULSE 93; RESP 16; TEMP 98.1; O2SAT 92
[2016-10-15] MEDS: INSULIN GLARGINE 100 UNIT/ML SQ SCH (21:08)
[2016-10-15] MEDS: ACETAMINOPHEN 325 MG TABLET PO PRN (21:14)
[2016-10-15 23:40] VITALS: BP 154/83; PULSE 92; RESP 16; TEMP 97.4; O2SAT 94
[2016-10-16 03:57] VITALS: BP 159/99; PULSE 79; RESP 16; TEMP 96.1; O2SAT 90
[2016-10-16 05:04] LABS: BASOPHILS % (AUTO) 0.3 % (0-2); EOSINOPHILS # (AUTO) 0.1 T/MM3 (0-0.5); EOSINOPHILS % (AUTO) 1.7 % (0-4); HCT - HEMATOCRIT 32.6 % (36-46); HGB - HEMOGLOBIN 10.7 GM/DL (12-16); IMMATURE GRANULOCYTE # (AUTO) 0.01 T/MM3 (0.00-0.03); IMMATURE GRANULOCYTE % (AUTO) 0.1 % (0.0-0.5); LYMPHOCYTES # (AUTO) 1.8 T/MM3 (1-4.8); LYMPHOCYTES % (AUTO) 26.2 % (23-45); MEAN CORPUSCULAR HGB CONC(MCHC 32.8 GM/DL (31-37); MEAN CORPUSCULAR VOLUME 94.5 UM3 (80-100); MEAN PLATELET VOLUME 8.8 UM3 (9.4-12.4); MONOCYTES # (AUTO) 0.6 T/MM3 (0-0.8); MONOCYTES % (AUTO) 8.9 % (0-9.0); NEUTROPHILS #(AUTO)-ABSOLUTE 4.3 T/MM3 (1.8-7.7); NEUTROPHILS % (AUTO) 62.8 % (33-66); RED BLOOD COUNT 3.45 M/MM3 (4.00-5.20); WBC - WHITE BLOOD COUNT 6.9 T/MM3 (4.5-11.0)
--- NOTE | 2016-10-16 05:04 | NUR ---
summary pt remains on room air. vss. c/o headache, prn tylenol given x1, see emar. patient had one episode of emesis this shift, but denies nausea. wound vac to right foot, no drainage. dressing c/d/i. patient has voided x2 since zamora dc'd. she is very dependent, wants everything done for her. randolph picc flushes, aspirates. no additional concerns.
[2016-10-16 05:19] LABS: ANION GAP 11 MEQ/L (5-15); BUN/CREATININE RATIO 13 RATIO (6-26); CALCIUM 8.9 MG/DL (8.4-10.2); CHLORIDE 92 MEQ/L (98-107); CO2 - CARBON DIOXIDE 31 MEQ/L (22-30); CREATININE 3.9 MG/DL (0.7-1.2); GLOMERULAR FILTRATION RATE 12; GLUCOSE 167 MG/DL (65-110); POTASSIUM 4.2 MEQ/L (3.6-5); SODIUM 134 MEQ/L (134-144)
[2016-10-16] MEDS: ONDANSETRON 4mg/2ml INJECTION IV PRN (05:52)
[2016-10-16] MEDS: INSULIN REGULAR 100 UNIT/ML SQ PRN ×4 (05:52→21:44)
[2016-10-16 07:45] VITALS: BP 143/90; PULSE 74; RESP 16; TEMP 98.7; O2SAT 93
[2016-10-16] MEDS: INSULIN LISPRO 100 UNIT/ML SQ SCH ×3 (08:11→18:09)
[2016-10-16] MEDS ORDERED: BUMETANIDE 1 MG/4 ML INJECTION IV SCH (09:00)
--- NOTE | 2016-10-16 10:29 | NUR ---
CM CM IN TO VISIT WITH PT. SHE IS ALERT AND ORIENTED. SHE PLANS TO DC HOME WITH MEI PUENTES. SHE WILL DO IV ABX AT [facility]. SHE WILL COME TO WOUND CENTER ONCE PER WEEK FOR WOUND CARE. PT IS GIVEN UPDATED CM CONTACT INFORMATION. SHE IS MADE AWARE THAT DC IS POSSIBLE ON THURSDAY. Addendum: 10/16/16 at 1031 by ESTRELLA SANCHEZ RN Amended: Links added.
[2016-10-16] MEDS: VENLAFAXINE XR 75 MG CAPSULE PO SCH (11:50)
[2016-10-16] MEDS: HEPARIN SUB-Q 5,000 unit/0.5ml vial SQ SCH ×2 (11:51→20:06)
[2016-10-16] MEDS: AMLODIPINE 5 MG TABLET PO SCH (11:51)
--- NOTE | 2016-10-16 14:30 | NUR ---
DIABETES EDUCATION Discussed home schedule for dosing Humalog with meals and Lantus at 9 pm. Suggested testing schedule fasting and 2 hours after meals. Call doctor for blood sugar > 250 mg/dl x 2 tests in a row or less than 60 mg/dl. Reviewed hypoglycemia treatment. Instructed on sick day care with CDC article. Verbalized understanding. Out-patient brochure and business card provided. CDE may be reached at extension [phone]. Addendum: 10/17/16 at 0946 by ANABELLE STEWARD RN Patient will need a prescription for Heekya Next test strips at discharge.
[2016-10-16 15:14] VITALS: BP 154/85; PULSE 82; TEMP 97; O2SAT 95
--- NOTE | 2016-10-16 16:05 | PDWOUND ---
Wound Documentation Wound Management Wound : Location Modifier: Right Wound Location: Foot Wound Type: Surgical Wound Dressing Frequency: three times per week Wound Duration: two weeks Wound Dressing Status: FOUND: Dry & Intact Wound Drainage Amount: Minimal Wound Drainage Description: Serous Wound Drainage Odor: None/Absent Wound General Appearance: FOUND Unapproximated Wound Bed: gran pink Periwound Description: Bright Red, Other (denuded) Wound Length (cm): 1.8 Wound Width (cm): 1.8 Wound Depth (cm): 0.2 Exposed: subtissue Wound Debridement: sharp Wound Cleanser: NS, wound cleanser Wound Solution/Irrigant: Saline Irrigant Wound Packing Type: FOUND: Black Foam Comments Changed wound vac today, pt tolerated well. HALEGIH DAMON RN Oct 16, 2016 16:05
--- NOTE | 2016-10-16 16:08 | NUR ---
comfort Denies any n/v at present.ate fair ambulated in jorge. wound clinic here and wound vac changed.
--- NOTE | 2016-10-16 17:12 | PNPDOC ---
Subjective Date DATE: 10/16/16 TIME: 17:03 Subjective F/U: Non-healing right foot ulcer, Type II DM, KALPANA Had episode on nausea and vomiting overnight. Doing better with oral intake today. Urinating well with cath removed - no pain or burning. Stools moving well. Breathing without problems. Ambulating well. Still notes feeling feverish at night. Objective Vital Signs Vital signs Vital Signs Date Time Temp Pulse Resp B/P Pulse Ox O2 Delivery O2 Flow Rate FiO2 10/16/16 15:14 97.0 82 154/85 95 Room Air 10/16/16 07:45 16 Telemetry Rhythm: Sinus Rhythm Height (Feet): 5 Height (Inches): 5.00 Weight (Kilograms): 73.500 General General Appearance: Alert, Orientated x 3, Overweight, Well Nourished, Well Developed, Cooperative, Looks Stated Age Eyes (Brief) Eyes: FOUND: EOMI, PERRL, NOT FOUND: scleral icterus ENMT (Brief) ENMT: FOUND: hearing intact, mucosa moist Neck (Brief) Neck: FOUND: midline, NOT FOUND: nuchal rigidity, spasm Respiratory (Brief) Respiratory: FOUND: clear all house, equal bilaterally, NOT FOUND: rales, wheezes Cardiovascular (Brief) Cardiac: FOUND: regular rate, regular rhythm, NOT FOUND: pedal edema Abdomen (Brief) Abdominal: FOUND: BS normo active x4, soft, NOT FOUND: distended, tender Extremities (Brief) Extremity : Side: Bilateral Extremity: leg Extremity Finding: NOT FOUND: edema Musculoskeletal (Brief) Musculoskeletal: FOUND: extremities move equally, NOT FOUND: deformity, loss of motion, spasm, tenderness Integumentary (Brief) Integumentary: FOUND: dry, other (Wound vac on right LE ), warm Neurologic (Brief) Neurological: FOUND: cranial 2-12 intact, motor (Intact ) Psychiatric (Brief) Psychiatric: FOUND: alert, attentive, normal affect, oriented Laboratory Laboratory Laboratory Tests 10/15/16 03:59 10/16/16 03:55 Laboratory Tests 10/15/16 03:59 10/16/16 03:55 Assessment & Plan Problems: (1) Non-healing ulcer of foot Onset Date: ~ 09/20/2016 Status: Acute Qualifiers: Laterality: right Non-pressure ulcer stage: unspecified non-pressure ulcer stage Qualified Codes: L97.519 - Non-pressure chronic ulcer of other part of right foot with unspecified severity Assessment & Plan: Wound vac intact to left foot, on Daptomycin (2) KALPANA (acute kidney injury) Status: Acute Assessment & Plan: Not POA, secondary to ATN (3) Diabetes mellitus type II, uncontrolled Status: Chronic Qualifiers: Diabetes mellitus complication status: with skin complications Diabetes mellitus complication detail: with foot ulcer Assessment & Plan: Hemoglobin A-1 >15% on arrival (4) Hyperglycemia Status: Acute (5) HTN (hypertension) Status: Chronic (6) Nausea & vomiting Status: Resolved Qualifiers: Vomiting type: unspecified Vomiting Intractability: unspecified Qualified Codes: R11.2 - Nausea with vomiting, unspecified Assessment & Plan: ? Secondary to KALPANA, improved with supportive care (7) Hypokalemia Status: Resolved Assessment & Plan: Not POA, secondary to diuresis (8) 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 Status: Chronic (9) Hypomagnesemia Status: Resolved Assessment & Plan: Secondary to diuresis Plan/Intensity of Service D/C IV Bumex. Weight to baseline. Edema resolved. Continue Daptomycin, dosed q48 hour based on renal function-planning six weeks of IV antibiotics from the date of surgery, so her antibiotics would go through 11/17/16. Continue Wound Vac and wound care. Encourage continued ambulation. Blood sugars stable - will continue with current insulin schedule. Continue Norvasc for BP control - Home Valsartan not restarted due to KALPANA. Creatinine has stabilized at 3.9; clinically doing well with increased creatinine. Hope to see decrease of creatinine in next days to week. If not improving in 2 weeks, wound need formal nephrology evaluation. Recheck BMP in am to monitor renal status and potassium. Will recheck CBC in am due to foot wound and wound vac. Case discussed with CM and Dr Mendiola. Time spent with pt care 35 minutes. DVT Prophylaxis: SQ Heparin Code Status Full Code Hospital Course Summary Disclaimer The hospital course summary below is not to be considered part of the above Progress Note. Hospital Course Summary 1. Diabetic foot ulcer acute present on admission: This is a significant wound at this point in time. Well start vancomycin, Zosyn, cultures were done by the ER, plain x-ray was reassuring for obvious osteomyelitis, consider MRI of the foot to better define the possibility of osteomyelitis. A wound care consult is indicated. Potential surgical evaluation would be indicated. There is drainage from the wound 2. Type 2 diabetes mellitus chronic present on admission: Poor control. Correctional plan. Adjust insulin as indicated. Patients sugars were significantly elevated on presentation, will monitor sugars carefully and utilize correctional plan aggressively. 3. Hypertension chronic present on admission: Patient is on an ARB and hydrochlorothiazide, will hold acutely overnight until sure blood pressure is stable. Restart in the morning and adjust as indicated. 4. Dehydration and acute present admission: IV fluids 5. Hyponatremia acute present on admission: Secondary to hypovolemia, IV fluids and repeat labs in the morning, additionally patients hyper-glycemia is contributing as well Day 2 patient with headache and most likely viral upper respiratory issues. Continuing antibiotics. Lovenox added issues not moving well today. Fioricet for the headache. 10/07/16 Creatinine continues to rise this morning up to 3.0. James catheter was placed this morning Renal sonogram is normal without evidence of mass, obstruction or hydronephrosis Vancomycin was stopped given continued rise in creatinine. Patient continues on Zosyn. Will need to evaluate antibiotic therapy moving forward. Given that we may need to cover for MRSA. Possible options include Teflaro, doxycycline. Will consult Dr Huang and ask her to see patient tomorrow for recommendations. Given increase loose stools a C-Diff stool sample was ordered Zofran and Phenergan as needed for nausea Continue to Monitor blood sugars, Humulin sliding scale Planning for surgical debridement of foot wound today by Dr Chowdhury Lovelulú SQ daily for DVT prophylaxis Will recheck CBC and BMP tomorrow to follow blood counts, renal function and electrolytes. 10/08/16 Dr Huang saw patient this morning for recommendations regarding antimicrobial coverage and duration. Will evaluate recommendation once transcribed Vancomycin continues to be on hold. Random serum Vanco this morning was 26.4. Patient started on Unasyn 3g IV and daptomycin every 48 hours Unfortunately, creatinine continues to rise, and today it is 3.9. Will discuss further with Dr. Blood. May need to contact nephrology for recommendations. Urinary output continues to be adequate via James catheter. Total output yesterday, 1125ml, 850 ML overnight Continue need to encourage patient to advance oral intake If nausea is controlled. Monitor blood pressure as it has been intermittently mildly elevated. Recheck CBC and BMP tomorrow to follow blood counts, renal function and electrolytes. We'll discuss further plan of care with Dr. Blood 10/09/16 Overall appears to feel better today with less nausea. She is tolerating PO intake. Guard Supervisor has slightly decreased today to 3.7. Weight is up 10 KG from admission. Bumex drip is started at 0.5mg/hr for fluid motivation Continue with daptomycin and Unasyn IV for antimicrobial coverage. Surgical wound culture results review. Gram-positive cocci, culture and sensitivity pending. IV fluid continues with D5W with 2 amps of sodium bicarb at 100 ML/hr Continue to monitor blood sugars as they have been elevated. Will add Lantus 10 units at HS, in addition to Humulin R sliding scale insulin Continue to monitor labs carefully. We'll recheck CBC and BMP tomorrow morning to follow blood counts, renal function and electrolytes. 10/10/16 Did speak with nursing staff regarding limiting odors. Patient is exposed to as well as limiting time./Teaching in patient's room. Continue Encourage patient to drink and eat as she feels able. Creatinine remains elevated at 3.7. Continue with Bumex drip for fluid motivation. Urinary output yesterday was 2400 ML and weight has trended down 2 kilograms. Potassium did decrease this morning down to 2.6. IV supplementation was initiated. Continue with Unasyn and daptomycin for antimicrobial coverage. Wound culture does reveal gram-positive cocci, sensitivities pending. Continue to monitor blood sugars, Lantus 10 units at at bedtime and sliding scale insulin. Will recheck CBC and BMP tomorrow morning 10/11/16 Stop IVF this morning and continue on bumex gtt today Continue to encourage patient to drink and eat as she feels able Creatinine remains elevated at 3.9 today (from 3.7); presumably ATN and nonoliguric, continue bumex as above Check diff with CBC in AM to ensure no evidence of AIN/no eosinophilia Repeat renal panel + CBC in AM as well as Mg for surveillance with diuresis Aggressive K replacement today, recheck this afternoon for surveillance Continue with Unasyn and daptomycin for antimicrobial coverage. Wound culture does reveal gram-positive cocci, will follow. Continue to monitor blood sugars, Lantus 10 units at at bedtime and sliding scale insulin. Avoid nephrotoxins and renally dose meds given KALPANA Continued supportive care for nausea and pain 10/12/16 Stop bumex gtt today and transition to 1 mg BID, monitor daily weights, still up from admission Continue to encourage patient to drink and eat as she feels able, advance to DM diet today Creatinine stable at 3.7 today, ? plateau phase of ATN, continue to monitor daily No peripheral eosinophilia on CBC; no evidence of AIN causing KALPANA Repeat renal panel + CBC in AM as well as Mg for surveillance with diuresis Aggressive K replacement today and IV Mag sulfate repletion Continue with Unasyn and daptomycin for antimicrobial coverage. Wound culture with E. Faecalis and coag neg staph, responding to therapy. Continue to monitor blood sugars, Lantus 10 units at at bedtime and sliding scale insulin. Avoid nephrotoxins and renally dose meds given KALPANA Continued supportive care for nausea and pain. Ambulate in the jorge today with assistance. 10/17/16 Overall appears much better this morning. Is more alert and feeling better. Continue to encourage PO intake. Appreciate Dr Huang recommendations for [facility] wound treatment. She will continue with IV Daptomycin every 2 days for 6 weeks, through 11/17/16. Patient verbalizes that she is planning to come to outpatient infusion center once discharged. Continue with wound care for management of wound Vac. Guard Supervisor continues to be elevated at 3.9. Hopeful for improvement as she is not taking in PO fluids. Continue to encourage ambulation for strengthening. Recheck CBC, CMP,Magnesium, CK tomorrow morning 10/14 Improving. More active-tolerating activities well without instability. Ambulation increasing. Nausea resolved-eating better. Bowels moving. Breathing well. No chest pain. Fasting sugar elevated this am. Creatinine about the same at 3.8. Had 2775cc urine out yesterday. Weight decreasing. Continue Daptomycin for antimicrobial coverage. Currently dosed q 48 hours due to renal status. Will need to continue through 11/17/16. Continue with wound vac. Increase Lantus to 12 units at night and mealtime insulin to 6 units with meal. Will start bladder retraining. Encourage activities. Recheck BMP in am to monitor potassium and creatinine. Recheck CBC in am due to leg wound. 10/15 Doing well. Senses when bladder full with bladder retraining. Eating well. No nausea or ab pain. Stools stable. Breathing well. Ambulating well with walker; not feeling dizzy or unsteady when up. Notes episodes of chills at times. Creatinine 3.9. Will d/c James cath. Decrease Bumex to 1mg IV daily. Continue Daptomycin, dosed q48 hour based on renal function-planning six weeks of IV antibiotics from the date of surgery, so her antibiotics would go through 11/17/16. Continue wound care per Dr. Chowdhury. Encourage continued ambulation. Continue with current insulin regimen. Recheck BMP in am to monitor renal status and potassium. Will recheck CBC in am due to foot wound and wound vac. 10/16 Had episode on nausea and vomiting overnight. Doing better with oral intake today. Urinating well with cath removed - no pain or burning. Stools moving well. Breathing without problems. Ambulating well. Still notes feeling feverish at night. D/C IV Bumex. Weight to baseline. Edema resolved. Continue Daptomycin, dosed q48 hour based on renal function-planning six weeks of IV antibiotics from the date of surgery, so her antibiotics would go through 11/17/16. Continue Wound Vac and wound care. Encourage continued ambulation. Blood sugars stable - will continue with current insulin schedule. Continue Norvasc for BP control - Home Valsartan not restarted due to KALPANA. Creatinine has stabilized at 3.9; clinically doing well with increased creatinine. Hope to see decrease of creatinine in next days to week. If not improving in 2 weeks, wound need formal nephrology evaluation. Recheck BMP in am to monitor renal status and potassium. Will recheck CBC in am due to foot wound and wound vac. DANIA BLOOD MD Oct 16, 2016 17:06
--- NOTE | 2016-10-16 17:49 | NUR ---
voiding well bgm 130 walks well with walker and post op shoe.no n/v noted, continue to observe.
[2016-10-16 20:15] VITALS: BP 148/91; PULSE 86; RESP 16; TEMP 96.7; O2SAT 92
[2016-10-16] MEDS: ACETAMINOPHEN 325 MG TABLET PO PRN (20:16)
[2016-10-16] MEDS: INSULIN GLARGINE 100 UNIT/ML SQ SCH ×2 (21:41→21:44)
[2016-10-17 00:06] VITALS: BP 159/92; PULSE 79; RESP 18; TEMP 96.4; O2SAT 92
--- NOTE | 2016-10-17 00:51 | NUR ---
Chart Check 24 hour chart check completed
[2016-10-17] MEDS: ONDANSETRON 4mg/2ml INJECTION IV PRN (03:19)
[2016-10-17 03:25] VITALS: BP 174/94; PULSE 80; RESP 18; TEMP 96.4; O2SAT 94
--- NOTE | 2016-10-17 05:09 | NUR ---
SUMMARY RESTED THROUGH PART OF THE NIGHT WITH EYES CLOSED. COMPLAINS OF SOME BACK PAIN. MEDICATED WITH TYLENOL AT HS. ALSO COMPLAINS OF NAUSEA. MEDICATED WITH ZOFRAN THIS AM. ONE PERSON ASSIST WITH WALKER AND GAIT BELT TO AMBULATE TO THE BATHROOM. NO CHANGE IN ASSESSMENT. WILL CONTINUE TO MONITOR.
[2016-10-17 07:12] VITALS: BP 181/102; PULSE 80; TEMP 96.5; O2SAT 96
[2016-10-17 07:13] VITALS: BP 173/97
[2016-10-17] MEDS: AMLODIPINE 5 MG TABLET PO SCH (07:23)
[2016-10-17] MEDS: HEPARIN SUB-Q 5,000 unit/0.5ml vial SQ SCH (07:25)
[2016-10-17 07:32] VITALS: PULSE 80
[2016-10-17] MEDS: INSULIN LISPRO 100 UNIT/ML SQ SCH ×2 (08:51→11:45)
[2016-10-17] MEDS: VENLAFAXINE XR 75 MG CAPSULE PO SCH (09:17)
[2016-10-17] MEDS: NORMAL SALINE IV SCH (09:22)
[2016-10-17] MEDS: DAPTOMYCIN IV SCH (09:22)
[2016-10-17] MEDS: ACETAMINOPHEN 325 MG TABLET PO PRN (09:23)
[2016-10-17 10:43] LABS: ALBUMIN 3.4 G/DL (3.5-5.0); ANION GAP 9 MEQ/L (5-15); BUN/CREATININE RATIO 13 RATIO (6-26); CALCIUM 9.3 MG/DL (8.4-10.2); CHLORIDE 95 MEQ/L (98-107); CO2 - CARBON DIOXIDE 31 MEQ/L (22-30); CREATININE 3.9 MG/DL (0.7-1.2); GLOMERULAR FILTRATION RATE 12; GLUCOSE 171 MG/DL (65-110); PHOSPHORUS 6.3 MG/DL (2.5-4.5); POTASSIUM 4.4 MEQ/L (3.6-5); SODIUM 135 MEQ/L (134-144)
[2016-10-17 11:44] VITALS: BP 161/89; PULSE 80; RESP 20; TEMP 97.8
[2016-10-17] MEDS ORDERED: INSU100V SQ (11:52)
[2016-10-17] MEDS ORDERED: AMLO5TAB2 PO ×2 (11:52→12:37)
[2016-10-17] MEDS ORDERED: DOCU-168 PO (11:52)
[2016-10-17] MEDS ORDERED: INSU100V8 SQ (11:52)
[2016-10-17] MEDS ORDERED: DAPT500V3 IV (11:52)
[2016-10-17] MEDS ORDERED: METO5TAB2 PO (11:52)
[2016-10-17] MEDS ORDERED: HYDR-4246 PO (11:53)
--- NOTE | 2016-10-17 12:30 | NUR ---
Discharge Orders recieved. wine cellar worker arranging follow ups with Outpatient Infusion Unit; Wound Care Clinic and Home Health. Pt is steady on her feet. Walks short distances. Wears orthopedic shoe to right foot when ambulating. Tylenol 650 mg given this AM for general aches /pains. PICC line patent with good blood return. Flushed with 10 cc. NS before and after blood drawn for LAB this morning. PICC line covered with phillip wrap.
--- NOTE | 2016-10-17 12:50 | NUR ---
JOHNY CM VISITED WITH DR MICHELLE AND PT WILL D/C HOME TODAY. PT WILL USE Ulule AND WILL COME TO [facility] FOR [place]ERAP[place]. PT HAS CONTACT INFORMATION FOR Ulule. PT IS AWARE OF LOCATION OF ROOM 114 FOR IV NEEDS. CM PROVIDED PT WITH CONTACT INFORMATION FOR A LONER WALKER. PT WILL D/C WITH HOME WOUND VAC. PT WILL BE GOING TO [facility] WEEKLY. PT IS AWARE TO CONTACT CM IF NEEDS ARISE.
--- NOTE | 2016-10-17 14:11 | NUR ---
Discharge Instructions reviewed; pamphlet given to patient. Wound Nurse chges wound vac to small mobile version of wound vac. Belongings gathered. Goes by w/c. accompanied by Nurse, to front entrance of Hospital. Assisted into vehicle. Pt. brother will drive her home.
--- NOTE | 2016-10-17 16:11 | DSPDOC ---
VIKAS SQUIRES V PERMANENT WAVER 10/17/16 1607: General Date Date DATE: 10/17/16 TIME: 16:03 Attending Physician Levon Blood MD Admitting Physician Levon Blood MD Consulting Physician Abraham Che MD Admitting Diagnosis right foot ulcer; hyperglycemia, NIDDM; Discharge Diagnosis Right foot ulcer-nonhealing Uncontrolled diabetes Acute kidney injury Nausea Procedures 10/07/16. Surgical debridement of right foot diabetic ulcer with intraoperative cultures and placement of wound VAC. Dr. Chowdhury Laboratory Laboratory Tests Test 10/16/16 05:46 10/16/16 11:29 10/16/16 17:14 10/16/16 20:14 Glucometer 167mg/dL (65-110) 181mg/dL (65-110) 130mg/dL (65-110) 172mg/dL (65-110) Test 10/17/16 06:10 10/17/16 10:25 10/17/16 11:41 Glucometer 148mg/dL (65-110) 140mg/dL (65-110) Turbidity < 20 (0-20) Sodium Level 135MEQ/L (134-144) Potassium Level 4.4MEQ/L (3.6-5) Chloride Level 95MEQ/L (98-107) Carbon Dioxide Level 31MEQ/L (22-30) Anion Gap 9MEQ/L (5-15) Blood Urea Nitrogen 49.0MG/DL (7-17) Creatinine 3.9MG/DL (0.7-1.2) Glomerular Filtration Rate Calc 12 BUN/Creatinine Ratio 13RATIO (6-26) Glucose Level 171MG/DL (65-110) Calculated Osmolality 277MOSM/KG (261-280) Calcium Level 9.3MG/DL (8.4-10.2) Phosphorus Level 6.3MG/DL (2.5-4.5) Icterus Index < 2 (0-7) Albumin 3.4G/DL (3.5-5.0) Chemistry Specimen Hemolysis < 15 (0-25) Microbiology PATIENT: MARISELA SOLIMAN Act#:[id number] Loc: MED 136-P Specimen: [id number] Collected: 10/07/16 Received: 10/07/[address]: ELIDA CHOWDHURY MD Source: FOOTSURG RIGHT Procedure Result Verified MICROBIOLOGY GRAM STAIN Final 10/07/16-1551 RESULT FEW GRAM POSITIVE COCCI FEW NEUTROPHILS SURGICAL SITE CULTURE Final 10/11/16 Organism 1 ENTEROCOC FAECALIS - (GROUP D) Organism 2 COAG NEGATIVE STAPHYLOCOCCUS ORGANISM COMMENT: SENSITIVITY NOT PERFORMED E FAECA(D) INTERP HANNY ------ --------- AMPICILLIN S <=2 DOXYCYCLINE I 8 LINEZOLID S 1 VANCOMYCIN S 1 SURGICAL SITE CULTURE Preliminary (changed) 10/11/16 Organism 1 ENTEROCOC FAECALIS - (GROUP D) Organism 2 COAG NEGATIVE STAPHYLOCOCCUS ORGANISM COMMENT: SENSITIVITY NOT PERFORMED E FAECA(D) INTERP HANNY ------ --------- AMPICILLIN S <=2 DOXYCYCLINE I 8 LINEZOLID S 1 VANCOMYCIN S 1 SURGICAL SITE CULTURE Preliminary (changed) 10/09/16140 Organism 1 GRAM POSITIVE COCCI Organism 2 COAG NEGATIVE STAPHYLOCOCCUS ORGANISM COMMENT: SENSITIVITY NOT PERFORMED SURGICAL SITE CULTURE Preliminary (changed) 10/09/16-1400 Organism 1 GRAM POSITIVE COCCI L=Low, H=High, *L=Critical Low, *H=Critical High, A=Abnormal, *A=Critical Abnormal, D=Delta PATIENT: MARISELA SOLIMAN Age/Sex: 56/F Loc: MED 136-P : 1960 Status: ADM IN Unit#: [id number] Attending Dr: LEVON BLOOD MD RUN DATE: 10/11/16 [facility] PAGE 2 RUN TIME: [address] [place] [address] CLIA# [id number] Laboratory Specimen Report Patient: MARISELA SOLIMAN Act#:[id number] ( Continued) Specimen: [id number] Collected: 10/07/16 Received: 10/07/16 (cont'd) Source: FOOTSURG RIGHT Procedure Result Verified SURGICAL SITE CULTURE Preliminary (changed) (continued) 10/09/16-1399 Organism 2 COAG NEGATIVE STAPHYLOCOCCUS ORGANISM COMMENT: SENSITIVITY NOT PERFORMED MICROBIOLOGY (Continued) SURGICAL SITE CULTURE Preliminary (changed) 10/08/16 Organism 1 GRAM POSITIVE ORGANISM SURGICAL SITE CULTURE Preliminary (changed) 10/07/16 CULTURE INITIATED - RESULTS PENDING SURGICAL SITE CULTURE Preliminary (changed) 10/07/16 CULTURE INITIATED - RESULTS PENDING Radiology 10/03/16-foot x-ray no acute osseous abnormality. 10/06/16-MRI of the right foot- Edema within the fist metatarsal medial sesamoid bone, possibly representing osteomyelitis 10/07/16-renal sonogram is unremarkable. History of Present Illness This is a 56-year-old female who is a type II diabetic. The patient developed an ulcer on her right heel and foot approximately 2 weeks ago. The patient was seen by her primary care physician who started her on clindamycin. The patient has completed a course of clindamycin with continued worsening of her ulcer on her foot. The patient presents to the emergency department tonight for further assessment and management of a worsening cellulitis. At this time the patient is to be admitted for IV antibiotics. Plain x-ray of the foot was without clear evidence of osteomyelitis. Hospital Course 1. Diabetic foot ulcer acute present on admission: This is a significant wound at this point in time. Well start vancomycin, Zosyn, cultures were done by the ER, plain x-ray was reassuring for obvious osteomyelitis, consider MRI of the foot to better define the possibility of osteomyelitis. A wound care consult is indicated. Potential surgical evaluation would be indicated. There is drainage from the wound 2. Type 2 diabetes mellitus chronic present on admission: Poor control. Correctional plan. Adjust insulin as indicated. Patients sugars were significantly elevated on presentation, will monitor sugars carefully and utilize correctional plan aggressively. 3. Hypertension chronic present on admission: Patient is on an ARB and hydrochlorothiazide, will hold acutely overnight until sure blood pressure is stable. Restart in the morning and adjust as indicated. 4. Dehydration and acute present admission: IV fluids 5. Hyponatremia acute present on admission: Secondary to hypovolemia, IV fluids and repeat labs in the morning, additionally patients hyper-glycemia is contributing as well Day 2 patient with headache and most likely viral upper respiratory issues. Continuing antibiotics. Lovenox added issues not moving well today. Fioricet for the headache. 10/07/16 Creatinine continues to rise this morning up to 3.0. James catheter was placed this morning Renal sonogram is normal without evidence of mass, obstruction or hydronephrosis Vancomycin was stopped given continued rise in creatinine. Patient continues on Zosyn. Will need to evaluate antibiotic therapy moving forward. Given that we may need to cover for MRSA. Possible options include Teflaro, doxycycline. Will consult Dr Che and ask her to see patient tomorrow for recommendations. Given increase loose stools a C-Diff stool sample was ordered Zofran and Phenergan as needed for nausea Continue to Monitor blood sugars, Humulin sliding scale Planning for surgical debridement of foot wound today by Dr Chowdhury Lovenox SQ daily for DVT prophylaxis Will recheck CBC and BMP tomorrow to follow blood counts, renal function and electrolytes. 10/08/16 Dr Che saw patient this morning for recommendations regarding antimicrobial coverage and duration. Will evaluate recommendation once transcribed Vancomycin continues to be on hold. Random serum Vanco this morning was 26.4. Patient started on Unasyn 3g IV and daptomycin every 48 hours Unfortunately, creatinine continues to rise, and today it is 3.9. Will discuss further with Dr. Blood. May need to contact nephrology for recommendations. Urinary output continues to be adequate via James catheter. Total output yesterday, 1125ml, 850 ML overnight Continue need to encourage patient to advance oral intake If nausea is controlled. Monitor blood pressure as it has been intermittently mildly elevated. Recheck CBC and BMP tomorrow to follow blood counts, renal function and electrolytes. We'll discuss further plan of care with Dr. Blood 10/09/16 Overall appears to feel better today with less nausea. She is tolerating PO intake. Invoicing Specialist has slightly decreased today to 3.7. Weight is up 10 KG from admission. Bumex drip is started at 0.5mg/hr for fluid motivation Continue with daptomycin and Unasyn IV for antimicrobial coverage. Surgical wound culture results review. Gram-positive cocci, culture and sensitivity pending. IV fluid continues with D5W with 2 amps of sodium bicarb at 100 ML/hr Continue to monitor blood sugars as they have been elevated. Will add Lantus 10 units at HS, in addition to Humulin R sliding scale insulin Continue to monitor labs carefully. We'll recheck CBC and BMP tomorrow morning to follow blood counts, renal function and electrolytes. 10/10/16 Did speak with nursing staff regarding limiting odors. Patient is exposed to as well as limiting time./Teaching in patient's room. Continue Encourage patient to drink and eat as she feels able. Creatinine remains elevated at 3.7. Continue with Bumex drip for fluid motivation. Urinary output yesterday was 2400 ML and weight has trended down 2 kilograms. Potassium did decrease this morning down to 2.6. IV supplementation was initiated. Continue with Unasyn and daptomycin for antimicrobial coverage. Wound culture does reveal gram-positive cocci, sensitivities pending. Continue to monitor blood sugars, Lantus 10 units at at bedtime and sliding scale insulin. Will recheck CBC and BMP tomorrow morning 10/11/16 Stop IVF this morning and continue on bumex gtt today Continue to encourage patient to drink and eat as she feels able Creatinine remains elevated at 3.9 today (from 3.7); presumably ATN and nonoliguric, continue bumex as above Check diff with CBC in AM to ensure no evidence of AIN/no eosinophilia Repeat renal panel + CBC in AM as well as Mg for surveillance with diuresis Aggressive K replacement today, recheck this afternoon for surveillance Continue with Unasyn and daptomycin for antimicrobial coverage. Wound culture does reveal gram-positive cocci, will follow. Continue to monitor blood sugars, Lantus 10 units at at bedtime and sliding scale insulin. Avoid nephrotoxins and renally dose meds given KALPANA Continued supportive care for nausea and pain 10/12/16 Stop bumex gtt today and transition to 1 mg BID, monitor daily weights, still up from admission Continue to encourage patient to drink and eat as she feels able, advance to DM diet today Creatinine stable at 3.7 today, ? plateau phase of ATN, continue to monitor daily No peripheral eosinophilia on CBC; no evidence of AIN causing KALPANA Repeat renal panel + CBC in AM as well as Mg for surveillance with diuresis Aggressive K replacement today and IV Mag sulfate repletion Continue with Unasyn and daptomycin for antimicrobial coverage. Wound culture with E. Faecalis and coag neg staph, responding to therapy. Continue to monitor blood sugars, Lantus 10 units at at bedtime and sliding scale insulin. Avoid nephrotoxins and renally dose meds given KALPANA Continued supportive care for nausea and pain. Ambulate in the jorge today with assistance. 10/17/16 Overall appears much better this morning. Is more alert and feeling better. Continue to encourage PO intake. Appreciate Dr Che recommendations for fci wound treatment. She will continue with IV Daptomycin every 2 days for 6 weeks, through 11/17/16. Patient verbalizes that she is planning to come to outpatient infusion center once discharged. Continue with wound care for management of wound Vac. Invoicing Specialist continues to be elevated at 3.9. Hopeful for improvement as she is not taking in PO fluids. Continue to encourage ambulation for strengthening. Recheck CBC, CMP,Magnesium, CK tomorrow morning 10/14 Improving. More active-tolerating activities well without instability. Ambulation increasing. Nausea resolved-eating better. Bowels moving. Breathing well. No chest pain. Fasting sugar elevated this am. Creatinine about the same at 3.8. Had 2775cc urine out yesterday. Weight decreasing. Continue Daptomycin for antimicrobial coverage. Currently dosed q 48 hours due to renal status. Will need to continue through 11/17/16. Continue with wound vac. Increase Lantus to 12 units at night and mealtime insulin to 6 units with meal. Will start bladder retraining. Encourage activities. Recheck BMP in am to monitor potassium and creatinine. Recheck CBC in am due to leg wound. 10/15 Doing well. Senses when bladder full with bladder retraining. Eating well. No nausea or ab pain. Stools stable. Breathing well. Ambulating well with walker; not feeling dizzy or unsteady when up. Notes episodes of chills at times. Creatinine 3.9. Will d/c James cath. Decrease Bumex to 1mg IV daily. Continue Daptomycin, dosed q48 hour based on renal function-planning six weeks of IV antibiotics from the date of surgery, so her antibiotics would go through 11/17/16. Continue wound care per Dr. Chowdhury. Encourage continued ambulation. Continue with current insulin regimen. Recheck BMP in am to monitor renal status and potassium. Will recheck CBC in am due to foot wound and wound vac. 10/16 Had episode on nausea and vomiting overnight. Doing better with oral intake today. Urinating well with cath removed - no pain or burning. Stools moving well. Breathing without problems. Ambulating well. Still notes feeling feverish at night. D/C IV Bumex. Weight to baseline. Edema resolved. Continue Daptomycin, dosed q48 hour based on renal function-planning six weeks of IV antibiotics from the date of surgery, so her antibiotics would go through 11/17/16. Continue Wound Vac and wound care. Encourage continued ambulation. Blood sugars stable - will continue with current insulin schedule. Continue Norvasc for BP control - Home Valsartan not restarted due to KALPANA. Creatinine has stabilized at 3.9; clinically doing well with increased creatinine. Hope to see decrease of creatinine in next days to week. If not improving in 2 weeks, wound need formal nephrology evaluation. Recheck BMP in am to monitor renal status and potassium. Will recheck CBC in am due to foot wound and wound vac. 10/17/16-Discharge Overall, patient has continued to improve. Her nausea and vomiting has been better controlled and she has been able to take oral food and fluids without vomiting. We will plan to send patient on Reglan 5 milligrams with meals and at bedtime as she may have some level of gastroparesis given her uncontrolled diabetes. Acute kidney injury. Continues to be a concern as her creatinine appears to have plateaued at 3.9. This was discussed with monument carver who recommended continued monitoring outpatient and possible follow-up with nephrology if creatinine does not improve in the next 2 weeks. Patient did spend time with diabetic education and will be discharged on Lantus 12 units at bedtime and Humalog 6 units with meals. Patient is encouraged to check her blood sugars fasting and 2 hours postprandial. A prescription for new lancets is given at time of discharge. Patient instructed to use [place] or Tylenol only for pain control and to avoid all NSAIDs. She will continue with follow-up at the wound care center weekly and will have home health for additional wound and dressing changes. She is planning to have outpatient infusions of daptomycin 500 milligrams IV every 48 hours for an additional 4 weeks with the end date been 11/14/16. Will follow regular outpatient labs including CBC with differential, BMP, CRP and CPK which will be done every Thursday and faxed to both Dr. Che as well as Dr. Cordova. A repeat BMP will also be obtained. On and be faxed to Dr. Cordova as he is covering for primary care provider, Dr. Mccoy. This is a general summation of the patients hospital course. Please refer to the medical record if additional detail is needed. Total discharge time greater than 45 minutes Problems: (1) Non-healing ulcer of foot Onset Date: ~ 09/20/2016 Status: Acute Assessment & Plan: Wound vac intact to left foot, on Daptomycin (2) KALPANA (acute kidney injury) Status: Acute Assessment & Plan: Not POA, secondary to ATN (3) Diabetes mellitus type II, uncontrolled Status: Chronic Assessment & Plan: Hemoglobin A-1 >15% on arrival (4) Hyperglycemia Status: Acute (5) HTN (hypertension) Status: Chronic (6) Nausea & vomiting Status: Resolved Assessment & Plan: ? Secondary to KALPANA, improved with supportive care (7) Hypokalemia Status: Resolved Assessment & Plan: Not POA, secondary to diuresis (8) 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 Status: Chronic (9) Hypomagnesemia Status: Resolved Assessment & Plan: Secondary to diuresis Code Status Full Code Home Meds Active Scripts Amlodipine Besylate (Amlodipine Besylate) 5 Mg Tablet, 5 MG PO BID, #60 TAB Prov:VIKAS SQUIRES APRN 10/17/16 Hydrocodone/Acetaminophen ([place] 5-325 Tablet) 5-325 Tablet, 1 TAB PO Q6H Y for PAIN, #30 TAB Prov:VIKAS SQUIRES APRN 10/17/16 Daptomycin (Daptomycin) 500 Mg Vial, 500 MG IV Q48H for 30 Days Prov:VIKAS SQUIRES APRN 10/17/16 Metoclopramide HCl (Metoclopramide HCl) 5 Mg Tablet, 5 MG PO ACHS, #60 TAB Take 1 tablet, by mouth, 4 times a day (with meals and at bedtime). Prov:VIKAS SQUIRES APRN 10/17/16 Insulin Lispro (Humalog) 100 Unit/Ml Inj, 6 UNIT SQ AC15, #30 Prov:VIKAS SQUIRES APRN 10/17/16 Insulin Glargine,Hum.rec.anlog (Lantus) 100 Unit/Ml Inj, 12 UNIT SQ HS, #30 Prov:VIKAS SQUIRES APRN 10/17/16 Docusate Sodium (Colace) 100 Mg Capsule, 100 MG PO BID Y for CONSTIPATION, #30 CAP Prov:VIKAS SQUIRES APRN 10/17/16 Reported Medications Venlafaxine HCl (Venlafaxine HCl ER) 75 Mg Cap.er.24h, 75 MG PO DAILY 10/03/16 Discontinued Reported Medications Naproxen Sodium (Aleve) 220 Mg Tablet, 440 MG PO BIDWM Y for PAIN 10/03/16 Valsartan/Hydrochlorothiazide (Valsartan-Hctz 160-25 mg Tab) 1 Each Tablet, 1 TAB PO DAILY 10/03/16 Discontinued Scripts Clindamycin HCl (Clindamycin HCl) 300 Mg Capsule, 300 MG PO QID for 10 Days, # 40 CAP [address] Victor Manuel Kennedy Director Of [facility] [address] [facility] [phone] Prov:FRANNYMARKOKIRANNAHEED Rea PERMANENT WAVER 09/17/16 Face to Face Encounter I met with patient on the day of dismissal and discussed follow up appointments , medications, and safety plan. Discharge Disposition Stable Copies To 1: PRISCA MCCOY MD Copies To 2: ABRAHAM CHE MD, STEPHANIE L MD 10/18/16 0029: Hospital Course 10/18/2016- I reviewed this chart, the patient history, and the PERMANENT WAVER's/PA's documented findings as above. We discussed and formulated the assessment and plan as above with the additions below.-Dr Michelle I did see and examine the patient on 10/17/2016. At that time she was doing well and nausea had improved. She was feeling ready for dismissal to home. On exam she is alert and in no acute distress. Chest is clear to auscultation. Cardiovascular reveals a regular rate and rhythm. Abdomen is soft and nontender. Extremities are free of edema. I did call and talk with Dr. Jono Cordova and he has agreed to follow-up with the patient next week and follow-up on lab work and tell her primary care physician Dr. Mccoy, is back in the office. She will have lab work twice a week which will be sent to Dr. Che and Dr. Cordova. The patient will also come in for daptomycin every other day. She will also continue to have wound VAC changes. She will follow-up with Dr. Che in the wound care center in 3-4 weeks. I did discuss this with Dr. Che. Patient was dismissed in stable condition on 10/17/2016. Problems: Home Meds Active Scripts Amlodipine Besylate (Amlodipine Besylate) 5 Mg Tablet, 5 MG PO BID, #60 TAB Prov:VIKAS SQUIRES APRN 10/17/16 Hydrocodone/Acetaminophen ([place] 5-325 Tablet) 5-325 Tablet, 1 TAB PO Q6H Y for PAIN, #30 TAB Prov:VIKAS SQUIRES APRN 10/17/16 Daptomycin (Daptomycin) 500 Mg Vial, 500 MG IV Q48H for 30 Days Prov:VIKAS SQUIRES APRN 10/17/16 Metoclopramide HCl (Metoclopramide HCl) 5 Mg Tablet, 5 MG PO ACHS, #60 TAB Take 1 tablet, by mouth, 4 times a day (with meals and at bedtime). Prov:VIKAS SQUIRES APRN 10/17/16 Insulin Lispro (Humalog) 100 Unit/Ml Inj, 6 UNIT SQ AC15, #30 Prov:VIKAS SQUIRES APRN 10/17/16 Insulin Glargine,Hum.rec.anlog (Lantus) 100 Unit/Ml Inj, 12 UNIT SQ HS, #30 Prov:VIKAS SQUIRES V PERMANENT WAVER 10/17/16 Docusate Sodium (Colace) 100 Mg Capsule, 100 MG PO BID Y for CONSTIPATION, #30 CAP Prov:VIKAS SQUIRES APRN 10/17/16 Reported Medications Venlafaxine HCl (Venlafaxine HCl ER) 75 Mg Cap.er.24h, 75 MG PO DAILY 10/03/16 Discontinued Reported Medications Naproxen Sodium (Aleve) 220 Mg Tablet, 440 MG PO BIDWM Y for PAIN 10/03/16 Valsartan/Hydrochlorothiazide (Valsartan-Hctz 160-25 mg Tab) 1 Each Tablet, 1 TAB PO DAILY 10/03/16 Discontinued Scripts Clindamycin HCl (Clindamycin HCl) 300 Mg Capsule, 300 MG PO QID for 10 Days, # 40 CAP [address] Victor Manuel Kennedy Director [facility] [address] [phone] Prov:NAHEED RYDER APRN 09/17/16 Copies To 1: PRISCA MCCOY MD Copies To 2: ABRHAAM CHE MD, JULIE V APRN Oct 17, 2016 16:07 JAYJAY MICHELLE MD Oct 18, 2016 00:29
--- NOTE | 2016-10-18 15:27 | NUR ---
WOUND VAC Yuki Howard called [facility] about wound vac. wound vac reference # [id number].
--- NOTE | 2016-10-20 16:24 | NUR ---
JOHNY MCCLAIN SPOKE WITH PT. PT IS HAS CAME TO [facility] ON THURSDAY FOR ABTX. PT HAS LAB HERE THIS AM AND WILL COME BACK THURSDAY FOR LABS. SHE IS AWARE THAT ABTX IS EVERY 48 HOURS HERE AT [facility]. SHE WILL CALL [facility] IN WOUND CARE AND MAKE APPOINTMENT FOR 2X PER WEEK SINCE SHE WILL NOT HAVE HOME HEALTH DUE TO COST. PT IS AWARE TO CONTACT CM IF NEEDS ARISE.
== END 2016-10-17 16:00 | disposition home health service (06) | DRG 623 ==
LOC: ED 19:30 → EDHOLD 21:22 → MED 21:22
PROVIDERS: ADMIT Emergency Medicine; ATTEND Hospitalist
PROC: 0HBMXZZ Excision of Right Foot Skin, External Approach (ICD-10-PCS; principal; 2016-10-07 14:42)
DX: E11.621 Type 2 diabetes mellitus with foot ulcer (principal); E87.1 Hypo-osmolality and hyponatremia; L97.511 Non-pressure chronic ulcer of other part of right foot limited to breakdown of skin; E86.0 Dehydration; I12.9 Hypertensive chronic kidney disease with stage 1 through stage 4 chronic kidney disease, or unspecified chronic kidney disease; N18.2 Chronic kidney disease, stage 2 (mild); E11.65 Type 2 diabetes mellitus with hyperglycemia; N17.9 Acute kidney failure, unspecified; R11.2 Nausea with vomiting, unspecified; E87.6 Hypokalemia; E11.22 Type 2 diabetes mellitus with diabetic chronic kidney disease; F32.9 Major depressive disorder, single episode, unspecified; E83.42 Hypomagnesemia
CPT/HCPCS: 36415; 80048; 80053; 80069; 80202; 81001; 82550; 82565; 82948; 83036; 83605; 83735; 84100; 85025; 87070; 87075; 87077; 87147; 87186; 87205; 87493; 96365

== ENCOUNTER → 2016-10-21 | Outpatient (CLI) | payer OTHER ==
[~2016-10-21] MED LIST changes: +AMLO5TAB2 PO; -CLIN300C86 PO; +DAPT500V3 IV; +DOCU-168 PO; +HYDR-4246 PO; -IBUP-2067 PO; +INSU100V SQ; +INSU100V8 SQ; +METO5TAB2 PO; +ONDA4TAB7 PO; +VENL-68 PO
== END ==
LOC: NWCC 13:35
PROVIDERS: ATTEND Internal Medicine
DX: E11.621 Type 2 diabetes mellitus with foot ulcer (principal); L97.412 Non-pressure chronic ulcer of right heel and midfoot with fat layer exposed; M86.171 Other acute osteomyelitis, right ankle and foot
CPT/HCPCS: 97605

== ENCOUNTER → 2016-10-24 | Outpatient (CLI) | payer OTHER | LOC: NWCC 11:27 | PROVIDERS: ATTEND Internal Medicine | DX: E11.621 Type 2 diabetes mellitus with foot ulcer (principal); L97.412 Non-pressure chronic ulcer of right heel and midfoot with fat layer exposed | CPT/HCPCS: 97605; A6196; A6209; A6237 ==

== ENCOUNTER → 2016-10-27 | Outpatient (CLI) | payer OTHER | LOC: NWCC 10:57 | PROVIDERS: ATTEND Internal Medicine | DX: E11.621 Type 2 diabetes mellitus with foot ulcer (principal); L97.412 Non-pressure chronic ulcer of right heel and midfoot with fat layer exposed; M86.171 Other acute osteomyelitis, right ankle and foot; G62.9 Polyneuropathy, unspecified | CPT/HCPCS: 11042; A6209 ==

== ENCOUNTER → 2016-10-29 | Outpatient (CLI) | payer OTHER ==
[~2016-10-29] MED LIST changes: +BUPIVACAINE 0.25% (2.5mg/ml) INJ 30ml SDV ONE; +FENTANYL 100mcg/2ml INJECTION ONE; +LIDOCAINE 1% (10mg/ml) 30ml SDV ONE; +ONDANSETRON 4mg/2ml INJECTION ONE; +PROPOFOL 500mg 50 ML IV ONE
--- NOTE | 2016-10-29 19:55 | WOUNDPNF ---
DATE 10/29/2016 CHIEF COMPLAINT Right foot first metatarsal head diabetic foot ulcer. HISTORY OF PRESENT ILLNESS Ms. Deshawn Lopez has been seen at the wound clinic since I saw her as an inpatient for Yadav grade 3 ulcer to the right first metatarsal head. The ulcer is due to diabetes. Unfortunately it is growing in size and not improving with local wound care and with IV antibiotics. She also admits to significant nausea, inability to keep food down since she has been on the daptomycin. She has been using a postop shoe and trying to stay off of her foot. Past Medical History, Past Surgical History, Medications, Allergies, Social History, and Family History are reviewed by myself and well documented in the [facility] EMR. REVIEW OF SYSTEMS Positive for nausea. It is negative for chest pain, shortness of breath, fever, chills, diarrhea, constipation, or chest pain. PHYSICAL EXAMINATION VITALS: .IV1: .IV2: GENERAL: She is alert and oriented. RIGHT LOWER EXTREMITY: Exam of the right foot shows there is a grade 3 ulcer over the plantar aspect of the right foot over the first metatarsal head. There is exposed bone, which is likely the medial sesamoid bone. There is slough present within the wound. Please see nursing notes for full measurements. Periwound area is clear. She has full active flexion and extension of the great toe. 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 PLAN Unfortunately her wound has not made improvements since her hospitalization and with local wound debridement as well as IV antibiotics. In large I think this because she has exposed bone, which the sesamoid bone. Because of this and changes on the MRI previously I did recommend sesamoidectomy. I think this will give her the best chance at healing this wound and curing her of the osteomyelitis. I also wrote her for oral dissolving Zofran to help with the nausea. We will plan on surgery on Thursday for a right foot diabetic foot ulcer debridement with sesamoidectomy. HUSSAIN
== END ==
LOC: NWCC 14:24
PROVIDERS: ATTEND Internal Medicine
DX: E11.621 Type 2 diabetes mellitus with foot ulcer (principal); L97.412 Non-pressure chronic ulcer of right heel and midfoot with fat layer exposed
CPT/HCPCS: 99213; A6209

== ENCOUNTER 2016-10-31 08:30 | Day surgery (SDC) | payer OTHER ==
[~2016-10-31] VITALS: Ht 165.1 cm; Wt 103.0 kg
[~2016-10-31 08:30] MED LIST changes: -BUPIVACAINE 0.25% (2.5mg/ml) INJ 30ml SDV ONE; +CEFAZOLIN 1 GRAM INJECTION IV ONE; -FENTANYL 100mcg/2ml INJECTION ONE; +LIDOCAINE 1% (10mg/ml) 2ml SDV INJ ONE; -LIDOCAINE 1% (10mg/ml) 30ml SDV ONE; +NORMAL SALINE 1,000 ML IV ONE; -ONDANSETRON 4mg/2ml INJECTION ONE; -PROPOFOL 500mg 50 ML IV ONE
--- OUTSIDE RECORDS SUMMARY | 2016-10-31 08:34 | XMS REPORT | Continuity of Care Document ---
Author Author [facility] Organization [facility] Address Unknown Phone Unavailable Care Team Providers Care Clerk Operator Name Role Phone PRISCA ALLAN MD Primary Care Physician [phone] Insurance Providers Guarantor Rebecca Soliman Address [address] [place] [address] Payer [facility] Policy Number [id number] Subscriber's Name Rebecca Soliman Relationship 18 Self Group Number [id number] Problems Active Problems Medical Problem Onset Date Status KALPANA (acute kidney injury) Unknown Acute Depression Unknown Chronic Diabetes mellitus type II, uncontrolled Unknown Chronic HTN (hypertension) Unknown Chronic Hyperglycemia Unknown Acute Hypokalemia Unknown Resolved Hypomagnesemia Unknown Resolved Nausea & vomiting Unknown Resolved Non-healing ulcer of foot ~09/20/2016 Acute 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 Unknown Chronic Past Problems Medical Problem Onset Date Callus of foot Unknown Cellulitis of foot, right Unknown Medications Current Home Medications Medication Dose Units Route Directions Days Qty Instructions Start Date Amlodipine Besylate 5 Mg Tablet 5 Mg Oral Twice A Day 60 Tablet Daptomycin 500 Mg Vial 500 Mg Intraven Every 48 Hours 30 Days 10/17 Docusate Sodium (Colace) 100 Mg Capsule 100 Mg Oral Twice A Day as needed for Constipation 30 Capsule 10/17/16 Hydrocodone/Acetaminophen ([place] 5-325 Tablet) 5-325 Tablet 1 Tab Oral Every 6 Hours as needed for Pain 30 Tablet 10/17/16 Insulin Glargine,Hum.rec.anlog (Lantus) 100 Unit/Ml Inj 12 Unit Sub-Q Bedtime 30 10/17/16 Insulin Lispro (Humalog) 100 Unit/Ml Inj 6 Unit Sub-Q 15 Min Before Meals 30 10/17/16 Metoclopramide Hcl 5 Mg Tablet 5 Mg Oral Before Meals And At Bedtime 60 Tablet Take 1 tablet, by mouth, 4 times a day (with meals and at bedtime). 10/17/16 Venlafaxine Hcl (Venlafaxine Hcl Er) 75 Mg Cap.er.24h 75 Mg Oral Daily 10/03/16 Past Home Medications Medication Directions Ordered Status Amlodipine Besylate 5 Mg Tablet, 5 Mg Oral Daily 10/17/16 Discontinued Clindamycin Hcl 300 Mg Capsule, 300 Mg Oral Four Times Daily 09/17/16 Discontinued Naproxen Sodium (Aleve) 220 Mg Tablet, 440 Mg Oral Twice Daily With Meals as needed for Pain 10/03/16 Discontinued Valsartan/Hydrochlorothiazide (Valsartan-Hctz 160-25 Mg Tab) 1 Each Tablet, 1 Tab Oral Daily 10/03/16 Discontinued Social History Social History Problem Response Recorded Date/Time Onset Date Status Has the pt used tobacco in the last 12 months No 10/03/2016 10:15pm Not Applicable Not Applicable Hospital Discharge Instructions Current inpatient/outpatient. Discharge instructions are currently unavailable. Plan of Care Current inpatient/outpatient. The plan of care is currently unavailable Functional Status No functional status results. Allergies, Adverse Reactions, Alerts No known allergies. Immunizations Query Response on File Recorded Date/Time Hx Influenza Vaccination No 10/03/16 10:15pm Hx Pneumococcal Vaccination No 10/03/16 10:15pm Hx Influenza Vaccination No 10/03/16 10:15pm DTaP Vaccine History YES 10/03/16 8:12pm Influenza Vaccine Hx NO 10/04/16 4:23pm Tetanus Diptheria Vaccine History YES 10/03/16 8:12pm Vital Signs Acute Vital Signs Vital Response Date/Time Temperature (Fahrenheit) 97.8 deg F (96.8 - 99.1) 10/17/2016 11:44am Temperature (Calculated Celsius) 36.47134 degrees C (36.0 - 37.3) 10/17/2016 11:44am Temperature Source Temporal 10/07/2016 3:34pm Pulse Rate (adult) 80 bpm (60 - 100) 10/17/2016 11:44am Respiratory Rate 20 breaths/min (10 - 20) 10/17/2016 11:44am O2 Sat by Pulse Oximetry 96 % (90 - 100) 10/17/2016 7:12am Oxygen Delivery Method Room Air 10/17/2016 11:44am Oxygen Flow Rate 5.00 L/min 10/07/2016 3:05pm Blood Pressure 161/89 mm Hg 10/17/2016 11:44am Blood Pressure Source Automatic Cuff 10/17/2016 11:44am Height (Feet) 5 feet 10/16/2016 5:12pm Height (Inches) 5.00 inches 10/16/2016 5:12pm Weight (Kilograms) 73.100 kg 10/17/2016 7:14am Body Mass Index (BMI) 27.1 10/03/2016 10:09pm Results No known relevant diagnostic tests, laboratory data and/or discharge summary. Procedures Procedure Status Date Provider(s) X-ray exam of foot Completed 09/18/16 Incision and drainage, joint Completed 10/07/16 ELIDA PAYNE MD Encounters Encounter Location Arrival/Admit Date Discharge/Depart Date Attending Provider Registered [facility] 10/17/16 2:36pm PRISCA ALLAN MD Discharged Inpatient [facility] 10/03/16 9:22pm 10/17/16 4:00pm DANIA HUERTAS MD Registered Clinic [facility] 09/18/16 3:53pm NAHEDE RYDER APRN Departed Emergency Room [facility] 09/17/16 7:12pm 09/17/16 7: 54pm NAHEED RYDER APRN
[2016-10-31 09:39] VITALS: Ht 165.1 cm; Wt 103.0 kg
[2016-10-31 09:40] VITALS: BP 129/85; PULSE 103; RESP 16; TEMP 98; O2SAT 98
[2016-10-31 09:53] LABS: BASOPHILS % (AUTO) 0.5 % (0-2); EOSINOPHILS # (AUTO) 0.5 T/MM3 (0-0.5); HCT - HEMATOCRIT 37.4 % (36-46); HGB - HEMOGLOBIN 12.9 GM/DL (12-16); IMMATURE GRANULOCYTE # (AUTO) 0.01 T/MM3 (0.00-0.03); IMMATURE GRANULOCYTE % (AUTO) 0.1 % (0.0-0.5); LYMPHOCYTES # (AUTO) 1.5 T/MM3 (1-4.8); LYMPHOCYTES % (AUTO) 20.2 % (23-45); MEAN CORPUSCULAR HGB 30.9 UUG (26-34); MEAN CORPUSCULAR HGB CONC(MCHC 34.5 GM/DL (31-37); MEAN CORPUSCULAR VOLUME 89.5 UM3 (80-100); MEAN PLATELET VOLUME 8.5 UM3 (9.4-12.4); MONOCYTES # (AUTO) 0.4 T/MM3 (0-0.8); MONOCYTES % (AUTO) 5.2 % (0-9.0); NEUTROPHILS #(AUTO)-ABSOLUTE 5.1 T/MM3 (1.8-7.7); RED BLOOD COUNT 4.18 M/MM3 (4.00-5.20); WBC - WHITE BLOOD COUNT 7.5 T/MM3 (4.5-11.0)
[2016-10-31 09:59] VITALS: TEMP 97.6
[2016-10-31 10:06] LABS: ALBUMIN 4.2 G/DL (3.5-5.0); ALKALINE PHOSPHATASE 112 U/L (38-126); ALT (SGPT) 27 U/L (9-52); ANION GAP 18 MEQ/L (5-15); AST (SGOT) 23 U/L (14-36); BUN/CREATININE RATIO 19 RATIO (6-26); CALCIUM 9.7 MG/DL (8.4-10.2); CHLORIDE 96 MEQ/L (98-107); CO2 - CARBON DIOXIDE 25 MEQ/L (22-30); GLOMERULAR FILTRATION RATE 26; GLUCOSE 195 MG/DL (65-110); POTASSIUM 3.7 MEQ/L (3.6-5); SODIUM 139 MEQ/L (134-144); TOTAL PROTEIN 8.4 G/DL (6.3-8.2)
--- NOTE | 2016-10-31 10:47 | ANESPREOP ---
Anesthesia Record Date and Time DATE: 10/31/16 TIME: 10:45 Pre-Op Diagnosis R foot diabetic ulcer Proposed Surgical Procedure DEBRIDEMENT RT. FOOT DIABETIC ULCER WITH SESAMOIDECTOMY Allergies: Coded Allergies: No Known Allergies (Unverified , 10/31/16) Ht/Wt/BMI Height: 5 ' 5.00 " Weight: 103.000 kg BMI: 37.8 kg/m2 Vital Signs Date Time Temp Pulse Resp B/P Pulse Ox O2 Delivery O2 Flow Rate FiO2 10/31/16 09:59 97.6 10/31/16 09:40 103 16 129/85 98 Room Air Medications Amlodipine Besylate (Amlodipine Besylate) 5 Mg Tablet, 5 MG PO BID Last Taken: on 10/31/16 0800 Daptomycin (Daptomycin) 500 Mg Vial, 500 MG IV Q48H Last Taken: on 10/29/16 1600 Docusate Sodium (Colace) 100 Mg Capsule, 100 MG PO BID PRN for CONSTIPATION Last Taken: on Unknown Date & Time Hydrocodone/Acetaminophen ([place] 5-325 Tablet) 5-325 Tablet, 1 TAB PO Q6H PRN for PAIN Last Taken: on Unknown Date & Time Insulin Glargine,Hum.rec.anlog (Lantus) 100 Unit/Ml Inj, 12 UNIT SQ HS Last Taken: on 10/30/16 2100 Insulin Lispro (Humalog) 100 Unit/Ml Inj, 6 UNIT SQ AC15 Last Taken: on 10/30/16 1800 Metoclopramide HCl (Metoclopramide HCl) 5 Mg Tablet, 5 MG PO ACHS Take 1 tablet, by mouth, 4 times a day (with meals and at bedtime). Last Taken: on Unknown Date & Time Ondansetron (Zofran Odt) 4 Mg Tab.rapdis , 4 MG PO Q6HR, (Reported) Oral disintegrating tablet Last Taken: on 10/29/16 2000 Venlafaxine HCl (Venlafaxine HCl ER) 75 Mg Cap.er.24h, 75 MG PO DAILY, (Reported) Last Taken: on 10/30/16 1200 Currently on Beta Tri: No Medical/Surgical History Anesthesia PMH: Reports: *Diabetes, *Hypertension, Depression, Renal Disease, Denies: *[place], Anesthesia Reactions (NO AIRWAY ISSUES, N&V), Arthritis, Asthma, Blood Transfusion Reac, CHF, COPD, CVA/Stroke/TIA, Cancer, Clotting Problems, Deep Vein Thrombosis, Glaucoma, Malignant Hyperthermia, Pacemaker, Seizures, Sleep Apnea, Thyroid Disease Smoking Status: Never smoker Use Chewing Tobacco?: No Second Hand Exposure: No Substance Use Type: does not use Alcohol Intake: none HX of Last Menstrual Period: AROUND AGE 49 Past Surgical History Orthopedic Surgeries: No Abdominal Surgeries: Yes - EXPLORATORY ABDOMINAL SURGERY Genitourinary Surgeries: No Cardiac Surgeries: No Endocrine Surgeries: No Reproductive Surgeries: Yes - C SECTION Neurological Surgeries: No Ear Surgeries: No Nose Surgeries: No Throat Surgeries: No Other Surgeries: No Anesthesia Adverse Reactions: FOUND none Pertinent Findings Laboratory Tests 10/31/16 09:37 EKG Rhythm: Sinus Rhythm Physical Exam Respiratory: Bilat breath sounds equal, Lungs clear Cardiovascular: FOUND Regular rate, rhythm, FOUND No murmur Airway Assessment Mallampati Score: I TMD: 3 Fingerbreadths Neck Extension: Good Overall Assessment: No Airway Concerns ASA: 3 Plan Anesthesia Plan: TIVA Discussion Discussed risks/options/alternatives of anesthesia and questions answered. Patient consents. Nursing pain assessment noted. Attestation Statement Prior to the delivery of any anesthetic medication, I examined the patient, developed the plan, obtained the patient's consent and discussed the risk and benefits of the procedure with the patient/guardian. IVONE GALARZA CRNA Oct 31, 2016 10:47
[2016-10-31 11:59] VITALS: BP 95/61; PULSE 90; RESP 16; TEMP 98.1; O2SAT 96
[2016-10-31 12:11] VITALS: BP 121/68
[2016-10-31 12:15] VITALS: BP 123/73; PULSE 84; RESP 13; O2SAT 94
[2016-10-31 12:30] VITALS: BP 123/70; PULSE 87; RESP 20; O2SAT 95
--- NOTE | 2016-10-31 12:47 | ANESPO ---
Post-Op Note Date 10/31/16 Time: 12:46 Status Pt Participated in Evaluation: Pt participated in person Vital Signs Date Time Temp Pulse Resp B/P Pulse Ox O2 Delivery O2 Flow Rate FiO2 10/31/16 12:30 87 20 123/70 95 Room Air 10/31/16 11:59 98.1 Respiratory Function: Airway patent, Regular respirations Cardiovascular Function: Regular pulse Mental Status: Alert/oriented Pain Level Intensity: 0 (0) Hydration: Taking po fluids, IV infusing Complications during Recovery None apparent Post-Anesthesia Notes [email or web address]. [email or web address] Follow-Up Instructions Instructions Per Surgeon Additional Information none TIMA WHITESIDE CRNA Oct 31, 2016 12:47
--- NOTE | 2016-10-31 13:24 | DI ---
Indication: ITS.REASON: RT FOOT DEBRIDEMENT/SESAMOIDECTOMY PROCEDURE: RF FOOT RIGHT 2 VIEWS: Encounter: Initial Comparison: Right foot MRI dated October 06, 2016 Findings: Three fluoroscopic spot images are submitted for interpretation. Images show the right foot in frontal and lateral projections. There is a surgical instrument adjacent to the first metatarsal sesamoid bones on the initial view. The medial sesamoid appears absent on the later lateral view. Impression: Fluoroscopy as above. Please refer to the dictated operative note for further details. Fluoroscopy time is 9.8 seconds. Fluoroscopy dose is 32.1 mRad. .
--- NOTE | 2016-11-22 07:58 | OPNOTEF ---
DATE OF SURGERY 10/31/2016 PREOPERATIVE DIAGNOSIS Right foot diabetic foot ulcer with osteomyelitis of the medial sesamoid. POSTOPERATIVE DIAGNOSIS Right foot diabetic foot ulcer with osteomyelitis of the medial sesamoid. PROCEDURE Debridement of right foot diabetic foot ulcer with sesamoidectomy. SURGEON Ramsey Chowdhury MD ANESTHESIA TIVA. COMPLICATIONS None. DESCRIPTION OF PROCEDURE Mrs. Lopez and her right foot were marked in the preoperative holding area. She was brought back to the operating suite and placed supine on the operating table. After anesthetic was administered, the right lower extremity was prepped and draped in my normal sterile fashion. Time-out was performed. The wound was evaluated. There was very little subcutaneous tissue which was necrotic. It was fibrous in nature overlying the medial sesamoid. This was removed sharply. I then sharply debrided around the sesamoid bone and removed it in several pieces using rongeurs. There was no other significant necrotic tissue noted. The wound was thoroughly irrigated with normal saline and then sterile dressings were placed. The drapes were then removed and she was taken back to the recovery room under the care of Anesthesia. She tolerated the procedure well. There were no complications. HUSSAIN
== END 2016-10-31 13:00 | disposition home or self-care (01) ==
LOC: NSC 08:30
PROVIDERS: ATTEND Orthopaedic Surgery
DX: E11.621 Type 2 diabetes mellitus with foot ulcer (principal); L97.519 Non-pressure chronic ulcer of other part of right foot with unspecified severity; E11.69 Type 2 diabetes mellitus with other specified complication; M86.9 Osteomyelitis, unspecified; Z79.4 Long term (current) use of insulin
CPT/HCPCS: 28315; 73620; 76000; 80053; 82948; 85025; 87070; 87075; 87077; 87147; 87186; 87205; J0690; J2405; J3010; J7030

== ENCOUNTER → 2016-11-03 | Outpatient (CLI) | payer OTHER ==
[~2016-11-03] MED LIST changes: -CEFAZOLIN 1 GRAM INJECTION IV ONE; -LIDOCAINE 1% (10mg/ml) 2ml SDV INJ ONE; -NORMAL SALINE 1,000 ML IV ONE
== END ==
LOC: NWCC 10:29
PROVIDERS: ATTEND Internal Medicine
DX: E11.621 Type 2 diabetes mellitus with foot ulcer (principal); L97.412 Non-pressure chronic ulcer of right heel and midfoot with fat layer exposed; M86.171 Other acute osteomyelitis, right ankle and foot; G62.9 Polyneuropathy, unspecified
CPT/HCPCS: 11042; A6210

== ENCOUNTER → 2016-11-10 | Outpatient (CLI) | payer OTHER | LOC: NWCC 10:57 | PROVIDERS: ATTEND Internal Medicine | DX: E11.621 Type 2 diabetes mellitus with foot ulcer (principal); L97.412 Non-pressure chronic ulcer of right heel and midfoot with fat layer exposed; M86.171 Other acute osteomyelitis, right ankle and foot ==

== ENCOUNTER → 2016-11-17 | Outpatient (CLI) | payer OTHER ==
[~2016-11-17] MED LIST changes: +CALMOSEPTINE OINTMENT 3.5 G PACKET TOP ONE
== END ==
LOC: NWCC 11:04
PROVIDERS: ATTEND Internal Medicine
DX: E11.621 Type 2 diabetes mellitus with foot ulcer (principal); L97.412 Non-pressure chronic ulcer of right heel and midfoot with fat layer exposed; M86.171 Other acute osteomyelitis, right ankle and foot; B96.89 Other specified bacterial agents as the cause of diseases classified elsewhere
CPT/HCPCS: 11042; 87070; 87075; 87077; 87186; 87205; A6209

== ENCOUNTER → 2016-11-21 | Outpatient (CLI) | payer OTHER ==
[~2016-11-21] MED LIST changes: -CALMOSEPTINE OINTMENT 3.5 G PACKET TOP ONE
== END ==
LOC: NWCC 11:10
PROVIDERS: ATTEND Internal Medicine
DX: E11.621 Type 2 diabetes mellitus with foot ulcer (principal); L97.412 Non-pressure chronic ulcer of right heel and midfoot with fat layer exposed; M86.171 Other acute osteomyelitis, right ankle and foot; B96.89 Other specified bacterial agents as the cause of diseases classified elsewhere
CPT/HCPCS: 97605; A6237

== ENCOUNTER → 2016-11-25 | Outpatient (CLI) | payer OTHER | LOC: NWCC 14:34 | PROVIDERS: ATTEND Internal Medicine | DX: E11.621 Type 2 diabetes mellitus with foot ulcer (principal); L97.412 Non-pressure chronic ulcer of right heel and midfoot with fat layer exposed | CPT/HCPCS: 97605 ==

== ENCOUNTER → 2016-11-28 | Outpatient (CLI) | payer OTHER | LOC: NWCC 10:03 | PROVIDERS: ATTEND Internal Medicine | DX: E11.621 Type 2 diabetes mellitus with foot ulcer (principal); L97.412 Non-pressure chronic ulcer of right heel and midfoot with fat layer exposed | CPT/HCPCS: 97605; A6237 ==

== ENCOUNTER → 2016-12-01 | Outpatient (CLI) | payer OTHER | LOC: NWCC 14:32 | PROVIDERS: ATTEND Internal Medicine | DX: E11.621 Type 2 diabetes mellitus with foot ulcer (principal); L97.412 Non-pressure chronic ulcer of right heel and midfoot with fat layer exposed; M86.171 Other acute osteomyelitis, right ankle and foot | CPT/HCPCS: 11042; A6237 ==

== ENCOUNTER → 2016-12-05 | Outpatient (CLI) | payer OTHER ==
--- NOTE | 2016-12-05 14:31 | DI ---
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 There is no pleural effusion or pneumothorax. The heart size, mediastinal contours and pulmonary vascularity are within normal limits. IMPRESSION: No acute cardiopulmonary disease. .
--- NOTE | 2016-12-05 16:36 | DI ---
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 Plantar planar spot images of the feet were obtained in the arterial, blood pool and delayed phases. Lateral projections were performed in the blood pool and delayed phases. FINDINGS: Focal tracer uptake in the right first MTP joint region on the arterial phase imaging. No abnormal arterial phase uptake within the left foot. Blood pool phase imaging shows continued accumulation of tracer in the right first metatarsal head region. Delayed images show uptake in the proximal phalanx of the great toe and first metatarsal head. No other areas of abnormal uptake appreciated. Impression: Abnormal three-phase uptake within the right first MTP joint region probably representing osteomyelitis of the first metatarsal head and proximal phalanx of the great toe. .
== END ==
LOC: IMA 12:56
PROVIDERS: ATTEND Internal Medicine
DX: L97.414 Non-pressure chronic ulcer of right heel and midfoot with necrosis of bone (principal); R94.8 Abnormal results of function studies of other organs and systems
CPT/HCPCS: 71020; 78315; 93005; A9503

== ENCOUNTER → 2016-12-09 | Outpatient (CLI) | payer OTHER | LOC: NWCC 10:49 | PROVIDERS: ATTEND Internal Medicine | DX: M86.171 Other acute osteomyelitis, right ankle and foot (principal); E11.621 Type 2 diabetes mellitus with foot ulcer; L97.414 Non-pressure chronic ulcer of right heel and midfoot with necrosis of bone | CPT/HCPCS: 99183 ==

== ENCOUNTER → 2016-12-10 | Outpatient (CLI) | payer OTHER | LOC: NWCC 10:40 | PROVIDERS: ATTEND Internal Medicine | DX: M86.171 Other acute osteomyelitis, right ankle and foot (principal); E11.621 Type 2 diabetes mellitus with foot ulcer; L97.414 Non-pressure chronic ulcer of right heel and midfoot with necrosis of bone | CPT/HCPCS: 99183 ==

== ENCOUNTER → 2016-12-15 | Outpatient (CLI) | payer OTHER ==
[2016-12-15 15:29] LABS: BASOPHILS % (AUTO) 0.3 % (0-2); EOSINOPHILS # (AUTO) 0.1 T/MM3 (0-0.5); EOSINOPHILS % (AUTO) 1.8 % (0-4); HCT - HEMATOCRIT 36.1 % (36-46); HGB - HEMOGLOBIN 12.4 GM/DL (12-16); IMMATURE GRANULOCYTE # (AUTO) 0.01 T/MM3 (0.00-0.03); IMMATURE GRANULOCYTE % (AUTO) 0.1 % (0.0-0.5); LYMPHOCYTES # (AUTO) 2.2 T/MM3 (1-4.8); LYMPHOCYTES % (AUTO) 32.7 % (23-45); MEAN CORPUSCULAR HGB 30.8 UUG (26-34); MEAN CORPUSCULAR HGB CONC(MCHC 34.3 GM/DL (31-37); MEAN CORPUSCULAR VOLUME 89.8 UM3 (80-100); MEAN PLATELET VOLUME 8.5 UM3 (9.4-12.4); MONOCYTES # (AUTO) 0.4 T/MM3 (0-0.8); NEUTROPHILS % (AUTO) 59.1 % (33-66); RED BLOOD COUNT 4.02 M/MM3 (4.00-5.20); WBC - WHITE BLOOD COUNT 6.8 T/MM3 (4.5-11.0)
[2016-12-15 15:40] LABS: ANION GAP 14 MEQ/L (5-15); BUN/CREATININE RATIO 19 RATIO (6-26); C-REACTIVE PROTEIN < 5.0 MG/L (0-9); CALCIUM 9.4 MG/DL (8.4-10.2); CHLORIDE 103 MEQ/L (98-107); CO2 - CARBON DIOXIDE 28 MEQ/L (22-30); CREATININE 0.9 MG/DL (0.7-1.2); GLOMERULAR FILTRATION RATE 65; GLUCOSE 276 MG/DL (65-110); POTASSIUM 3.6 MEQ/L (3.6-5); SODIUM 145 MEQ/L (134-144)
== END ==
LOC: LAB 14:35
PROVIDERS: ATTEND Internal Medicine Infectious Disease
DX: E11.621 Type 2 diabetes mellitus with foot ulcer (principal); M86.171 Other acute osteomyelitis, right ankle and foot; L97.414 Non-pressure chronic ulcer of right heel and midfoot with necrosis of bone
CPT/HCPCS: 36415; 80048; 85025; 86140

== ENCOUNTER 2017-04-28 15:13 | Inpatient (IN) ==
[2017-04-28 15:07] VITALS: BMI 25.4
--- NOTE | 2017-04-28 15:09 | History & Physical Report ---
<Sophie Martins V - Last Filed: 04/28/17 15:05> History of Present Illness Date: 04/28/17 Chief complaint: Right foot wound HPI: Rebecca is a 56 year old female with known hisotry of Right foot ulcer that has been chronic. Is hospitalized last spring in October for diabetic foot ulcer on the right 1st metatarsal. She ended up being on IV antibiotics, daptomycin for 6 weeks. She was followed in the wound care center by Dr. Chowdhury and by Dr. Huang. She has continued to go to routine wound care and was last seen on by Dr. Barbosa. At that time debridement was completed of the right 1st metatarsal tissue. Patient recently returned back to work it which time she is standing on her feet for 18 hours a day. She reports that over the past 5 days, swelling and erythema of the right foot has worsened and redness is not spreading up the leg. She presented to see primary care provider, Dr. Salcido today who recommended direct admission to the hospital for further acute evaluation and treatment. On arrival to [facility], room 112. Patient is seen and examined. She does admit to working 60-70 hour weeks for the last 2 weeks on her feet and has not been allowing any time for rest as instructed. She reports that she has been taking Cipro 500 milligrams tabs twice a day for several weeks, as this was leftover from previous infection. She denies having any fevers or chills. No nausea, vomiting or diarrhea. Did discuss advanced directives and she does wish to be a full code Review of Systems All systems PM: 10-point ROS was reviewed, no additional remarkable complaints except - Constitutional Constitutional: Present: fatigue - Musculoskeletal Musculoskeletal: Present: as per HPI - Integumentary/Breasts Integumentary: Present: as per HPI, erythema (right lower extremity), wounds ( right 1st metatarsal) [facility] Medical History Right foot ulcer- acutely worse, chronic Diabetes mellitus type 2, uncontrolled, without complications Diabetic peripheral neuropathy associated with type 2 diabetes mellitus Vitamin D deficiency Hypertension History of osteomyelitis- right foot diabetic foot ulcer with sesamoidectomy 2016 Surgical History: Debridement of right foot diabetic foot ulcer with sesamoidectomy- 10/31/16 (Dr Chowdhury). Family History: Family History Maternal Grandmother Diabetes Paternal Grandmother Diabetes Father High blood pressure Stroke Heart disease Mother High blood pressure Maternal Grandfather Lung cancer - Social History Smoking status: Never smoker Substance use type: does not use Alcohol intake frequency: does not drink Housing: house Current occupational status: employed Current occupational exposures/hazards: Yes (Long shifts up to 16-18 hours a day standing on feet) Current residence: Apartment/Private Home Social history: PCP Dr Salcido Medications Home Medications Medication Instructions Recorded Confirmed Type Venlafaxine HCl [Venlafaxine HCl 75 mg PO DAILY #0 10/03/16 04/28/17 History ER] Cipro (ciprofloxacin) 500 mg tablet 500 mg PO BID tab 03/24/17 04/28/17 History Mapap Extra Strength 500 mg tablet 500 mg PO Q6H PRN 03/24/17 History Toujeo Solostar (insulin glargine) 15 unit SQ HS ml 03/24/17 History 300 unit/mL (1.5 mL) SQ PEN cholecalciferol (vitamin D3) 2,000 2,000 unit PO DAILY cap 03/24/17 History unit capsule Allergies Allergy/AdvReac Type Severity Reaction Status Date / Time No Known Allergies Allergy Unverified 04/28/17 15:29 Exam - Constitutional Present: no acute distress, well nourished, well developed - Routine HEENT Exam Eye: Present: EOMI ENT: Present: mucous membranes moist, dentition normal - Routine Respiratory Exam Present: CTA bilaterally. Absent: wheezes - Routine Cardiovascular Exam Present: RRR, S1, S2. Absent: murmur - Routine Abdominal Exam Present: soft, normoactive bowel sounds, non distended. Absent: tenderness - Routine Extremities Exam Present: edema (trace edema to RLE), normal capillary refill - Routine Back/Spine/Pelvis Exam Back/Spine: Present: full ROM - Routine Skin Exam Present: intact, erythema, dry, warm - Routine Neurological Exam Present: alert, oriented X3, CN II-XII intact - Routine Psychiatric Exam Present: normal affect, normal thought process, cooperative Assessment and Plan (1) Foot ulcer, right Problem details: Slow healing should improve as diabetes comes under better control. Current visit: No Status: Chronic (2) Failure of outpatient treatment Current visit: Yes Status: Acute DVT Prophylaxis: Lovenox Resuscitation Status: Full Code Assessment and Plan: Impression Right foot diabetic foot ulcer Failed outpatient treatment Diabetes Peripheral neuropathy Hypertension Vitamin D Deficiency Depression Plan Admit patient as a inpatient status under the care of Dr Padron for Right foot ulcer, Failed outpatient treatment The following laboratory studies are ordered on admission. CBC, CMP, blood cultures 2, venous lactate, pro calcitonin, urinalysis. Patient has been taking Cipro 500mg BID for (several weeks). Was last seen at wound care center on 04/16 for debridement. Initiate IV Zosyn and vancomycin for antimicrobial coverage. Consultation placed to Dr. Huang for further infectious disease recommendations. Will evaluate for Sepsis. qSOFA score- 0/3 on admission Consultation placed to Dr Chowdhury for further evaluation. Obtain Xray of right foot on admission. Will monitor Accu-checks, Hgb A1C ordered on admission. Continue with home diabetes education regimen including Toujeo 15 units at HS and Novolog 6 units with meals. Carb Consistent diet. Lovenox SQ daily for DVT prophylaxis Follow CBC and BMP tomorrow morning Case discussed with attending, Dr Padron At time of discharge medical care will return to primary care provider, Dr. Salcido Hospital Course Summary Disclaimer: The visit summary below is not to be considered part of the above Progress Note. <NereidaKimberly Cochran - Last Filed: 04/28/17 19:28> History of Present Illness Date: 04/28/17 Exam Vital Signs: Temperature 97.2 F 04/28/17 17:03 Pulse Rate 88 04/28/17 17:03 Respiratory Rate 18 04/28/17 17:03 Blood Pressure 148/73 H 04/28/17 17:03 Pulse Oximetry 98 04/28/17 17:03 Height/Weight/BMI: Height 1.65 m Weight 69.3 kg Body Mass Index 25.4 Results - Labs CBC & Chem 7: 04/28/17 15:33 04/28/17 15:33 Microbiology Results: Microbiology 04/28/17 15:33 Peripheral/Iv Start Blood Culture - Preliminary Culture Initiated - Results Pending 04/28/17 15:48 Peripheral/Iv Start Blood Culture - Preliminary Culture Initiated - Results Pending Assessment and Plan (1) Foot ulcer, right Problem details: Slow healing should improve as diabetes comes under better control. Current visit: No Status: Chronic (2) Failure of outpatient treatment Current visit: Yes Status: Acute Assessment and Plan: I have independently evaluated and examined this patient. I reviewed the chart, the patient's history, and the [employer]/PA's documented findings as above. We discussed and formulated the assessment and plan as above with additions as below: Rebecca was seen late afternoon with family members at the bedside. She describes four-day history of increased swelling and progressive redness in her right foot while on oral antibiotics. She's had no fever but did have emesis on the morning of admission. She describes pain with ambulation and weightbearing. She was afebrile when initially evaluated by Dr. Salcido and on arrival at the hospital. A1c is moderately elevated at 8.5 but significantly improved from level above 15 in October of this year. The patient is alert and cooperative, speech is fluent Respirations nonlabored, good airflow, breath sounds clear Regular cardiac rhythm, S1-S2 Abdomen is soft and nontender Trace edema left ankle; there is erythema across the metatarsals on the right foot and along the forefoot on the plantar surface. There is a 1-1/2-2 cm ulcer on the plantar surface under the 1st metatarsal head. Erythema does not extend to the mid foot. Wound culture was obtained by Dr. Salcido in the office; white count as noted. MRI pending. Plain films of the foot reviewed by myself demonstrating ulceration under the first metatarsal head and erosion in the first metatarsal head. Past cultures reviewed-patient has had several gram-positive and gram negatives organisms previously, broad-spectrum antibiotics initiated. Plans discussed with Dr. Chowdhury, surgical intervention anticipated tomorrow. Case discussed with Dr. Salcido prior to patient arrival. Old records reviewed. Please note the medications listed above have not been updated and do not reflect current home medications. Hospital Course Summary Disclaimer: The visit summary below is not to be considered part of the above Progress Note.
[~2017-04-28 15:13] MED LIST changes: -AMLO5TAB2 PO; -DAPT500V3 IV; -DOCU-168 PO; -HYDR-4246 PO; -INSU100V SQ; -INSU100V8 SQ; -METO5TAB2 PO; -ONDA4TAB7 PO; +VANCOMYCIN - PHARMACY CONSULT MC ONE; -VENL-68 PO
[2017-04-28] MEDS ORDERED: PIPERACILLIN/TAZOBACTAM 3.375 GM in NS 100 ML IV SCH (15:15)
--- NOTE | 2017-04-28 15:36 | Pharmacy Consult-Antibiotics ---
Pharmacy Consult-Vancomycin - Consult Information VANCOMYCIN CONSULT: Dx: FOOT ULCER Current Renal Fx: SCr = 0.9 mg/dl on 12/15/16. Will give Vancomycin 1,500mg loading dose then 1,250mg ivpb q12h. Will continue to monitor and adjust regimen to maintain therapeutic levels. Thank you.
--- NOTE | 2017-04-28 16:42 | XRay Report ---
Indication: 1st meta foot wound PROCEDURE: XR foot RT min 3V: Encounter: Initial Comparison: October 03, 2016 Findings: New erosions in the first metatarsal head medially with an overhanging edge. There is associated increased density in the soft tissues with preservation of the joint space. Hallux valgus deformity. No acute fracture or dislocation. New plantar soft tissue defect seen underlying the first metatarsal head on the lateral view. Impression: New erosions in the first metatarsal head with an appearance most suggestive of gout. Given the nearby skin ulceration osteomyelitis would also be within the differential. .
--- NOTE | 2017-04-28 16:57 | Orthopedic Consult Note ---
Orthopedic Consultation HPI - Consultation Info Consult Date: 04/28/17 Attending Physician: Kimberly Padron MD Consult Reason: other (right foot diabetic foot ulcer) - History of Present Illness Mrs. Hess is a kind 86-year-old female well-known to me from previous issues with the same foot. On her last hospitalization she had osteomyelitis of her medial sesamoid per MRI and this was removed surgically. She then treated with wound VAC and discharged to be treated as an outpatient where she was treated in the wound center. Per report from the patient she was doing well until she started to return to work where she was working eight-hour days. She then began having increased pain and erythema to the foot and was seen by her primary care physician today who recommended admission to the hospital where she was admitted by the hospitalist. I was consult to look for further evaluation of the right foot diabetic foot ulceration. Review of Systems - Constitutional Constitutional: Absent: chills, fever(s), night sweats - Cardiovascular Cardiovascular: Absent: chest pain, palpitations - Respiratory Respiratory: Absent: cough, dyspnea - Gastrointestinal Gastrointestinal: Absent: abdominal pain, nausea, vomiting - Genitourinary Genitourinary Female: Absent: dysuria - Musculoskeletal Musculoskeletal: Present: as per HPI - Integumentary/Breasts Integumentary: Absent: lesions, rash - Neurological Neurological: Absent: numbness, tingling PFSH Patient Stated Medical History Diabetes Mellitus Type 2 Yes Anesthesia Reactions Yes: causes nausea/vomiting Depression Yes Clinic Medical History (Last Updated 03/24/17 @ 09:04 by Adelfo Wu MD) Diabetes mellitus type 2, uncontrolled, without complications (Chronic Medical ~ 10/2016) Control is improving but not yet to target. Diabetic peripheral neuropathy associated with type 2 diabetes mellitus ( Chronic Medical) Moderate. Vitamin D deficiency (Chronic Medical ~03/2017) Will need larger dose of vitamin D. Hypertension (Chronic Medical) Good control. Foot ulcer, right (Chronic Medical) Slow healing should improve as diabetes comes under better control. Surgical History: Debridement of right foot diabetic foot ulcer with sesamoidectomy- 10/31/16 (Dr Chowdhury). Family History: Family History (Last Reviewed 03/24/17 @ 08:43 by Adelfo Wu MD) Maternal Grandmother Diabetes Paternal Grandmother Diabetes Father High blood pressure Stroke Heart disease Mother High blood pressure Maternal Grandfather Lung cancer - Social History Smoking status: Never smoker Current residence: Apartment/Private Home Medications Home Medications Medication Instructions Recorded Confirmed Type Venlafaxine HCl [Venlafaxine HCl 75 mg PO DAILY #0 10/03/16 04/28/17 History ER] Cipro (ciprofloxacin) 500 mg tablet 500 mg PO BID tab 03/24/17 04/28/17 History Mapap Extra Strength 500 mg tablet 500 mg PO Q6H PRN 03/24/17 History Toujeo Solostar (insulin glargine) 15 unit SQ HS ml 03/24/17 History 300 unit/mL (1.5 mL) SQ PEN cholecalciferol (vitamin D3) 2,000 2,000 unit PO DAILY cap 03/24/17 History unit capsule Allergies Allergy/AdvReac Type Severity Reaction Status Date / Time No Known Allergies Allergy Unverified 04/28/17 15:29 Orthopedic Exam Vital signs: Temperature 96.4 F L 04/28/17 14:05 Pulse Rate 85 04/28/17 14:05 Respiratory Rate 16 04/28/17 14:05 Blood Pressure 145/78 H 04/28/17 14:05 Pulse Oximetry 100 04/28/17 14:05 - Constitutional General Appearance: Present: no acute distress, well developed, well nourished - Respiratory Exam Present: non-labored - Cardiovascular Exam Present: pedal pulses intact - Extremities Exam Present: edema (trace edema to RLE), normal capillary refill Comments: She has decreased sensation to light touch over the dorsum and plantar aspect of the right foot. She has good dorsalis pedis pulse. She has macerated skin as well as callus formation surrounding a diabetic foot ulcer centered over the plantar aspect of the first metatarsal head. The ulceration bed contains 100% necrotic subcutaneous tissue. There is macerated skin travels into the first webspace. She has good cap refill to all digits and good color in all digits. - Integumentary Exam Present: pink, warm, dry - Psychiatric Exam Present: alert, normal affect - Labs Result Diagrams: 04/28/17 15:33 04/28/17 15:33 Abnormal lab results 04/28/17 04/28/17 Range/Units 15:33 15:33 RBC 3.58 L (4.00-5.20) M/MM3 Hgb 11.3 L (12-16) GM/DL Hct 33.7 L (36-46) % MPV 9.2 L (9.4-12.4) UM3 BUN 21.0 H (7-17) MG/DL BUN/Creatinine Ratio 30 H (6-26) RATIO Glucose 295 H (65-110) MG/DL Hemoglobin A1c 8.5 H (6.1-7.9) % Calculated Osmolality 289 H (261-280) MOSM/KG Globulin 3.8 H (2.4-3.6) G/DL H & H 04/28/17 Range/Units 15:33 Hgb 11.3 L (12-16) GM/DL Hct 33.7 L (36-46) % Impression and Recommendation (1) Ulcer of right foot due to type 2 diabetes mellitus Current visit: Yes Status: Chronic I recommended an MRI for further evaluation of deep abscess or osteomyelitis. She will require surgical debridement as well as likely bone biopsy. I do think she is at risk of amputation especially given her history of relapsed with this ulceration. We'll await the MRI results before planning surgical intervention which will hopefully be tomorrow if not and . Likely apply wound VAC and surgery. (2) Diabetes mellitus type 2, uncontrolled, without complications Problem details: Control is improving but not yet to target. Current visit: No Status: Chronic (3) Foot ulcer, right Problem details: Slow healing should improve as diabetes comes under better control. Current visit: No Status: Chronic Hospital Course Summary Disclaimer: The visit summary below is not to be considered part of the above Progress Note.
[2017-04-28] MEDS: ENOXAPARIN 30 MG/0.3 ML INJECTION SQ SCH (17:33)
[2017-04-28] MEDS: NS FLUSH BAG 500ml IV PRN (17:34)
[2017-04-28] MEDS ORDERED: GADOBUTROL 10mMol/10ml INJECTION IVP ONE (17:59)
[2017-04-28] MEDS ORDERED: SALINE FLUSH 10ml SYRINGE ONE (18:00)
[2017-04-28] MEDS: ACETAMINOPHEN 325 MG TABLET PO PRN (20:12)
[2017-04-28] MEDS: INSULIN GLARGINE 100unit/ml INJECTION SQ SCH (21:47)
[2017-04-28] MEDS: AMLODIPINE 5 MG TABLET PO SCH (21:47)
[2017-04-29] MEDS: PIPERACILLIN/TAZOBACTAM 3.375 GM in NS 100 ML IV SCH ×4 (00:10→17:47)
[2017-04-29] MEDS ORDERED: INSULIN REGULAR, HUMAN 100 UNIT/ML INJECTION SQ ONE (06:45)
--- NOTE | 2017-04-29 08:15 | Magnetic Resonance Report ---
Indication: Foot ulcer rule out abscess and osteomyelitis PROCEDURE: MR foot RT wo/w con: Encounter: Initial Comparison: Radiographs dated April 28, 2017 and MRI foot dated October 06, 2016 Technique: Multiplanar multisequence MR imaging of the right foot was performed with and without contrast. Contrast: 7 mL Gadavist Findings: New osseous erosions in the medial first metatarsal head. There is new edema in the distal first metatarsal shaft and metatarsal head. There is also edema in the medial sesamoid bone of the first metatarsal is noted on the prior study overlying skin ulceration. Trace edema in the tip of the great toe distal phalanx is unchanged. Diffuse edema within the intrinsic musculature of the foot is unchanged. The remaining bone marrow signal intensity is grossly normal and stable from the prior study. The extensor and flexor tendons are grossly intact. There is no rim-enhancing abscess or focal fluid collection appreciated. Impression: New juxta articular osseous erosions in the first metatarsal head. The radiographic appearance is fairly distinctive for gout. This could represent acute gout superimposed upon a pre-existing baseline level of osteomyelitis as evidenced by the prior exams. Both processes could be present in the first metatarsal head. Bone biopsy and/or joint aspiration may be helpful to further evaluate these findings. .
[2017-04-29] MEDS: AMLODIPINE 5 MG TABLET PO SCH ×2 (08:25→21:14)
[2017-04-29] MEDS: INSULIN ASPART 100unit/ml INJECTION SQ SCH ×4 (08:25→17:47)
[2017-04-29] MEDS: Venlaflaxine XR 75 MG CAPSULE (24hr) PO SCH (08:25)
--- NOTE | 2017-04-29 08:55 | Infectious Disease Consult ---
Infectious Disease Consult Date of Consultation: 04/29/17 Requesting Physician: Kimberly Padron Reason for Consultation: antibiotic recs History of Present Illness: Ms. Deshawn Lopez is a 56 y/o woman known to me from prior admission. She has a h/o diabetic foot infection and osteomyelitis of the R sesamoid bone. This was resected and she was treated with IV antibiotics for 6 weeks. She has undergone HBO treatments and this wound at the plantar surface of the 1st MT head was decreased to a "dime size." She reports that she has been on her foot for more than 12 hours per day at work. She reports that the 1st 2 toes were bright red yesterday. She says that she's still been taking the cipro I gave her, although I last saw her on 04/01, and I thought she was going to finish it out in the next 2 weeks. She had an X-ray and an MRI yesterday that were consistent with osteo vs gout. She's been started on Vancomycin and Zosyn. She states that Dr. Salcido obtained a wound culture yesterday, and this is growing Staph aureus. Medications Home Medications Medication Instructions Recorded Confirmed Type Venlafaxine HCl [Venlafaxine HCl 75 mg PO DAILY #0 10/03/16 04/28/17 History ER] Cipro (ciprofloxacin) 500 mg tablet 500 mg PO BID tab 03/24/17 04/28/17 History Mapap Extra Strength 500 mg tablet 500 mg PO Q6H PRN 03/24/17 04/28/17 History Insulin Glargine [Lantus] 15 units HS 04/28/17 04/28/17 History Allergies Allergy/AdvReac Type Severity Reaction Status Date / Time No Known Allergies Allergy Unverified 04/28/17 15:29 [facility] Patient Stated Medical History Diabetes Mellitus Type 2 Yes Anesthesia Reactions Yes: causes nausea/vomiting Depression Yes Clinic Medical History (Last Updated 03/24/17 @ 09:04 by Adelfo Wu MD) Diabetes mellitus type 2, uncontrolled, without complications (Chronic Medical ~ 10/2016) Control is improving but not yet to target. Diabetic peripheral neuropathy associated with type 2 diabetes mellitus ( Chronic Medical) Moderate. Vitamin D deficiency (Chronic Medical ~03/2017) Will need larger dose of vitamin D. Hypertension (Chronic Medical) Good control. Foot ulcer, right (Chronic Medical) Slow healing should improve as diabetes comes under better control. Surgical History: Debridement of right foot diabetic foot ulcer with sesamoidectomy- 10/31/16 (Dr Chowdhury). Family History: Family History (Last Reviewed 03/24/17 @ 08:43 by Adelfo Wu MD) Maternal Grandmother Diabetes Paternal Grandmother Diabetes Father High blood pressure Stroke Heart disease Mother High blood pressure Maternal Grandfather Lung cancer - Social History Smoking status: Never smoker Substance use type: does not use Current residence: Apartment/Private Home Review of Systems All systems PM: 10-point ROS was reviewed, no additional remarkable complaints except - Constitutional Constitutional: Absent: chills, fever(s), headache(s) - EENMT Eyes: Absent: change in vision - Cardiovascular Cardiovascular: Absent: chest pain - Respiratory Respiratory: Absent: cough, dyspnea - Gastrointestinal Gastrointestinal: Absent: abdominal pain, diarrhea, nausea, vomiting - Musculoskeletal Musculoskeletal: Present: other (swelling and redness of her R foot) - Integumentary/Breasts Integumentary: Present: erythema (of R toes). Absent: rash - Neurological Neurological: Absent: headache(s) Exam Vital Signs: Temperature 96.6 F L 04/29/17 08:27 Pulse Rate 78 04/29/17 08:27 Respiratory Rate 14 04/29/17 08:27 Blood Pressure 146/76 H 04/29/17 08:27 Pulse Oximetry 100 04/29/17 08:27 Height/Weight/BMI: Height 1.65 m Weight 69.4 kg Body Mass Index 25.4 - Constitutional Present: no acute distress, well nourished, well developed - Routine HEENT Exam Head: Present: normocephalic, atraumatic Eye: Present: EOMI, PERRL ENT: Present: mucous membranes moist - Routine Neck Exam Present: supple - Routine Respiratory Exam Present: CTA bilaterally - Routine Cardiovascular Exam Present: RRR. Absent: murmur - Routine Abdominal Exam Present: soft, normoactive bowel sounds, non distended. Absent: tenderness - Routine Extremities Exam Absent: cyanosis, clubbing Comments: trace edema R foot, it's wrapped - Routine Skin Exam Absent: rash Comments: she has a wound on the plantar surface of the 1st MT head R foot. I can't visualize this completely because her foot is wrapped. I don't appreciate any significant erythema of her toes currently. - Routine Neurological Exam Present: alert, oriented X3, CN II-XII intact - Routine Psychiatric Exam Present: normal affect Results - Labs CBC & Chem 7: 04/29/17 04:37 04/29/17 04:37 Microbiology Results: Microbiology 04/28/17 15:33 Peripheral/Iv Start Blood Culture - Preliminary Culture Initiated - Results Pending 04/28/17 15:48 Peripheral/Iv Start Blood Culture - Preliminary Culture Initiated - Results Pending - Impressions MRI report 04/28: Impression: New juxta articular osseous erosions in the first metatarsal head. The radiographic appearance is fairly distinctive for gout. This could represent acute gout superimposed upon a pre-existing baseline level of osteomyelitis as evidenced by the prior exams. Both processes could be present in the first metatarsal head. Bone biopsy and/or joint aspiration may be helpful to further evaluate these findings. Impression: Recurrent R diabetic foot infection and osteomyelitis. Superficial wound culture 04/28 with S. aureus. Right Diabetic foot infection/osteomyelitis status post irrigation and debridement on October 07, 2016, cultures with Enterococcus faecalis sensitive to ampicillin and coagulase- negative staph. Status post repeat debridement with right foot sesamoidectomy on October 31, 2016. Bone cultures with Klebsiella oxytoca and coagulase-negative staph with pathology showing osteomyelitis. Diabetes mellitus type 2, non-insulin dependent, poorly controlled with HgA1c greater than 15 during her October hospitalization. Hgb A1C was 7.1 the end of March. Hypertension. History of acute kidney injury secondary to ATN, improved. H/o Intermittent nausea and vomiting, chronic, question secondary to gastroparesis. Depression. Recommendation: Await surgical plans. She thinks she is going for an I&D today. Continue current antibiotics for now. She tells me she is worried about her kidneys. I suspect she will need another course of IV antibiotics for 6 weeks. I'm not optimistic this will heal since she had 6 weeks of IV antibiotics, and has completed HBO therapy and this wound never completely healed.
[2017-04-29] MEDS: LR 1,000 ML IV SCH ×3 (11:27→17:50)
--- NOTE | 2017-04-29 12:00 | Anesthesia Preoperative Report ---
Anesthesia Preoperative Record - Date and Time Date: 04/29/17 Preoperative Diagnosis: R foot ulcer Proposed Procedure: right great toe debridement NPO Since Date: 04/28/17 NPO Since Time: 23:00 Allergies/Adverse Reactions: Allergies Allergy/AdvReac Type Severity Reaction Status Date / Time No Known Allergies Allergy Unverified 04/28/17 15:29 - Vital Signs Vital Signs: Temperature 98.3 F 04/29/17 11:12 Pulse Rate 78 04/29/17 11:16 Respiratory Rate 16 04/29/17 11:12 Blood Pressure 147/71 H 04/29/17 11:12 Pulse Oximetry 99 04/29/17 11:12 Height and Weight: Height 5 ft 5 in Weight 69.4 kg Body Mass Index 25.4 - Medications Inpatient Medications: Current Medications Acetaminophen (Tylenol) 650 mg PO QID PRN PRN Reason: Pain Last Admin: 04/28/17 20:12 Dose: 650 mg Amlodipine Besylate (Norvasc) 5 mg PO BID [facility] Last Admin: 04/29/17 08:25 Dose: Not Given Enoxaparin Sodium (Lovenox) 30 mg SQ DAILY [facility] Last Admin: 04/28/17 17:33 Dose: 30 mg Vancomycin HCl 1,250 mg/ (Sodium Chloride) 250 mls @ 200 mls/hr IV Q12H [facility] Last Infusion: 04/29/17 08:05 Dose: Infused Piperacillin Sod/Tazobactam (Sod 3.375 gm/ Sodium Chloride) 100 mls @ 200 mls/ hr IV Q6H [facility] Last Infusion: 04/29/17 06:08 Dose: Infused Lactated Ringer's (Lactated Ringers) 1,000 mls @ 100 mls/hr IV .Q10H [facility] Last Admin: 04/29/17 11:27 Dose: 100 mls/hr Insulin Aspart (Novolog) 6 unit SQ AC15 [facility] Last Admin: 04/29/17 08:49 Dose: 6 unit Insulin Glargine (Lantus) 15 unit SQ HS [facility] Last Admin: 04/28/17 21:47 Dose: 15 unit Sodium Chloride (Normal Saline) 500 ml IV PRN PRN Last Admin: 04/28/17 17:34 Dose: 500 ml Venlafaxine HCl (Effexor Xr) 75 mg PO DAILY [facility] Last Admin: 04/29/17 08:25 Dose: Not Given Home Medications: Home Medications Medication Instructions Recorded Confirmed Type Venlafaxine HCl [Venlafaxine HCl 75 mg PO DAILY #0 10/03/16 04/28/17 History ER] Cipro (ciprofloxacin) 500 mg tablet 500 mg PO BID tab 03/24/17 04/28/17 History Mapap Extra Strength 500 mg tablet 500 mg PO Q6H PRN 03/24/17 04/28/17 History Insulin Glargine [Lantus] 15 units HS 04/28/17 04/28/17 History Is Patient on Beta Tri?: No - Medical History Respiratory: DENIES: Asthma Cardiovascular: Reports: Coronary Artery Disease, Hypertension DENIES: Angina, Congestive Heart Failure Gastrointestional: DENIES: Gastroesophageal Reflux Disease Renal/Endocrine: Reports: Diabetes Mellitus Type 2 Other History: Reports: Anesthesia Reactions (nausea, vomiting) - Surgical History Anesthesia Reactions: None Hx Family Anesthesia Reaction: No History of Motion Sickness: No - Social History Smoking Status: Never smoker Hx Chewing Tobacco Use: No Second Hand Exposure: No Substance Use Type: does not use Alcohol Intake Frequency: does not drink - Pertinent Findings Laboratory: CBC and BMP 04/29/17 04:37 04/29/17 04:37 BMP 04/28/17 04/29/17 15:33 04:37 Sodium 143 142 Potassium 3.8 3.6 Chloride 104 106 Carbon Dioxide 27 28 BUN 21.0 H 17.0 Creatinine 0.7 0.7 Glucose 295 H 201 H Calcium 9.9 9.2 Liver Function 04/28/17 Range/Units 15:33 Total Bilirubin 0.50 (0.20-1.30) MG/DL AST 24 (14-36) U/L ALT 36 (9-52) U/L Alkaline Phosphatase 97 (38-126) U/L Albumin 4.1 (3.5-5.0) G/DL Urine 04/28/17 Range/Units 16:56 Urine Color Yellow (YELLOW) Urine Clarity Clear Urine pH 6.0 (5.0-8.0) Ur Specific [place] 1.015 (1.015-1.025) Urine Protein Negative (NEGATIVE) Urine Glucose (UA) 3+ A (NEGATIVE) EKG: Sinus Rhythm - Physical Exam Respiratory Exam: Present: lungs clear, bilateral breath sounds equal Cardiovascular Exam: Present: regular rate and rhythm - Airway Assessment Mallampati Score: II TMD: 3 Fingerbreadths Neck Extension: good Overall Assessment: no airway concerns - ASA ASA Score: 3 - Plan Anesthesia: General TIVA - Discussion Discussion: Discussed risks/options/alternatives of anesthesia and questions answered. Patient consents. Nursing pain assessment noted. Attestation Statement: Prior to the delivery of any anesthetic medication, I examined the patient, developed the plan, obtained the patient's consent and discussed the risk and benefits of the procedure with the patient/guardian. - Additional Information Seen by Anesthesia: Yes
[2017-04-29] MEDS ORDERED: FentaNYL 100 MCG/2 ML INJECTION ONE (12:06)
[2017-04-29] MEDS ORDERED: MIDAZOLAM 2mg/2ml INJECTION ONE (12:06)
[2017-04-29] MEDS ORDERED: PROPOFOL 500 MG/50 ML VIAL IV ONE (12:10)
[2017-04-29] MEDS ORDERED: PROPOFOL 20 ML ONE (12:42)
[2017-04-29] MEDS ORDERED: METOCLOPRAMIDE 10mg/2ml INJECTION IVP PRN (12:51)
[2017-04-29] MEDS ORDERED: HYDROMORPHONE 2 MG/ML INJECTION IVP PRN (12:51)
[2017-04-29] MEDS ORDERED: ONDANSETRON 4 MG/2 ML INJECTION IVP PRN (12:51)
[2017-04-29] MEDS ORDERED: BUPIV 0.25% 30ml/LIDO 1% 30ml MIXTURE ID ONE (13:04)
--- NOTE | 2017-04-29 13:14 | Anesthesia Postoperative Note ---
- Date and Time Date: 04/29/17 Time: 13:12 - Status Patient Participated in Evaluation: Patient Participated in Person Vital Signs: Temperature 98.3 F 04/29/17 11:12 Pulse Rate 78 04/29/17 11:16 Respiratory Rate 16 04/29/17 11:12 Blood Pressure 147/71 H 04/29/17 11:12 Pulse Oximetry 99 04/29/17 11:12 Respiratory Function: Airway Patent Cardiovascular Function: Regular Pulse EKG: Sinus Rhythm Mental Status: Alert and Oriented Pain Intensity: 0 Hydration: IV Infusing Complications During Recover: None Apparent Post Anesthesia Care Notes: Blood glucose at 85 with repeat in PACU. This was a significant drop from previous BG this morning. Patient is awake and doing well. Orders to feed her in the PACU and have follow up BG on the floor. - Follow-Up Instructions Instructions: Per Surgeon
--- NOTE | 2017-04-29 15:12 | Progress Note ---
<Katherin Pierre - Last Filed: 04/29/17 15:08> Subjective: Patient was seen sitting in her bed today. She is post surgical debridement and bone biopsy by Dr. Chowdhury earlier this afternoon. Right now she states she is not having any pain. She states she is having no chest pain, shortness of breath, nausea or vomiting. She states yesterday she vomited but she thinks it is related to stress. Her appetite is normal. Objective Vital signs: Temperature 97.0 F 04/29/17 13:45 Pulse Rate 82 04/29/17 14:45 Respiratory Rate 20 04/29/17 13:45 Blood Pressure 144/70 H 04/29/17 14:45 Pulse Oximetry 99 04/29/17 14:45 Height/Weight/BMI: Height 1.65 m Weight 69.4 kg Body Mass Index 25.4 - Constitutional Present: no acute distress, well nourished, well developed - Routine HEENT Exam Head: Present: atraumatic - Routine Respiratory Exam Present: CTA bilaterally. Absent: wheezes - Routine Cardiovascular Exam Present: RRR, S1, S2. Absent: murmur - Routine Abdominal Exam Present: soft, normoactive bowel sounds, non distended. Absent: tenderness - Routine Extremities Exam Present: edema (1+ to right foot. Wound VAC/dressing is intact.), no edema ( left lower extremity), normal capillary refill - Routine Skin Exam Present: dry, warm - Routine Neurological Exam Present: alert, oriented X3 - Routine Lymphatic Exam Lymphatic: Absent: adenopathy - Routine Psychiatric Exam Present: normal affect, normal thought process, cooperative Results - Labs CBC & Chem 7: 04/29/17 04:37 04/29/17 04:37 Microbiology Results: Microbiology 04/29/17 13:11 Foot, Right Gram Stain - Final 04/29/17 13:11 Foot, Right Surgical Culture - Preliminary Culture Initiated - Results Pending 04/28/17 15:33 Peripheral/Iv Start Blood Culture - Preliminary Culture Initiated - Results Pending 04/28/17 15:48 Peripheral/Iv Start Blood Culture - Preliminary Culture Initiated - Results Pending Assessment and Plan (1) Foot ulcer, right Problem details: Slow healing should improve as diabetes comes under better control. Current visit: No Status: Chronic (2) Failure of outpatient treatment Current visit: Yes Status: Acute Assessment and Plan: Impression Right foot diabetic foot ulcer/osteomyelitis Failed outpatient treatment Diabetes Peripheral neuropathy Hypertension Vitamin D Deficiency Depression Plan Continue antibiotics as currently ordered. Dr. Huang is involved in patient's care at this time. Order for senna daily at bedtime and MiraLAX daily for bowel motivation especially given narcotic usage for foot pain. Continue to follow blood sugars and adjust insulin as needed. Repeat CBC and BMP in a.m. to monitor blood counts, electrolytes, and renal function. Hospital Course Summary Disclaimer: The visit summary below is not to be considered part of the above Progress Note. Hospital Course: Right foot diabetic foot ulcer Failed outpatient treatment Diabetes Peripheral neuropathy Hypertension Vitamin D Deficiency Depression 04/28/17-hospital admission Admit patient as a inpatient status under the care of Dr Padron for Right foot ulcer, Failed outpatient treatment The following laboratory studies are ordered on admission. CBC, CMP, blood cultures 2, venous lactate, pro calcitonin, urinalysis. Patient has been taking Cipro 500mg BID for (several weeks). Was last seen at wound care center on 04/16 for debridement. Initiate IV Zosyn and vancomycin for antimicrobial coverage. Consultation placed to Dr. Huang for further infectious disease recommendations. Will evaluate for Sepsis. qSOFA score- 0/3 on admission Consultation placed to Dr Chowdhury for further evaluation. Obtain Xray of right foot on admission. Will monitor Accu-checks, Hgb A1C ordered on admission. Continue with home diabetes education regimen including Toujeo 15 units at HS and Novolog 6 units with meals. Carb Consistent diet. Lovenox SQ daily for DVT prophylaxis Follow CBC and BMP tomorrow morning Case discussed with attending, Dr Padron At time of discharge medical care will return to primary care provider, Dr. Salcido 04/29/17 Dr. Chowdhury performed surgical debridement and bone biopsy today. Results are pending. Continue Zosyn and vancomycin as currently ordered. Dr. Huang is involved in patient's care at this time. Order for senna daily at bedtime and MiraLAX daily for bowel motivation especially given narcotic usage for foot pain. Continue to follow blood sugars and adjust insulin as needed. <Kimberly Padron - Last Filed: 04/29/17 16:13> Objective Vital signs: Temperature 97.0 F 04/29/17 13:45 Pulse Rate 82 04/29/17 14:45 Respiratory Rate 20 04/29/17 13:45 Blood Pressure 144/70 H 04/29/17 14:45 Pulse Oximetry 99 04/29/17 14:45 Height/Weight/BMI: Height 1.65 m Weight 69.4 kg Body Mass Index 25.4 Results - Labs CBC & Chem 7: 04/29/17 04:37 04/29/17 04:37 Microbiology Results: Microbiology 04/28/17 15:33 Peripheral/Iv Start Blood Culture - Preliminary No Growth After 1 Day 04/28/17 15:48 Peripheral/Iv Start Blood Culture - Preliminary No Growth After 1 Day 04/29/17 13:11 Foot, Right Gram Stain - Final 04/29/17 13:11 Foot, Right Surgical Culture - Preliminary Culture Initiated - Results Pending Assessment and Plan (1) Diabetic foot infection Current visit: Yes Status: Acute (2) Ulcer of right foot due to type 2 diabetes mellitus Problem details: Right Diabetic foot infection/osteomyelitis status post I&D on 10/07/16, cultures with Enterococcus faecalis sensitive to ampicillin and CN staph. s/p repeat debridement with right foot sesamoidectomy on 10/31/16. Bone cultures with Klebsiella oxytoca and CN staph with pathology showing osteomyelitis. Current visit: Yes Status: Chronic Assessment and Plan: I have independently evaluated and examined this patient. I reviewed the chart, the patient's history, and the SPORTS EQUIPMENT REPAIRER/PA's documented findings as above. We discussed and formulated the assessment and plan as above with additions as below: Rebecca was seen preoperatively. She reported no fever overnight and minimal pain in her right foot which was wrapped when I evaluated her. She reported some minor sniffles but no dyspnea. Patient was alert and in no distress. Respirations nonlabored, breath sounds clear Trace-+1 edema at the right ankle and proximal foot. MRI reviewed by myself/report reviewed-edema in the distal first metatarsal shaft and head, osseous erosion suggestive of gout (clinically course is not indicative of gout). For surgical debridement and biopsy today. Dr. Huang to evaluate. Discussed with Dr. Luna-outpatient culture positive for staph aureus, sensitivities pending. CRP 56.3-significantly elevated from January when CRP was < 5. Hospital Course Summary Disclaimer: The visit summary below is not to be considered part of the above Progress Note.
[2017-04-29] MEDS ORDERED: SENNOSIDES 8.6 MG TABLET PO SCH (21:00)
[2017-04-29] MEDS: ACETAMINOPHEN 325 MG TABLET PO PRN (21:15)
[2017-04-29] MEDS: INSULIN GLARGINE 100unit/ml INJECTION SQ SCH (21:24)
[2017-04-30] MEDS: PIPERACILLIN/TAZOBACTAM 3.375 GM in NS 100 ML IV SCH ×2 (00:15→05:42)
--- NOTE | 2017-04-30 09:30 | Orthopedic Progress Note ---
Date: Subjective/Severity of Illness: Rebecca has no complaints, her pain is controlled. Wound vac is working well. Path report shows "resolving osteomyelitis" with clinical correlation recommended. Gram stain shows no organism. Orthopedic Objective PO Vital signs: Temperature 96.1 F L 04/30/17 08:41 Pulse Rate 87 04/30/17 08:41 Respiratory Rate 18 04/30/17 08:41 Blood Pressure 156/86 H 04/30/17 08:41 Pulse Oximetry 98 04/30/17 08:41 Height and Weight: Height 5 ft 5 in Weight 154 lb 5.177 oz Body Mass Index 25.4 - Constitutional General Appearance: Present: alert, orientated x3, no acute distress, well developed, well nourished - Respiratory Exam Present: non-labored - Cardiovascular Exam Present: pedal pulses intact - Extremities Exam Extremities: Present: pulses intact Comments: Wound vac working - Surgical Site Incision: dressing intact Drains Present: negative pressure therapy - Integumentary Exam Present: pink, warm, dry - Lymphatic Lymphatic: Absent: adenopathy - Neurological Exam Present: intact to light touch, no deficits - Psychiatric Exam Present: alert, normal affect - Wound Management Left Foot Wound Type: Diabetic Foot Ulcer (Right first met head plantar) Wound Length: 1.5 Wound Width: 0.8 Wound Depth: 0.6 (Tendon exposed) Bed Appearance: Beefy Red, Bone Tendon Surrounding Tissue Appearance: [place] Drainage Description: Sanguineous Drainage Amount: Large Drainage Odor: No Odor Dressing Status: Changed Dressing Change Date: 05/01/17 Dressing Change Time: 14:45 Dressing Change Patient Tolerance: Tolerated Well - Labs Result Diagrams: 05/01/17 04:05 05/02/17 04:12 Abnormal lab results 04/30/17 04/30/17 Range/Units 04:14 04:14 RBC 3.16 L (4.00-5.20) M/MM3 Hgb 10.0 L (12-16) GM/DL Hct 30.2 L (36-46) % MPV 9.2 L (9.4-12.4) UM3 [place] % (Auto) 10.1 H (0-9.0) % Potassium 3.4 L (3.6-5) MEQ/L Chloride 108 H (98-107) MEQ/L Glucose 185 H (65-110) MG/DL Calculated Osmolality 282 H (261-280) MOSM/KG H & H 04/28/17 04/29/17 04/30/17 Range/Units 15:33 04:37 04:14 Hgb 11.3 L 10.5 L 10.0 L (12-16) GM/DL Hct 33.7 L 31.4 L 30.2 L (36-46) % Orthopedic Assessment and Plan (1) Foot ulcer, right Status: Chronic Problem Details: (2) Diabetes mellitus type 2, uncontrolled, without complications Status: Chronic Problem Details: Control is improving but not yet to target. (3) Ulcer of right foot due to type 2 diabetes mellitus Status: Chronic Problem Details: Right Diabetic foot infection/osteomyelitis status post I&D on 10/07/16, cultures with Enterococcus faecalis sensitive to ampicillin and CN staph. s/p repeat debridement with right foot sesamoidectomy on 10/31/16. Bone cultures with Klebsiella oxytoca and CN staph with pathology showing osteomyelitis. s/p debridement ulceration with bone biopsy first metatarsal head 04/29/17-Bone culture positive Corynebacterium species; outpatient wound culture MSSA. Assessment and Plan: Continue wound vac, antibiotics and medical management. - Anticoagulation Therapy Anticoagulation: other Hospital Course Summary Disclaimer: The visit summary below is not to be considered part of the above Progress Note. Hospital Course: Right foot diabetic foot ulcer Failed outpatient treatment Diabetes Peripheral neuropathy Hypertension Vitamin D Deficiency Depression 04/28/17-hospital admission Admit patient as a inpatient status under the care of Dr Padron for Right foot ulcer, Failed outpatient treatment The following laboratory studies are ordered on admission. CBC, CMP, blood cultures 2, venous lactate, pro calcitonin, urinalysis. Patient has been taking Cipro 500mg BID for (several weeks). Was last seen at wound care center on 04/16 for debridement. Initiate IV Zosyn and vancomycin for antimicrobial coverage. Consultation placed to Dr. Huang for further infectious disease recommendations. Will evaluate for Sepsis. qSOFA score- 0/3 on admission Consultation placed to Dr Chowdhury for further evaluation. Obtain Xray of right foot on admission. Will monitor Accu-checks, Hgb A1C ordered on admission. Continue with home diabetes education regimen including Toujeo 15 units at HS and Novolog 6 units with meals. Carb Consistent diet. Lovenox SQ daily for DVT prophylaxis Follow CBC and BMP tomorrow morning Case discussed with attending, Dr Padron At time of discharge medical care will return to primary care provider, Dr. Salcido 04/29/17 Dr. Chowdhury performed surgical debridement and bone biopsy today. Results are pending. Continue Zosyn and vancomycin as currently ordered. Dr. Huang is involved in patient's care at this time. Order for senna daily at bedtime and MiraLAX daily for bowel motivation especially given narcotic usage for foot pain. Continue to follow blood sugars and adjust insulin as needed.
[2017-04-30] MEDS ORDERED: INSULIN GLARGINE 100unit/ml INJECTION SQ SCH (09:32)
[2017-04-30] MEDS: AMLODIPINE 5 MG TABLET PO SCH ×2 (10:10→20:43)
[2017-04-30] MEDS: Venlaflaxine XR 75 MG CAPSULE (24hr) PO SCH (10:10)
[2017-04-30] MEDS: INSULIN ASPART 100unit/ml INJECTION SQ SCH ×3 (10:11→18:29)
[2017-04-30] MEDS: ENOXAPARIN 30 MG/0.3 ML INJECTION SQ SCH (10:12)
[2017-04-30] MEDS: POLYETHYL GLYCOL 3350 17gm PACKET PO SCH (10:12)
[2017-04-30] MEDS ORDERED: Oxycodone/Acetaminophen 5/325 1 TAB PO PRN (11:06)
[2017-04-30] MEDS ORDERED: SENNOSIDES 8.6 MG TABLET PO PRN (11:06)
[2017-04-30] MEDS: INSULIN ASPART 100unit/ml INJECTION SQ PRN ×2 (12:37→20:43)
[2017-04-30] MEDS: LR 1,000 ML IV SCH ×2 (12:39)
--- NOTE | 2017-04-30 13:54 | Operative Note ---
DATE OF PROCEDURE 04/29/2017 PREOPERATIVE DIAGNOSIS Right foot diabetic foot ulcer with possible osteomyelitis. POSTOPERATIVE DIAGNOSIS Right foot diabetic foot ulcer with possible osteomyelitis. PROCEDURE Surgical debridement of right diabetic foot ulceration with bone biopsy of first metatarsal head. SURGEON Sagar Chowdhury MD ANESTHESIA TIVA COMPLICATIONS None. EBL AND FLUIDS Please see Anesthetic Records. DESCRIPTION OF PROCEDURE Mrs. Hess and her right foot were identified and marked in the preoperative holding area. She was brought back to the operating suite and placed supine on the operating table. She was placed under general anesthesia. The right lower extremity was prepped and draped in my normal sterile fashion. Time-out was performed. I measured her plantar ulceration over the first metatarsal head plantarly, measuring 1.2 x 1 x 0.4 cm. The wound base was nearly 100% necrotic. I performed sharp debridement, starting with a curette, removing all necrotic tissue. There was some tunneling laterally. There was also tunneling toward the MTP joint proximally. Her FHL tendon was completely exposed and appeared to be in condition without any signs of tears. After a thorough debridement and removing all necrotic tissue, I thoroughly irrigated the wound with normal saline using 3 liters total and cysto tubing. I then took a biopsy of the first metatarsal head using a Federico needle and this was sent to pathology for culture and pathology. There was minimal bleeding which was controlled with pressure. I then placed an Adaptic over the FHL tendon and placed a wound VAC into the wound and hooked it up to 125 mmHg continuous suction and achieved a good seal with minimal leak. The drapes were then removed. She was allowed to awaken from general anesthesia and taken to the Recovery Room under the care of Anesthesia. She tolerated the procedure well. There were no complications. HUSSAIN
[2017-04-30] MEDS: ACETAMINOPHEN 325 MG TABLET PO PRN (14:07)
--- NOTE | 2017-04-30 14:26 | Wound Care Progress Note ---
Wound Center Progress Note: In to see pt who is familiar to the wound clinic. Dr Chowdhury managing pt care at this time. Wound vac running appropriately, pt was very tearful and allowed time to verbalize. Assured pt that we be followed in wound care after dismissal.
--- NOTE | 2017-04-30 16:11 | Progress Note ---
<Sophie Martins V - Last Filed: 04/30/17 16:08> Subjective: Rebecca is seen this afternoon in follow-up. She is resting continue to take a nap. She states she did not sleep well overnight. She does report having some intermittent foot pain that has been managed by Tylenol. Denies nausea and reports previously had some diarrhea like stool that has resolved. Denies feeling short of breath. Reports appetite is minimal. Objective Vital signs: Temperature 96.9 F 04/30/17 11:28 Pulse Rate 83 04/30/17 11:28 Respiratory Rate 16 04/30/17 11:28 Blood Pressure 136/70 04/30/17 11:28 Pulse Oximetry 98 04/30/17 11:28 Height/Weight/BMI: Height 1.65 m Weight 70 kg Body Mass Index 25.4 - Constitutional Present: no acute distress, well nourished, well developed - Routine HEENT Exam Eye: Present: EOMI ENT: Present: mucous membranes moist, dentition normal - Routine Respiratory Exam Present: CTA bilaterally. Absent: wheezes - Routine Cardiovascular Exam Present: RRR, S1, S2. Absent: murmur - Routine Abdominal Exam Present: soft, normoactive bowel sounds, non distended. Absent: tenderness - Routine Extremities Exam Present: pulses intact Comments: Right foot- wound VAC intact - Routine Skin Exam Present: intact, dry, warm - Routine Neurological Exam Present: alert, oriented X3, CN II-XII intact - Routine Lymphatic Exam Lymphatic: Absent: adenopathy - Routine Psychiatric Exam Present: normal affect, cooperative Results - Labs CBC & Chem 7: 04/30/17 04:14 04/30/17 04:14 Microbiology Results: Microbiology 04/28/17 15:33 Peripheral/Iv Start Blood Culture - Preliminary No Growth After 2 Days 04/28/17 15:48 Peripheral/Iv Start Blood Culture - Preliminary No Growth After 2 Days 04/29/17 13:11 Foot, Right Gram Stain - Final 04/29/17 13:11 Foot, Right Surgical Culture - Preliminary Culture Initiated - Results Pending Assessment and Plan (1) Ulcer of right foot due to type 2 diabetes mellitus Problem details: Right Diabetic foot infection/osteomyelitis status post I&D on 10/07/16, cultures with Enterococcus faecalis sensitive to ampicillin and CN staph. s/p repeat debridement with right foot sesamoidectomy on 10/31/16. Bone cultures with Klebsiella oxytoca and CN staph with pathology showing osteomyelitis. Current visit: Yes Status: Chronic (2) Diabetic foot infection Current visit: Yes Status: Acute Assessment and Plan: Impression Right foot diabetic foot ulcer/osteomyelitis Failed outpatient treatment Diabetes Peripheral neuropathy Hypertension Vitamin D Deficiency Depression 04/30-Plan Continued management by Dr Chowdhury- Wound . Pathology of 1st metatarsal head, preliminary readout indicates resolving osteomyelitis. Awaiting final results and recommendations by Dr. Chowdhury and Dr. Huang. Continue on cefazolin for antimicrobial coverage. Continue to manage blood sugars- overall appears to be well controlled on current regimen, NovoLog 6 units with meals along with sliding scale as well as Lantus basal insulin 25 units at at bedtime. Blood pressure at time has been borderline elevated. Will start her Norvasc 5 milligrams twice a day Recommend holding off on Senna and MiraLAX. Given loose stools. Lovenox subcutaneous daily for DVT prophylaxis Morning labs reviewed, potassium slightly low at 3.4. Will give a one time dose of 40 po supplementation Will discontinue IV fluids as she is taking PO in adequately. Hospital Course Summary Disclaimer: The visit summary below is not to be considered part of the above Progress Note. Hospital Course: Right foot diabetic foot ulcer Failed outpatient treatment Diabetes Peripheral neuropathy Hypertension Vitamin D Deficiency Depression 04/28/17-hospital admission Admit patient as a inpatient status under the care of Dr Padron for Right foot ulcer, Failed outpatient treatment The following laboratory studies are ordered on admission. CBC, CMP, blood cultures 2, venous lactate, pro calcitonin, urinalysis. Patient has been taking Cipro 500mg BID for (several weeks). Was last seen at wound care center on 04/16 for debridement. Initiate IV Zosyn and vancomycin for antimicrobial coverage. Consultation placed to Dr. Huang for further infectious disease recommendations. Will evaluate for Sepsis. qSOFA score- 0/3 on admission Consultation placed to Dr Chowdhury for further evaluation. Obtain Xray of right foot on admission. Will monitor Accu-checks, Hgb A1C ordered on admission. Continue with home diabetes education regimen including Toujeo 15 units at HS and Novolog 6 units with meals. Carb Consistent diet. Lovenox SQ daily for DVT prophylaxis Follow CBC and BMP tomorrow morning Case discussed with attending, Dr Padron At time of discharge medical care will return to primary care provider, Dr. Salcido 04/29/17 Dr. Chowdhury performed surgical debridement and bone biopsy today. Results are pending. Continue Zosyn and vancomycin as currently ordered. Dr. Huang is involved in patient's care at this time. Order for senna daily at bedtime and MiraLAX daily for bowel motivation especially given narcotic usage for foot pain. Continue to follow blood sugars and adjust insulin as needed. 04/30/17 Plan Continued management by Dr Chowdhury- Wound . Pathology of 1st metatarsal head, preliminary readout indicates resolving osteomyelitis. Awaiting final results and recommendations by Dr. Chowdhury and Dr. Huang. Continue on cefazolin for antimicrobial coverage. Continue to manage blood sugars- overall appears to be well controlled on current regimen, NovoLog 6 units with meals along with sliding scale as well as Lantus basal insulin 25 units at at bedtime. Blood pressure at time has been borderline elevated. Will start her Norvasc 5 milligrams twice a day Recommend holding off on Senna and MiraLAX. Given loose stools. Lovenox subcutaneous daily for DVT prophylaxis Morning labs reviewed, potassium slightly low at 3.4. Will give a one time dose of 40 po supplementation Will discontinue IV fluids as she is taking PO in adequately. <Kimberly Padron - Last Filed: 04/30/17 17:01> Objective Vital signs: Temperature 96.9 F 04/30/17 11:28 Pulse Rate 83 04/30/17 11:28 Respiratory Rate 16 04/30/17 11:28 Blood Pressure 136/70 04/30/17 11:28 Pulse Oximetry 98 04/30/17 11:28 Height/Weight/BMI: Height 1.65 m Weight 70 kg Body Mass Index 25.4 Results - Labs CBC & Chem 7: 04/30/17 04:14 04/30/17 04:14 Microbiology Results: Microbiology 04/28/17 15:33 Peripheral/Iv Start Blood Culture - Preliminary No Growth After 2 Days 04/28/17 15:48 Peripheral/Iv Start Blood Culture - Preliminary No Growth After 2 Days 04/29/17 13:11 Foot, Right Gram Stain - Final 04/29/17 13:11 Foot, Right Surgical Culture - Preliminary Culture Initiated - Results Pending Assessment and Plan (1) Diabetic foot infection Current visit: Yes Status: Acute (2) Ulcer of right foot due to type 2 diabetes mellitus Problem details: Right Diabetic foot infection/osteomyelitis status post I&D on 10/07/16, cultures with Enterococcus faecalis sensitive to ampicillin and CN staph. s/p repeat debridement with right foot sesamoidectomy on 10/31/16. Bone cultures with Klebsiella oxytoca and CN staph with pathology showing osteomyelitis. s/p debridement ulceration with bone biopsy first metatarsal head 04/29/17. Current visit: Yes Status: Chronic DVT Prophylaxis: Lovenox Resuscitation Status: Full Code Assessment and Plan: I have independently evaluated and examined this patient. I reviewed the chart, the patient's history, and the LOLLYPOP MACHINE OPERATOR/PA's documented findings as above. We discussed and formulated the assessment and plan as above with additions as below: Rebecca that she didn't sleep well overnight complaining of her down being stiff and itchy. She is now experiencing pain in her foot incompletely relieved with Tylenol. Patient is alert, respirations are nonlabored with good airflow and clear breath sounds Cardiac rhythm regular, right foot is dressed and wound VAC present Outpatient wound culture positive MSSA Outpatient culture discussed with Dr. Huang-converted from Zosyn/vancomycin to IV Ancef. Anticipate PICC line placement-tentatively scheduled. Patient aware amputation a possibility. Discussed with case management and nursing. Fasting blood sugar elevated, nursing clarifying with Dr. Wu's office what her long-acting insulin is. Lantus increased from 15 to 25 units tonight. Hospital Course Summary Disclaimer: The visit summary below is not to be considered part of the above Progress Note.
[2017-04-30] MEDS ORDERED: ONDANSETRON 4 MG/2 ML INJECTION IVP PRN (20:34)
[2017-04-30] MEDS: CEFAZOLIN 2 G in NS 100 ML IV SCH (20:41)
[2017-04-30] MEDS: SALINE FLUSH 10ml SYRINGE IV PRN (20:44)
[2017-04-30] MEDS: DiphenhydrAMINE 25 MG CAPSULE PO PRN (22:49)
[2017-05-01] MEDS: CEFAZOLIN 2 G in NS 100 ML IV SCH ×3 (04:23→21:11)
[2017-05-01] MEDS: SALINE FLUSH 10ml SYRINGE IV PRN (04:24)
[2017-05-01] MEDS: NS FLUSH BAG 500ml IV PRN (04:24)
--- NOTE | 2017-05-01 08:15 | Orthopedic Progress Note ---
Date: Subjective/Severity of Illness: No new complaints today regarding her right foot. Wound VAC is working well. Orthopedic Objective Vital signs: Temperature 96.9 F 05/01/17 04:00 Pulse Rate 84 05/01/17 04:00 Respiratory Rate 16 05/01/17 04:00 Blood Pressure 151/82 H 05/01/17 04:00 Pulse Oximetry 97 05/01/17 04:00 Height and Weight: Height 5 ft 5 in Weight 70 kg Body Mass Index 25.4 - Constitutional General Appearance: Present: alert, orientated x3, no acute distress, well developed, well nourished - Respiratory Exam Present: non-labored - Cardiovascular Exam Present: pedal pulses intact - Extremities Exam Present: pulses intact - Lymphatic Lymphatic: Present: adenopathy - Wound Management Right Foot Comments: Wound VAC in place with good suction. With a wound VAC removed there is macerated skin surrounding the ulceration. FHL tendon is exposed within the wound. No pustules drainage from the wound. No foul odor. She has good active flexion-extension of the great toe. - Labs Result Diagrams: 05/01/17 04:05 05/01/17 04:05 Abnormal lab results 05/01/17 05/01/17 Range/Units 04:05 04:05 RBC 3.28 L (4.00-5.20) M/MM3 Hgb 10.5 L (12-16) GM/DL Hct 31.2 L (36-46) % MPV 9.1 L (9.4-12.4) UM3 [place] % (Auto) 9.2 H (0-9.0) % Carbon Dioxide 31 H (22-30) MEQ/L Creatinine 0.6 L (0.7-1.2) MG/DL H & H 04/28/17 04/29/17 04/30/17 Range/Units 15:33 04:37 04:14 Hgb 11.3 L 10.5 L 10.0 L (12-16) GM/DL Hct 33.7 L 31.4 L 30.2 L (36-46) % 05/01/17 Range/Units 04:05 Hgb 10.5 L (12-16) GM/DL Hct 31.2 L (36-46) % Orthopedic Assessment and Plan (1) Ulcer of right foot due to type 2 diabetes mellitus Status: Chronic Problem Details: Right Diabetic foot infection/osteomyelitis status post I&D on 10/07/16, cultures with Enterococcus faecalis sensitive to ampicillin and CN staph. s/p repeat debridement with right foot sesamoidectomy on 10/31/16. Bone cultures with Klebsiella oxytoca and CN staph with pathology showing osteomyelitis. s/p debridement ulceration with bone biopsy first metatarsal head 04/29/17. Assessment and Plan: The wound was very wet this morning. I will discuss with Félix Christie other options to help control the drainage possibly just increasing the pressure on the wound VAC. In my opinion it will be worse continuing IV antibiotics and wound VAC treatment in order to attempt to save her from an amputation which would likely be a partial first ray amputation. She agreed with this plan. She can be weightbearing on her heel in a postop shoe. If she is discharged over the weekend I would like to follow her in the wound clinic. (2) Diabetes mellitus type 2, uncontrolled, without complications Status: Chronic Problem Details: Control is improving but not yet to target. (3) Foot ulcer, right Status: Chronic Problem Details: - Anticoagulation Therapy Anticoagulation: other Hospital Course Summary Disclaimer: The visit summary below is not to be considered part of the above Progress Note. Hospital Course: Right foot diabetic foot ulcer Failed outpatient treatment Diabetes Peripheral neuropathy Hypertension Vitamin D Deficiency Depression 04/28/17-hospital admission Admit patient as a inpatient status under the care of Dr Padron for Right foot ulcer, Failed outpatient treatment The following laboratory studies are ordered on admission. CBC, CMP, blood cultures 2, venous lactate, pro calcitonin, urinalysis. Patient has been taking Cipro 500mg BID for (several weeks). Was last seen at wound care center on 04/16 for debridement. Initiate IV Zosyn and vancomycin for antimicrobial coverage. Consultation placed to Dr. Huang for further infectious disease recommendations. Will evaluate for Sepsis. qSOFA score- 0/3 on admission Consultation placed to Dr Chowdhury for further evaluation. Obtain Xray of right foot on admission. Will monitor Accu-checks, Hgb A1C ordered on admission. Continue with home diabetes education regimen including Toujeo 15 units at HS and Novolog 6 units with meals. Carb Consistent diet. Lovenox SQ daily for DVT prophylaxis Follow CBC and BMP tomorrow morning Case discussed with attending, Dr Padron At time of discharge medical care will return to primary care provider, Dr. Salcido 04/29/17 Dr. Chowdhury performed surgical debridement and bone biopsy today. Results are pending. Continue Zosyn and vancomycin as currently ordered. Dr. Hunag is involved in patient's care at this time. Order for senna daily at bedtime and MiraLAX daily for bowel motivation especially given narcotic usage for foot pain. Continue to follow blood sugars and adjust insulin as needed. 04/30/17 Plan Continued management by Dr Chowdhury- Wound . Pathology of 1st metatarsal head, preliminary readout indicates resolving osteomyelitis. Awaiting final results and recommendations by Dr. Chowdhury and Dr. Huang. Continue on cefazolin for antimicrobial coverage. Continue to manage blood sugars- overall appears to be well controlled on current regimen, NovoLog 6 units with meals along with sliding scale as well as Lantus basal insulin 25 units at at bedtime. Blood pressure at time has been borderline elevated. Will start her Norvasc 5 milligrams twice a day Recommend holding off on Senna and MiraLAX. Given loose stools. Lovenox subcutaneous daily for DVT prophylaxis Morning labs reviewed, potassium slightly low at 3.4. Will give a one time dose of 40 po supplementation Will discontinue IV fluids as she is taking PO in adequately.
[2017-05-01] MEDS: INSULIN ASPART 100unit/ml INJECTION SQ SCH ×2 (08:50→12:29)
[2017-05-01] MEDS: ENOXAPARIN 30 MG/0.3 ML INJECTION SQ SCH (09:18)
[2017-05-01] MEDS: POLYETHYL GLYCOL 3350 17gm PACKET PO SCH ×2 (09:18→09:20)
[2017-05-01] MEDS: Venlaflaxine XR 75 MG CAPSULE (24hr) PO SCH (09:19)
[2017-05-01] MEDS: AMLODIPINE 5 MG TABLET PO SCH ×2 (09:19→21:11)
--- NOTE | 2017-05-01 10:19 | Progress Note ---
Subjective Date: 05/01/17 Subjective: She denies any fevers, chills, N/V or diarrhea. When I ask her how she is, she says, "well, you tell me. " She reports that Dr. Chowdhury removed her wound VAC this morning and though her wound was wet. Exam Vital Signs: Temperature 96.2 F L 05/01/17 08:00 Pulse Rate 86 05/01/17 08:00 Respiratory Rate 18 05/01/17 08:00 Blood Pressure 168/95 H 05/01/17 08:00 Pulse Oximetry 97 05/01/17 08:00 Height/Weight/BMI: Height 1.65 m Weight 67.3 kg Body Mass Index 25.4 - Constitutional Present: no acute distress, well nourished, well developed - Routine HEENT Exam Head: Present: normocephalic, atraumatic Eye: Present: EOMI, PERRL ENT: Present: mucous membranes moist - Routine Neck Exam Present: supple - Routine Respiratory Exam Present: CTA bilaterally - Routine Cardiovascular Exam Present: RRR - Routine Abdominal Exam Present: soft, normoactive bowel sounds, non distended, non tender - Routine Extremities Exam Absent: cyanosis, clubbing, edema - Routine Skin Exam Present: intact, wounds (plantar surface of R foot near 1st MT head). Absent: rash - Routine Neurological Exam Present: alert, oriented X3, CN II-XII intact - Routine Psychiatric Exam Present: normal affect Results - Labs CBC & Chem 7: 05/01/17 04:05 05/01/17 04:05 Microbiology Results: Microbiology 04/29/17 13:11 Foot, Right Gram Stain - Final 04/29/17 13:11 Foot, Right Surgical Culture - Preliminary Early growth 04/28/17 15:33 Peripheral/Iv Start Blood Culture - Preliminary No Growth After 2 Days 04/28/17 15:48 Peripheral/Iv Start Blood Culture - Preliminary No Growth After 2 Days Impression: Recurrent R diabetic foot infection and osteomyelitis. Superficial wound culture 04/28 with MSSA. S/p I&D 04/29/17, surgical culture with a gram positive organism, path report was suggestive of "resolving osteomyelitis." Right Diabetic foot infection/osteomyelitis status post irrigation and debridement on October 07, 2016, cultures with Enterococcus faecalis sensitive to ampicillin and coagulase- negative staph. Status post repeat debridement with right foot sesamoidectomy on October 31, 2016. Bone cultures with Klebsiella oxytoca and coagulase-negative staph with pathology showing osteomyelitis. Diabetes mellitus type 2, non-insulin dependent, poorly controlled with HgA1c greater than 15 during her October hospitalization. Hgb A1C was 7.1 the end of March. Hypertension. History of acute kidney injury secondary to ATN, improved. H/o Intermittent nausea and vomiting, chronic, question secondary to gastroparesis. Depression. Recommendation: I discussed with her that I'm fairly certain that she still has osteomyelitis. I recommend IV antibiotics for 6 weeks. I'm not sure she's completely on board with this, but maybe she needs some time to think about it. I'll order a PICC today. I discussed the PICC with her and she agrees. Continue Ancef for now. Await surgical culture. If it shows MSSA, then I would recommend continuing with Ancef 2gm IV q8 hours for 6 weeks.
[2017-05-01] MEDS: INSULIN ASPART 100unit/ml INJECTION SQ PRN (10:31)
[2017-05-01] MEDS ORDERED: SALINE FLUSH *Sterile* 10 ML SYRINGE ONE (11:00)
--- NOTE | 2017-05-01 11:32 | Fluoroscopy Report ---
Indication:ALF ANTIBIOTICS Procedure:FL guided PICC insertion PICC LINE INSERTION: After discussing the details of the procedure, including risks, the patient wished to proceed. Informed consent was obtained. A preprocedural timeout was performed to confirm the correct patient and procedure. Sterile technique, local Xylocaine anesthesia, and sonographic guidance was used to access the left basilic vein. A .018 guidewire was advanced into the vein. Then using fluoroscopic guidance, a single lumen 4 Fr PICC line was advanced with the tip placed within the SVC. Total catheter length is 42 cm, with 1 cm external to the skin. A fluoroscopic image was then taken and archived. I was able to aspirate blood and inject freely through the port. The procedure was completed without complication. Following this, the patient was taken back to her room on the surgical floor. Impression:Successful left-sided PICC line placement with tip residing near the cavoatrial junction. Fluoroscopy dose: 2.23 mGy (Cumulative air kerma) Andrea Hudson RPA/VIRGINIE performed this under my personal supervision. .
[2017-05-01] MEDS: ACETAMINOPHEN 325 MG TABLET PO PRN ×2 (12:10→21:11)
--- NOTE | 2017-05-01 12:10 | Progress Note ---
<Sophie Martins V - Last Filed: 05/01/17 12:03> Subjective: Rebecca is seen this morning up in the chair and in good spirits. Wound VAC was removed earlier this morning by Dr. Chowdhury. Patient denies having any current discomfort including fevers, chills, GI complaints. Appetite is good. Objective Vital signs: Temperature 96.5 F L 05/01/17 11:42 Pulse Rate 82 05/01/17 11:42 Respiratory Rate 16 05/01/17 11:42 Blood Pressure 153/80 H 05/01/17 11:42 Pulse Oximetry 100 05/01/17 11:42 Height/Weight/BMI: Height 1.65 m Weight 67.3 kg Body Mass Index 25.4 - Constitutional Present: no acute distress, well nourished, well developed - Routine HEENT Exam Eye: Present: EOMI ENT: Present: mucous membranes moist, dentition normal - Routine Respiratory Exam Present: CTA bilaterally. Absent: wheezes - Routine Cardiovascular Exam Present: RRR, S1, S2. Absent: murmur - Routine Abdominal Exam Present: soft, normoactive bowel sounds, non distended. Absent: tenderness - Routine Extremities Exam Comments: Right foot wound - Routine Skin Exam Present: intact, dry, warm, wounds (Right foot) - Routine Neurological Exam Present: alert, oriented X3, CN II-XII intact - Routine Lymphatic Exam Lymphatic: Absent: adenopathy - Routine Psychiatric Exam Present: normal affect, cooperative Results - Labs CBC & Chem 7: 05/01/17 04:05 05/01/17 04:05 Microbiology Results: Microbiology 04/29/17 13:11 Foot, Right Gram Stain - Final 04/29/17 13:11 Foot, Right Surgical Culture - Preliminary Corynebacterium species 04/28/17 15:33 Peripheral/Iv Start Blood Culture - Preliminary No Growth After 2 Days 04/28/17 15:48 Peripheral/Iv Start Blood Culture - Preliminary No Growth After 2 Days Assessment and Plan (1) Ulcer of right foot due to type 2 diabetes mellitus Problem details: Right Diabetic foot infection/osteomyelitis status post I&D on 10/07/16, cultures with Enterococcus faecalis sensitive to ampicillin and CN staph. s/p repeat debridement with right foot sesamoidectomy on 10/31/16. Bone cultures with Klebsiella oxytoca and CN staph with pathology showing osteomyelitis. s/p debridement ulceration with bone biopsy first metatarsal head 04/29/17. Current visit: Yes Status: Chronic (2) Diabetic foot infection Current visit: Yes Status: Acute Assessment and Plan: Impression Right foot diabetic foot ulcer- MSSA- outpatinet wound Failed outpatient treatment Diabetes Peripheral neuropathy Hypertension Vitamin D Deficiency Depression Plan Wound VAC was removed today by Dr. Chowdhury, awaiting further discussion with wound care team. Patient was seen by Dr. Huang, who recommends 6 weeks of Ancef 2gm IV every 8 hours for antibiotic therapy. PICC line placed today. Lantus increased to 25 units last night. Continue with mealtime insulin and sliding scale. Will need to discuss with case management regarding discharge plan Hospital Course Summary Disclaimer: The visit summary below is not to be considered part of the above Progress Note. Hospital Course: Right foot diabetic foot ulcer Failed outpatient treatment Diabetes Peripheral neuropathy Hypertension Vitamin D Deficiency Depression 04/28/17-hospital admission Admit patient as a inpatient status under the care of Dr Padron for Right foot ulcer, Failed outpatient treatment The following laboratory studies are ordered on admission. CBC, CMP, blood cultures 2, venous lactate, pro calcitonin, urinalysis. Patient has been taking Cipro 500mg BID for (several weeks). Was last seen at wound care center on 04/16 for debridement. Initiate IV Zosyn and vancomycin for antimicrobial coverage. Consultation placed to Dr. Huang for further infectious disease recommendations. Will evaluate for Sepsis. qSOFA score- 0/3 on admission Consultation placed to Dr Chowdhury for further evaluation. Obtain Xray of right foot on admission. Will monitor Accu-checks, Hgb A1C ordered on admission. Continue with home diabetes education regimen including Toujeo 15 units at HS and Novolog 6 units with meals. Carb Consistent diet. Lovenox SQ daily for DVT prophylaxis Follow CBC and BMP tomorrow morning Case discussed with attending, Dr Padron At time of discharge medical care will return to primary care provider, Dr. Salcido 04/29/17 Dr. Chowdhury performed surgical debridement and bone biopsy today. Results are pending. Continue Zosyn and vancomycin as currently ordered. Dr. Huang is involved in patient's care at this time. Order for senna daily at bedtime and MiraLAX daily for bowel motivation especially given narcotic usage for foot pain. Continue to follow blood sugars and adjust insulin as needed. 04/30/17 Plan Continued management by Dr Chowdhury- Wound . Pathology of 1st metatarsal head, preliminary readout indicates resolving osteomyelitis. Awaiting final results and recommendations by Dr. Chowdhury and Dr. Huang. Continue on cefazolin for antimicrobial coverage. Continue to manage blood sugars- overall appears to be well controlled on current regimen, NovoLog 6 units with meals along with sliding scale as well as Lantus basal insulin 25 units at at bedtime. Blood pressure at time has been borderline elevated. Will start her Norvasc 5 milligrams twice a day Recommend holding off on Senna and MiraLAX. Given loose stools. Lovenox subcutaneous daily for DVT prophylaxis Morning labs reviewed, potassium slightly low at 3.4. Will give a one time dose of 40 po supplementation Will discontinue IV fluids as she is taking PO in adequately. 05/01/17 Plan Wound VAC was removed today by Dr. Chowdhury, awaiting further discussion with wound care team. Patient was seen by Dr. Huang, who recommends 6 weeks of Ancef 2gm IV every 8 hours for antibiotic therapy. PICC line placed today. Lantus increased to 25 units last night. Continue with mealtime insulin and sliding scale. Will need to discuss with case management regarding discharge plan <Kimbelry Padron - Last Filed: 05/01/17 16:40> Objective Vital signs: Temperature 96.5 F L 05/01/17 15:53 Pulse Rate 97 05/01/17 15:53 Respiratory Rate 16 05/01/17 15:53 Blood Pressure 136/76 05/01/17 15:53 Pulse Oximetry 98 05/01/17 15:53 Height/Weight/BMI: Height 1.65 m Weight 67.3 kg Body Mass Index 25.4 Results - Labs CBC & Chem 7: 05/01/17 04:05 05/01/17 04:05 Microbiology Results: Microbiology 04/28/17 15:33 Peripheral/Iv Start Blood Culture - Preliminary No Growth After 3 Days 04/28/17 15:48 Peripheral/Iv Start Blood Culture - Preliminary No Growth After 3 Days 04/29/17 13:11 Foot, Right Gram Stain - Final 04/29/17 13:11 Foot, Right Surgical Culture - Preliminary Corynebacterium species Assessment and Plan (1) Diabetic foot infection Current visit: Yes Status: Acute (2) Ulcer of right foot due to type 2 diabetes mellitus Problem details: Right Diabetic foot infection/osteomyelitis status post I&D on 10/07/16, cultures with Enterococcus faecalis sensitive to ampicillin and CN staph. s/p repeat debridement with right foot sesamoidectomy on 10/31/16. Bone cultures with Klebsiella oxytoca and CN staph with pathology showing osteomyelitis. s/p debridement ulceration with bone biopsy first metatarsal head 04/29/17-Bone culture positive Corynebacterium species; outpatient wound culture MSSA. Current visit: Yes Status: Chronic DVT Prophylaxis: SCD's, Lovenox Resuscitation Status: Full Code Assessment and Plan: I have independently evaluated and examined this patient. I reviewed the chart, the patient's history, and the METER AND SERVICE LINE INSPECTOR/PA's documented findings as above. We discussed and formulated the assessment and plan as above with additions as below: Rebecca reports continued itchiness at night which improved after Benadryl. Blood pressures have been modestly elevated. Wound was described as wet this morning and wound VAC has been discontinued in favor of dressings. Fasting blood sugars have improved. Postprandials remained poorly controlled. Patient is alert, respirations nonlabored, cardiac rhythm regular Right foot with dressing in place. Wound care initiated foam dressing with double [place] Fera Blue. Surgical shoe available for ambulation. Decrease Lantus (uses Toujeo at home), increase NovoLog with lunch/supper slightly in response to consistent hyperglycemia after meals. Discharge planning initiated-have discussed bone culture with Dr. Huang and potential for discharge on Ancef. Due to difficulty with compliance on every 8 hour dosing she would prefer to switch to daptomycin for discharge. PICC line placed today; imaging reviewed demonstrating good placement of PICC in right atrium. Continue Ancef overnight with initial dose daptomycin 6MG/KG tomorrow. Discussed with nursing, case management, and Dr. Huang. - Time spent with patient Time with patient PN: 35 minutes (35-45min) Coordination of Care: >50% of visit spent providing counseling/coordination of care Hospital Course Summary Disclaimer: The visit summary below is not to be considered part of the above Progress Note.
--- NOTE | 2017-05-01 14:45 | Wound Care Progress Note ---
Wound Management - Patient Status Premedicated Prior to Dressing Change: No - Wound Left Foot Wound Type: Diabetic Foot Ulcer (Right first met head plantar) Wound Present on Admission?: Yes Length: 1.5 Width: 0.8 Depth: 0.6 (Tendon exposed) Wound Bed Appearance: Beefy Red, Bone Tendon Raquel Wound Appearance: [place] Tunneling: No Undermining: No Drainage Description: Sanguineous Drainage Amount: Large Drainage Odor: No Odor Dressing Status: Changed Primary Dressing: Foam Dressing (Double Hydra Fera Blue Classic) Secondary Dressing: Absorbant Pad (Xtrasorb) Dressing Change Date: 05/01/17 Dressing Change Time: 14:45 Dressing Change Patient Tolerance: Tolerated Well Microbiology: Microbiology 04/29/17 13:11 Foot, Right Gram Stain - Final 04/29/17 13:11 Foot, Right Surgical Culture - Preliminary Corynebacterium species 04/28/17 15:33 Peripheral/Iv Start Blood Culture - Preliminary No Growth After 2 Days 04/28/17 15:48 Peripheral/Iv Start Blood Culture - Preliminary No Growth After 2 Days
[2017-05-01] MEDS ORDERED: INSULIN GLARGINE 100unit/ml INJECTION SQ SCH (16:40)
[2017-05-01] MEDS ORDERED: INSULIN ASPART 100unit/ml INJECTION SQ SCH (17:15)
[2017-05-01] MEDS: DiphenhydrAMINE 25 MG CAPSULE PO PRN (21:11)
[2017-05-02] MEDS: CEFAZOLIN 2 G in NS 100 ML IV SCH (04:14)
[2017-05-02] MEDS ORDERED: INSULIN ASPART 100unit/ml INJECTION SQ SCH ×2 (07:30→11:45)
[2017-05-02] MEDS: POLYETHYL GLYCOL 3350 17gm PACKET PO SCH ×2 (08:56→08:59)
[2017-05-02] MEDS: ENOXAPARIN 30 MG/0.3 ML INJECTION SQ SCH (08:56)
[2017-05-02] MEDS: ACETAMINOPHEN 325 MG TABLET PO PRN (08:57)
[2017-05-02] MEDS: AMLODIPINE 5 MG TABLET PO SCH (08:57)
[2017-05-02] MEDS: Venlaflaxine XR 75 MG CAPSULE (24hr) PO SCH (08:57)
[2017-05-02] MEDS: DiphenhydrAMINE 25 MG CAPSULE PO PRN (08:57)
[2017-05-02] MEDS ORDERED: DAPTOMYCIN IVP SCH ×2 (10:00→12:00)
[2017-05-02] MEDS ORDERED: NS IVP SCH ×2 (10:00→12:00)
--- NOTE | 2017-05-02 11:37 | Discharge Instructions ---
Discharge Plan - Med Rec/Dispo Referrals/Follow Up: Sharee Huang MD [Physician] - ([facility] Sagar Chowdhury MD [Physician] - (Next week on Thursday as previously discussed) Tj Salcido MD [Physician] - (As previously scheduled on 05/12) Prescriptions: New DAPTOmycin [Daptomycin] 420 mg IV DAILY #41 vial Continue Amlodipine Besylate 5 mg PO BID #60 tab Venlafaxine HCl [Venlafaxine HCl ER] 75 mg PO DAILY #0 Map[place] Extra Strength 500 mg tablet 500 mg PO Q6H PRN PRN Reason: Pain ergocalciferol (vitamin D2) 50,000 unit capsule 50,000 unit PO 2XW #26 cap Changed Insulin Lispro [HumaLOG] 7 unit SQ AC15 #30 Insulin Glargine,Hum.rec.anlog [Toujeo Solostar] 20 unit SQ HS #0 Discontinued Cipro (ciprofloxacin) 500 mg tablet 500 mg PO BID tab Discharge Instructions/Outpatient Orders: Final Provider Discharge Instructions Location: Determined By Patient - Disposition 01 Discharged Home, Self-Care
[2017-05-02 11:55] VITALS: BP 138/77; PULSE 91; RESP 18; TEMP 97.9; O2SAT 94
--- NOTE | 2017-05-02 15:28 | Discharge Summary ---
Discharge Information Date of admission: 04/28/17 15:14 Anticipated date of discharge: 05/02/17 Attending Physician: Kimberly Padron MD Primary care physician: Tj Salcido MD Consults: Sagar Chowdhury Reason For Exam: Right foot ulcer Sharee Huang Reason For Exam: ID and ABX recommendations - Discharge Diagnosis (1) Diabetic foot infection Status: Acute Discharge Diagnosis: Right Diabetic foot infection/osteomyelitis status post I&D on 10/07/16, cultures with Enterococcus faecalis sensitive to ampicillin and CN staph. s/p repeat debridement with right foot sesamoidectomy on 10/31/16. Bone cultures with Klebsiella oxytoca and CN staph with pathology showing osteomyelitis. s/p debridement ulceration with bone biopsy first metatarsal head 04/29/17. (2) Ulcer of right foot due to type 2 diabetes mellitus Status: Chronic - Procedures Procedures: Bedside debridement of diabetic foot wound on 04/28/17 Surgical debridement of right diabetic foot ulceration with bone biopsy of first metatarsal head on 04/29/17 PICC line placement 05/01/17 - Laboratory Labs: White count on admission 5.9, hemoglobin 11.3, platelet count 233,000, electrolytes unremarkable, creatinine 0.7, glucose 295. HbA1c 8.5 on 04/28/17 CRP was 56.3 on 04/29 and improved to 12.2 on 05/02 CK < 20 on 05/02/70 05/01/17 04:05 05/02/17 04:12 - Microbiology Microbiology Outpatient culture wound plantar surface right foot-MSSA 04/29/17 13:11 Foot, Right Gram Stain - Final 04/29/17 13:11 Foot, Right Surgical Culture - Final Corynebacterium species 04/28/17 15:33 Peripheral/Iv Start Blood Culture - Preliminary No Growth After 3 Days 04/28/17 15:48 Peripheral/Iv Start Blood Culture - Preliminary No Growth After 3 Days - Radiology Radiology: 3 views right foot on 04/28/17: New erosions in the first metatarsal head with an appearance most suggestive of gout. Given the nearby skin ulceration osteomyelitis would also be within the differential. MRI of right foot on 04/28/17: Findings: New osseous erosions in the medial first metatarsal head. There is new edema in the distal first metatarsal shaft and metatarsal head. There is also edema in the medial sesamoid bone of the first metatarsal is noted on the prior study overlying skin ulceration. Trace edema in the tip of the great toe distal phalanx is unchanged. Diffuse edema within the intrinsic musculature of the foot is unchanged. The remaining bone marrow signal intensity is grossly normal and stable from the prior study. The extensor and flexor tendons are grossly intact. There is no rim-enhancing abscess or focal fluid collection appreciated. Impression: New juxta articular osseous erosions in the first metatarsal head. The radiographic appearance is fairly distinctive for gout. This could represent acute gout superimposed upon a pre-existing baseline level of osteomyelitis as evidenced by the prior exams. Both processes could be present in the first metatarsal head. Bone biopsy and/or joint aspiration may be helpful to further evaluate these findings. - Pathology Bone biopsy 04/29/17 demonstrated fibrosis and focal bony resorption with minimal chronic inflammation and no significant acute inflammation. Biopsy was the first metatarsal head. History of Present Illness HPI: Rebecca is a 56 year old female with known hisotry of Right foot ulcer that has been chronic. Is hospitalized last spring in October for diabetic foot ulcer on the right 1st metatarsal. She ended up being on IV antibiotics, daptomycin for 6 weeks. She was followed in the wound care center by Dr. Chowdhury and by Dr. Huang. She has continued to go to routine wound care and was last seen on by Dr. Barbosa. At that time debridement was completed of the right 1st metatarsal tissue. Patient recently returned back to work it which time she is standing on her feet for 18 hours a day. She reports that over the past 5 days, swelling and erythema of the right foot has worsened and redness is not spreading up the leg. She presented to see primary care provider, Dr. Salcido today who recommended direct admission to the hospital for further acute evaluation and treatment. On arrival to [facility], room 112. Patient is seen and examined. She does admit to working 60-70 hour weeks for the last 2 weeks on her feet and has not been allowing any time for rest as instructed. She reports that she has been taking Cipro 500 milligrams tabs twice a day for several weeks, as this was leftover from previous infection. She denies having any fevers or chills. No nausea, vomiting or diarrhea. Did discuss advanced directives and she does wish to be a full code Hospital Course This is a general summary of the patient's hospital course. For more details refer to the complete medical record. Hospital course: Right foot diabetic foot ulcer/diabetic foot wound Failed outpatient treatment Diabetes mellitus-A1c 8.5 Peripheral neuropathy, diabetic Hypertension Normocytic anemia Vitamin D Deficiency Depression Hospital course Rebecca was hospitalized with diabetic foot wound and acute infection. Wound was debrided at bedside by Dr. Chowdhury on the date of admission with subsequent MRI demonstrating changes again questioning osteomyelitis. She subsequently went to the operating room for bone biopsy and additional debridement on 04/29. The patient was empirically treated with vancomycin and Zosyn until outpatient culture results became known (MSSA) at which time she was switched to Cefazolin. Dr. Huang saw the patient in consultation and remained concerned that the patient had underlying osteomyelitis based on prior course. She recommended 6 week course of antibiotics. Bone biopsy grew out scant corynebacterium. PICC line was placed 05/01. Q8 hour dosing was felt unmanageable for the patient at home and she was subsequently switched to daptomycin 6 mg/kg with initial dose given on 05/02 prior to discharge. filling hand saw the patient on 05/01 recommending dressings for discharge after wound VAC failed to adequately manage the wound. Blood sugars were monitored throughout the hospital course. The patient had significant hyperglycemia intermittently prompting increase in basal insulin to 20 units and slight increase in short acting insulin to 7 units 3 times a day with meals. At discharge she was asked to monitor her blood sugars regularly and contact Dr. Wu if blood sugars are frequently in excess of 200. Dietary counseling was provided during the hospital course. Blood pressure was initially low but stabilized through the hospitalization and was borderline high for diabetic discharge. Patient remains on amlodipine at discharge but should be considered for addition of an ALMA inhibitor on follow- up if blood pressure is not improved. When it was felt stable for discharge on 05/02 after receiving initial dose of daptomycin. The patient describes some itching overnight but minimal pain in her right foot. She is ambulatory with a surgical shoe and is aware that she should elevate the right leg as much as possible. Patient is alert and respirations are nonlabored. Right toes are without erythema in the surgical wound is dressed. Patient is to report to the infusion center tomorrow at 10 AM for next dose daptomycin and daily thereafter. Follow-up with Dr. Chowdhury is scheduled Thursday of next week and with Dr. Huang in wound care clinic the following week. Patient is to follow-up with Dr. Salcido as previously scheduled for reassessment of blood pressure. Blood sugars to be monitored regularly and call to Dr. Wu as noted above. The only modifications made in the patient's home medications are as follows: Humalog increased to 7 units 3 times a day with meals Toujeo increased to 20 units daily at bedtime Ciprofloxacin discontinued Time spent with patient: greater than 35 minutes Discharge Plan - Med Rec/Dispo Referrals/Follow Up: Sharee Huang MD [Physician] - (In approximately 10 days at [facility] Sagar Chowdhury MD [Physician] - (Next week on Thursday as previously discussed) Tj Salcido MD [Physician] - (As previously scheduled on 05/12) Yudelka Instructions: Wound Infection (DC) Prescriptions: New DAPTOmycin [Daptomycin] 420 mg IV DAILY #41 vial Continue Amlodipine Besylate 5 mg PO BID #60 tab Venlafaxine HCl [Venlafaxine HCl ER] 75 mg PO DAILY #0 Mapap Extra Strength 500 mg tablet 500 mg PO Q6H PRN PRN Reason: Pain ergocalciferol (vitamin D2) 50,000 unit capsule 50,000 unit PO 2XW #26 cap Changed Insulin Lispro [HumaLOG] 7 unit SQ AC15 #30 Insulin Glargine,Hum.rec.anlog [Toujeo Solostar] 20 unit SQ HS #0 Discontinued Cipro (ciprofloxacin) 500 mg tablet 500 mg PO BID tab Discharge Instructions/Outpatient Orders: Final Provider Discharge Instructions Location: Determined By Patient - Disposition 01 Discharged Home, Self-Care
[2017-05-16] MEDS ORDERED: DAPTOMYCIN IVP SCH (10:00)
[2017-05-16] MEDS ORDERED: NS IVP SCH (10:00)
== END 2017-05-02 13:00 | disposition home or self-care (01) | DRG 629 ==
LOC: SRG
PROVIDERS: ADMIT Internal Medicine; ATTEND Internal Medicine